=== PATIENT | female | born 1960 | race Caucasian/White ===

== ENCOUNTER → 2021-04-04 10:08 | Outpatient (CLI) | payer OTHER, SELFPAY ==
--- NOTE | 2021-04-04 10:13 | US_ITS ---
PROCEDURE: US TRANSVAGINAL CLINICAL INDICATION: LLQP COMPARISON: No exams were available for comparison FINDINGS: UTERUS: x 4cmx 3cm with a combined endometrial thickness of 4mm LEFT OVARY: [id number] with a volume of 1.4ml. RIGHT OVARY: 2cmx [id number] with a volume of 1ml. 1.5 cm anterior uterine fibroid. IMPRESSION: 1.5 cm anterior uterine fibroid. Otherwise unremarkable transvaginal ultrasound. Dictated by: Luis Felipe Pascual MD 04/04/2021 11:26 Luis Felipe Pascual MD in [place] 04/04/2021 11:26
--- NOTE | 2021-04-04 10:13 | MM_ITS ---
PROCEDURE: MM DIG SCREENING MAMM BI W/CAD Digital Breast Tomosynthesis Included CLINICAL INDICATION: Routine Mammogram Screening There is no personal or family history of breast cancer. COMPARISON: Previous outside images from [facility] were obtained but only the CC view lateral breast was visualized of four views study. TECHNIQUE: Standard CC and MLO images and 3D Tomosynthesis was obtained. R2 CAD reviewed. FINDINGS: Moderate diffuse fibroglandular densities are seen throughout both breast and the findings are bilateral and symmetrical. There is faint arterial calcification in each breast. There are few scattered benign-appearing microcalcifications in each breast. There is no suspicious lesion and no suspicious microcalcifications. IMPRESSION: Fibrofatty parenchyma with no suspicious lesions seen BI-RAD Category: 2 Benign Finding(s) FOLLOW-UP: 1YR 1 Year Follow-up (A letter has been sent to the patient regarding results of the study.) Dictated by: Dr. Ba Crews MD 04/09/2021 16:17 Dr. Ba Crews MD in [place] 04/09/2021 16:17
== END ==
PROVIDERS: PCP Family Medicine; Visit Provider Nurse Practitioner Obstetrics & Gynecology
DX: Z12.31 Encounter for screening mammogram for malignant neoplasm of breast (principal); R10.32 Left lower quadrant pain
CPT/HCPCS: 76830; 77063; 77067

== ENCOUNTER → 2023-01-14 07:27 | Outpatient (CLI) | payer OTHER, SELFPAY ==
[2023-01-14 07:51] LABS: Blood Urea Nitrogen 12 mg/dl (7-17); Estimated Glomerular Filt Rate 85 ml/min (>60); GFR (African American) 103 ML/MIN (>60)
--- NOTE | 2023-01-14 08:03 | CT_ITS ---
FINAL REPORT TECHNIQUE: After the administration of IV contrast, axial images through the abdomen was performed by computed tomography. This study was performed with techniques to keep radiation doses as low as reasonably achievable (ALARA). Individualized dose reduction techniques using automated exposure control or adjustment of mA and/or kV according to the patient's size were employed. CLINICAL HISTORY: HERNIA OF ANTERIOR ABDOMINAL WALL FINDINGS: There are nonspecific ground-glass opacities in the right middle lobe, infectious or inflammatory process is not excluded. There is fatty infiltration of the liver. There is a small cyst in the left lobe of the liver. Gallstones are seen in the gallbladder. There is slight asymmetric left perinephric stranding of uncertain etiology. There is no hydronephrosis or mass. The remaining solid abdominal organs are unremarkable. There is no small bowel obstruction. There is a midline ventral hernia above the level of the umbilicus. The hernia contains fat and anterior wall transverse colon. The defect measures 4 cm in axial dimension. There is no evidence of lymphadenopathy or ascites. There is moderate atherosclerotic disease. 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 Contrast is seen distal to this. There is no acute osseous abnormality. There are several lower thoracic spine compression fractures, age indeterminate. There are multilevel kyphoplasties in the lumbar spine. IMPRESSION: Supraumbilical hernia containing fat and portion of transverse colon. No evidence of obstruction. Nonspecific right middle lobe ground-glass opacities. Mild nonspecific asymmetric left perinephric stranding. 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 Reviewed, Interpreted and Dictated by Enid Kohler MD Transcribed by Yamileth Goyal Authenticated and [facility]
== END ==
PROVIDERS: PCP Family Medicine; Visit Provider Surgery
DX: K43.9 Ventral hernia without obstruction or gangrene (principal)
CPT/HCPCS: 36415; 74160; 82565; 84520; 94060; 94726; 94729; Q9967

== ENCOUNTER 2023-04-18 15:05 | Inpatient (IN) | payer OTHER, SELFPAY ==
[2023-04-18] VITALS (9 sets, daily range): BP systolic 70–103; BP diastolic 46–75; PULSE 86–106; RESP 17–22; TEMP 36.4–37.2; O2SAT 91–100; BMI 22.2; BMI 23.6
--- NOTE | 2023-04-18 15:10 | PC.NURSE ---
MD MADE AWARE OF B/P BOLUS STARTED
--- NOTE | 2023-04-18 15:11 | PC.NURSE ---
DR SILVA AT BEDSIDE
--- NOTE | 2023-04-18 15:15 | HMH.EDGENADL ---
Discharge Plan Disposition Patient Disposition: Admitted Condition: Fair Chief Complaint: Weakness Prescriptions Prescriptions: No Action triamterene-hydrochlorothiazid 37.5-25 mg tablet PO bupropion HCl 150 mg tablet sustained-release 12 hr PO metoprolol tartrate 25 mg tablet PO aspirin 81 mg tablet,chewable 81 mg PO levetiracetam 250 mg tablet PO clopidogrel 75 mg tablet PO alendronate 70 mg tablet PO atorvastatin 80 mg tablet PO pantoprazole 40 mg tablet,delayed release (DR/EC) PO albuterol sulfate 90 mcg/actuation HFA aerosol inhaler INHALATION fluticasone furoate-vilanterol 100-25 mcg/dose blister with device INHALATION Patient Comments: INHALE 1 PUFF INTO LUNGS EVERY DAY acetaminophen [Tylenol] 325 mg capsule 325 mg PO QID PRN nicotine [Nicoderm CQ] 21 mg/24 hr patch 24 hour 1 patch TRANSDERMA DAILY acetaminophen-codeine 300-30 mg tablet 1 tab PO BID PRN (Reason: pain) Qty: 20 0RF Referrals Follow up/Referrals: Jurgen Hartley MD [Primary Care Provider] - See instructions Clinical Impressions Clinical Impression: Acute dehydration, Acute hypokalemia, Hypoglycemia Diarrhea Qualifiers: Diarrhea type: presumed infectious Qualified Code(s): R19.7 - Diarrhea, unspecified Discharge ED Provider: Smita Quezada Adult HPI General Chief complaint: Weakness Stated complaint: WEAKNESS Time Seen by Provider: 04/18/23 15:10 Mode of Arrival: EMS Source of Information: Patient and EMS Limitations: No Limitations Description of Symptoms (Recalled from ER Triage Doc. by RN): PT BROUGHT IN VIA EMS FOR SEVERAL DAYS OF DIARRHEA AND WEAKNESS. PT HYPOTENSIVE PER EMS AND UPON ARRIVAL. NOTIFIED History of Present Illness HPI narrative: The patient complains of 4 days of diarrhea. She feels dizzy today. She denies any hematochezia or vomiting. Related Data Home Medications Medication Instructions Recorded Confirmed acetaminophen 325 mg capsule 325 mg PO QID PRN 03/31/21 03/31/21 (Tylenol) albuterol sulfate 90 mcg/actuation inhalation 03/31/21 03/31/21 aerosol inhaler alendronate 70 mg tablet mg PO 03/31/21 03/31/21 aspirin 81 mg chewable tablet 81 mg PO 03/31/21 03/31/21 atorvastatin 80 mg tablet mg PO 03/31/21 03/31/21 bupropion HCl 150 mg tablet,12 hr mg PO 03/31/21 03/31/21 sustained-release clopidogrel 75 mg tablet mg PO 03/31/21 03/31/21 fluticasone furoate 100 ea inhalation 03/31/21 03/31/21 mcg-vilanterol 25 mcg/dose inhalation powder levetiracetam 250 mg tablet mg PO 03/31/21 03/31/21 metoprolol tartrate 25 mg tablet mg PO 03/31/21 03/31/21 nicotine 21 mg/24 hr daily 1 patch transdermal DAILY 03/31/21 03/31/21 transdermal patch (Nicoderm CQ) pantoprazole 40 mg tablet,delayed mg PO 03/31/21 03/31/21 release triamterene 37.5 tab PO 03/31/21 03/31/21 mg-hydrochlorothiazide 25 mg tablet Previous Rx's Medication Instructions Recorded acetaminophen 300 mg-codeine 30 mg 1 tab PO BID PRN pain #20 tabs 03/31/21 tablet Allergies Allergy/AdvReac Type Severity Reaction Status Date / Time ibuprofen Allergy Verified 03/31/21 16:13 [facility] Disclaimer: The information contained in this section may have been updated after the patient was seen, as this information can be updated by other users. Social History Smoking Status: Current every day smoker tobacco type: cigarettes alcohol intake: never current occupational status: other Travel in the last 8 weeks: None ROS Obtained: Yes All systems reviewed & no additional complaints except as documented Physical Exam General General appearance: alert and in no apparent distress Head Head exam: atraumatic Eye Eye exam: Present normal appearance; Absent scleral icterus or jaundice ENT ENT exam: Present normal exam and mucous membranes moist Neck Neck exam: Present
[2023-04-18 15:25] LABS: Basophils # 0.1 K/mm3 (0-0.2); Basophils % 0.9 % (0.1-2.0); Eosinophils % 0.6 % (0.1-12.0); Hemoglobin 12.4 g/dL (12.2-16.2); Lymphocytes # 0.7 K/mm3 (0.7-4.5); Lymphocytes % 12.6 % (10-50); Mean Corpuscular HGB Conc 31.1 g/dL (31.8-35.4); Mean Corpuscular Hemoglobin 39.7 pg (27.0-31.2); Mean Corpuscular Volume 127.7 fl (81-99); Mean Platelet Volume 10.3 fl (7.4-10.4); Monocytes # 0.3 K/mm3 (0.1-1.0); Monocytes % 5.5 % (1.7-9.3); Neutrophils # 4.5 K/mm3 (1.8-7.8); Neutrophils % 80.5 % (37.0-80.0); Platelet Count 117 K/mm3 (142-424); Red Blood Count 3.13 M/mm3 (4.20-5.40); Red Cell Distribution Width 15.5 % (11.5-17.5); White Blood Count 5.6 K/mm3 (4.8-10.8)
[2023-04-18 15:27] LABS: Chloride 90 mmol/L (98-107); Sodium 136 mmol/L (136-145)
--- NOTE | 2023-04-18 15:27 | PC.NURSE ---
FAMILY UPDATED AT THIS TIME
[2023-04-18 15:29] LABS: Blood Urea Nitrogen 19 mg/dl (7-17); Creatinine Clearance Estimated 47 mL/min (50-200); Estimated Glomerular Filt Rate 38 ml/min (>60); GFR (African American) 46 ML/MIN (>60)
[2023-04-18 15:30] LABS: Alanine Aminotransferase 51 U/L (12-78); Alkaline Phosphatase 134 U/L (38-126); Anion Gap 22.7 mEq/L (5-15); Aspartate Amino Transferase 152 U/L (14-36); Bilirubin,Total 8.9 mg/dl (0.2-1.3); Calcium 6.8 mg/dl (8.4-10.2); Carbon Dioxide 26 mmol/L (22.0-30.0); Globulin 2.9 g/dL (1.3-3.2); Total Protein,Serum 5.9 g/dl (6.3-8.2)
[2023-04-18 15:37] LABS: Glucose 39 mg/dl (74-100); Potassium 2.7 mmoL/L (3.5-5.1)
--- NOTE | 2023-04-18 15:40 | INFXCTL.NOTE ---
D50 BOLUS GIVEN AT THIS TIME, PT REPOSITIONED IN BED. FAMILY AT BEDSIDE
--- NOTE | 2023-04-18 15:40 | PC.NURSE ---
Primary RN and MD Dr Quezada aware of critical results received, Potassium 2.7 and Glucose 39.
--- NOTE | 2023-04-18 15:45 | PC.NURSE ---
1545 D50 GIVEN PER VERBAL MD ORDER FOR GLUCOSE OF 39
[2023-04-18 16:33] LABS: Coronavirus 19, PCR Not Detected (NotDetected); Influenza A, PCR Not Detected (NotDetected); Influenza B, PCR Not Detected (NotDetected)
--- NOTE | 2023-04-18 17:06 | PC.NURSE ---
repeat fsbs 111 pt states no needs at this time, call harper in reach family at BS
--- NOTE | 2023-04-18 17:08 | PC.NURSE ---
DR SILVA SPEAKING WITH DR SUAREZ FOR ADMISSION
--- NOTE | 2023-04-18 17:13 | PC.NURSE ---
notified house furnishings supervisor of admission
--- NOTE | 2023-04-18 17:35 | PC.NURSE ---
REPORT GIVEN TO RULA RN
--- NOTE | 2023-04-18 19:31 | EXP.HP ---
History of Present Illness *Admission Date: 04/18/23 *Reason for visit:: Weakness, diarrhea *History of present illness: 62yo female with history of coronary artery bypass surgery, cirrhosis, alcoholism, tobacco use disorder, COPD. She presented to the ER after 3 to 4 days of nausea, diarrhea, weakness. Poor p.o. intake. Family has been encouraging her to come to the hospital for several days but she refused to come until today. Feels weak, unable to ambulate independently. Denies any blood in vomit or stools. Numerous electrolyte and nutritional deficiencies identified on work-up in the ER. Patient has severe hypokalemia, hypocalcemia, hypoglycemia in the 30s on arrival. Additionally with ANDERS. Appears to have some worsening component of her cirrhosis. Given these abnormalities, ER consulted medicine for admission. Concern for nutritional deficiency secondary to her alcoholism worsened by gastroenteritis. After arrival to the floor, patient provides history along with the supplementation from family at bedside. She has history significant for CABG, cirrhosis diagnosed many years ago secondary to her alcoholism. Additionally has COPD and a seizure disorder. Has had withdrawal seizures from alcohol cessation in the past. Last drink 5 days ago. Used to drink heavily with at least a pint of vodka a day. Now drinks 2-4 [place]'s a day. Smokes 10-20 handrolled cigarettes daily. Received D50 in the ER for hypoglycemia. Additionally labs noted to have macrocytosis. Concerning for vitamin deficiency secondary to her alcoholism. [facility] Disclaimer: The information contained in this section may have been updated after the patient was seen, as this information can be updated by other users. Medical History Alcoholism Cirrhosis COPD (chronic obstructive pulmonary disease) Hx of completed stroke Seizure disorder Surgical History Hx of CABG Family History Alcoholism Social History (Updated 04/18/23 @ 19:35 by Luis Felipe Solitario MD) Smoking Status: Current every day smoker tobacco type: cigarettes alcohol intake: current current occupational status: other Travel in the last 8 weeks: None Review of Systems Review of Systems Review of systems (narrative): 14 point review of systems performed, pertinent positives and negatives as per [facility] Meds Home Medications and Allergies Home Medications Medication Instructions Recorded Confirmed Type acetaminophen 300 mg-codeine 30 mg 1 tab PO BID PRN pain #20 tabs 03/31/21 03/31/21 Rx tablet acetaminophen 325 mg capsule 325 mg PO QID PRN 03/31/21 03/31/21 History (Tylenol) albuterol sulfate 90 mcg/actuation inhalation 03/31/21 03/31/21 History aerosol inhaler alendronate 70 mg tablet mg PO 03/31/21 03/31/21 History aspirin 81 mg chewable tablet 81 mg PO 03/31/21 03/31/21 History atorvastatin 80 mg tablet mg PO 03/31/21 03/31/21 History bupropion HCl 150 mg tablet,12 hr mg PO 03/31/21 03/31/21 History sustained-release clopidogrel 75 mg tablet mg PO 03/31/21 03/31/21 History fluticasone furoate 100 ea inhalation 03/31/21 03/31/21 History mcg-vilanterol 25 mcg/dose inhalation powder levetiracetam 250 mg tablet mg PO 03/31/21 03/31/21 History metoprolol tartrate 25 mg tablet mg PO 03/31/21 03/31/21 History nicotine 21 mg/24 hr daily 1 patch transdermal DAILY 03/31/21 03/31/21 History transdermal patch (Nicoderm CQ) pantoprazole 40 mg tablet,delayed mg PO 03/31/21 03/31/21 History release triamterene 37.5 tab PO 03/31/21 03/31/21 History mg-hydrochlorothiazide 25 mg tablet New Prescriptions to Start Prescriptions: Allergies Allergy/AdvReac Type Severity Reaction Status Date / Time ibuprofen Allergy Verified 03/31/21 16:13 Exam Data for Last 24 hours Vital signs and Labs for La
--- NOTE | 2023-04-18 19:40 | PC.NURSE ---
A&OX4. PT TOLERATING RA WELL. PT HAS INTERMITTENT COUGH, NON PRODUCTIVE THUS FAR. GRAND-DAUGHTERS AT BEDSIDE. PLUS 2 PITTING EDEMA TO BLE. SCRATCH FROM PET DOG TO R LOWER LEG. DRESSING IN PLACE, PICTURE ON CHART. SEIZURE PADS IN PLACE. PT BATHED UPON ARRIVAL TO FLOOR. BRIEF IN PLACE, IS INCONTINENT TO BOWEL AT THIS TIME. NO WITHDRAWAL SYMPTOMS NOTED AT THIS TIME. VSS.
--- NOTE | 2023-04-18 19:44 | PC.WOUNDNOTE ---
SCRATCH TO Theresa VOGEL FROM DOG.
[2023-04-18 20:02] LABS: INR 1.75 (0.9-1.1); Prothrombin Time 18.3 seconds (10.1-12.5)
[2023-04-18 20:06] LABS: Alanine Aminotransferase 50 U/L (12-78); Albumin Level 2.6 g/dl (3.5-5.0); Albumin/Globulin Ratio 1.1 (1.1-1.8); Alkaline Phosphatase 121 U/L (38-126); Anion Gap 20.4 mEq/L (5-15); Aspartate Amino Transferase 146 U/L (14-36); Bilirubin,Total 8.6 mg/dl (0.2-1.3); Blood Urea Nitrogen 17 mg/dl (7-17); Calcium 6.1 mg/dl (8.4-10.2); Carbon Dioxide 20 mmol/L (22.0-30.0); Chloride 97 mmol/L (98-107); Creatinine Clearance Estimated 58 mL/min (50-200); Estimated Glomerular Filt Rate 46 ml/min (>60); GFR (African American) 55 ML/MIN (>60); Globulin 2.4 g/dL (1.3-3.2); Glucose 66 mg/dl (74-100); Phosphorous 3.1 mg/dl (2.5-4.5); Sodium 135 mmol/L (136-145)
[2023-04-18 20:10] LABS: Ethyl Alcohol < 10 mg/dl (0-10); Potassium 2.4 mmoL/L (3.5-5.1)
[2023-04-18 21:26] LABS: Folate 4.37 ng/mL
[2023-04-18 21:27] LABS: Vitamin B12 > 1000 pg/mL (239-931)
--- NOTE | 2023-04-18 21:50 | PC.NURSE ---
LOW POTASSIUM 2.4 REPORTED TO OSIEL De Leon APRN
[2023-04-18 22:17] LABS: Chloride 99 mmol/L (98-107); Sodium 136 mmol/L (136-145)
[2023-04-18 22:19] LABS: Blood Urea Nitrogen 18 mg/dl (7-17); Creatinine Clearance Estimated 58 mL/min (50-200); Estimated Glomerular Filt Rate 46 ml/min (>60); GFR (African American) 55 ML/MIN (>60)
[2023-04-18 22:20] LABS: Alanine Aminotransferase 42 U/L (12-78); Albumin Level 2.5 g/dl (3.5-5.0); Alkaline Phosphatase 108 U/L (38-126); Anion Gap 17.5 mEq/L (5-15); Aspartate Amino Transferase 131 U/L (14-36); Bilirubin,Total 7.9 mg/dl (0.2-1.3); Calcium 6.3 mg/dl (8.4-10.2); Carbon Dioxide 22 mmol/L (22.0-30.0); Globulin 2.5 g/dL (1.3-3.2); Glucose 69 mg/dl (74-100)
[2023-04-18 22:33] LABS: Potassium 2.5 mmoL/L (3.5-5.1)
[2023-04-18 22:34] LABS: Magnesium 0.6 mg/dl (1.6-2.3)
--- NOTE | 2023-04-18 22:37 | PC.NURSE ---
CRITICAL POTASSIUM AND MAG 2.5 POTASSIUM AND 0.6 MAG REPORTED TO TANNER De Leon, FAMILY DAY CARE PROVIDER. CURRENTLY HAS POTASSIUM 20MEQ INFUSING AT 50ML/HR/PUMP IN NEW IV #20 RFA. HAS CALCIUM GLUCONATE 2 GM IN 100 NS INFUSING IN LAC. WILL HANG RALLY PK FLUIDS WHEN CALCIUM GLUCONATE IS COMPLETE WHICH HAS 2 GM MAG IN IT. PLACED ON TELE.
[2023-04-19] VITALS (31 sets, daily range): BP systolic 59–121; BP diastolic 38–78; PULSE 91–170; RESP 19–22; TEMP 36.6–37.4; O2SAT 84–97; BMI 24.5; BMI 23.6
[2023-04-19 00:54] LABS: POC Glucose,Bedside 79 (70-110)
--- NOTE | 2023-04-19 04:56 | PC.NURSE ---
PATIENT MEDICATED FOR LOW MAG, LOW POTASSIUM, AND LOW CALCIUM. CONTINUES TO HAVE BOUTS OF DIARRHEA. HAS BEEN TACHYCARDIC THIS SHIFT TO INCLUDE A BOUT OF SVT 150/MIN WHICH CONVERTED ON ITS OWN. BPs CONT TO RUN LOW 80s/50s. CIW 4-5. Is incont B&B.
--- NOTE | 2023-04-19 06:20 | PC.NURSE ---
critical lab mag 1.0 called to OSIEL De Leon APRN
[2023-04-19 06:55] LABS: Lymphocytes # 0.5 K/mm3 (0.7-4.5); Monocytes # 0.1 K/mm3 (0.1-1.0)
[2023-04-19 06:59] LABS: Basophils # 0.1 K/mm3 (0-0.2); Basophils % 2.2 % (0.1-2.0); Eosinophils % 0.5 % (0.1-12.0); Lymphocytes % 19.4 % (10-50); Mean Corpuscular Hemoglobin 39.3 pg (27.0-31.2); Mean Corpuscular Volume 130.9 fl (81-99); Mean Platelet Volume 10.8 fl (7.4-10.4); Monocytes % 5.2 % (1.7-9.3); Neutrophils # 1.7 K/mm3 (1.8-7.8); Neutrophils % 72.6 % (37.0-80.0); Platelet Count 91 K/mm3 (142-424); Red Blood Count 2.82 M/mm3 (4.20-5.40); White Blood Count 2.4 K/mm3 (4.8-10.8)
[2023-04-19 07:00] LABS: Hemoglobin 11.1 g/dL (12.2-16.2)
--- NOTE | 2023-04-19 07:02 | PC.NURSE ---
BLD SUGAR 49 THIS AM. RECEIVED D50 1 AMP IVP. RECHECK BLD SUGAR WAS 99. ALERT. SITTING UP EATING BREAKFAST.
[2023-04-19 07:06] LABS: Alanine Aminotransferase 42 U/L (12-78); Albumin Level 2.5 g/dl (3.5-5.0); Alkaline Phosphatase 143 U/L (38-126); Anion Gap 19.1 mEq/L (5-15); Aspartate Amino Transferase 193 U/L (14-36); Bilirubin,Total 7.8 mg/dl (0.2-1.3); Blood Urea Nitrogen 20 mg/dl (7-17); Calcium 6.7 mg/dl (8.4-10.2); Carbon Dioxide 18 mmol/L (22.0-30.0); Chloride 102 mmol/L (98-107); Creatinine Clearance Estimated 58 mL/min (50-200); Estimated Glomerular Filt Rate 46 ml/min (>60); GFR (African American) 55 ML/MIN (>60); Globulin 2.6 g/dL (1.3-3.2); Potassium 3.1 mmoL/L (3.5-5.1); Sodium 136 mmol/L (136-145); Total Protein,Serum 5.1 g/dl (6.3-8.2)
[2023-04-19 07:07] LABS: POC Glucose,Bedside 99 (70-110)
[2023-04-19 07:10] LABS: Glucose 44 mg/dl (74-100)
--- NOTE | 2023-04-19 07:53 | HMH.PHAINT1 ---
Pharmacy Intervention Comments: Patient's home medications verified and reviewed with patient and external pharmacy. -Edwin Montano, Pharm Student
--- NOTE | 2023-04-19 07:54 | XR_ITS ---
FINAL REPORT CLINICAL HISTORY: dyspnea, new O2 requirement FINDINGS: SINGLE VIEW CHEST There is cardiomegaly present. The patient is status postmedian sternotomy. There are bibasilar pulmonary opacities with the left being greater than the right, which is consistent with atelectasis or pneumonia. There is no pneumothorax. IMPRESSION: Bibasilar pulmonary opacities, left greater than right, consistent with atelectasis or pneumonia. Reviewed, Interpreted and Dictated by Kristian Petersen III, MD Transcribed by Rufina Delgado Authenticated and . [facility]
--- NOTE | 2023-04-19 09:32 | PC.NURSE ---
Courtesy Tech Note: pt is sleeping with call harper within reach.
[2023-04-19 11:15] LABS: POC Glucose,Bedside 86 (70-110)
--- NOTE | 2023-04-19 13:48 | EXP.ACUTE.PN ---
Subjective *Date: 04/19/23 *Time: 13:48 Interval history: Patient clinically worsened overnight. Has developed low blood pressure this morning. Electrolytes grossly abnormal, replating overnight. Started on oxygen. Denies chest pain, nausea, vomiting. Had 1 bowel movement overnight. Medical Exam Vital signs and Labs for Last 24 Hours: Vital Signs Temp Pulse Pulse Resp BP BP Pulse Ox 04/19/23 12:00 130 H 04/19/23 11:47 120 H 20 69/46 L 89 L 04/19/23 11:32 116 H 21 59/38 L 91 L 04/19/23 11:30 118 H 21 62/38 L 92 L 04/19/23 10:59 118 H 20 87/48 L 92 L 04/19/23 12:15 124 H 22 95/64 L 93 L 04/19/23 12:00 132 H 22 79/47 L 91 L 04/19/23 11:28 97.8 F 04/19/23 10:53 80/64 L 04/19/23 08:00 120 H 04/19/23 08:00 97.9 F 122 H 20 88/52 L 93 L 04/19/23 04:00 97.8 F 119 H 20 80/50 L 96 04/19/23 04:00 120 H 04/19/23 01:00 115 H 04/19/23 00:00 98.3 F 116 H 22 84/48 L 84 L 04/18/23 20:00 97 04/18/23 20:00 98.1 F 105 H 20 81/47 L 97 04/18/23 19:14 98.6 F 105 H 20 84/50 L 91 L 04/18/23 17:45 98.9 F 100 H 18 101/60 L 04/18/23 17:00 100 H 101/60 L 99 04/18/23 16:30 86 99/59 L 100 04/18/23 16:00 98 H 103/75 L 100 04/18/23 15:30 96 H 17 90/48 L 95 04/18/23 15:20 104 H 22 80/49 L 95 04/18/23 15:05 97.6 F 106 H 20 70/46 L 96 Intake and Output 04/18/23 04/19/23 04/19/23 23:59 07:59 15:59 Intake Total 1200 / 2970.163 1770.163 / 2970.163 Output Total 0 / 0 0 / 0 Balance 0 / 200 1200 / 2970.163 1770.163 / 2970.163 Intake: Intake, Oral Amount 360 / 360 Intake, Total IV Amount 1200 / 2610.163 1410.163 / 2610.163 Calcium Gluconate 2,000 mg In 0 100 / 100 .9 % Sodium Chloride 100 ml @ 60 mls/hr IV ONCE ONE Rx#: [id number] KCl 20mEq/100ml 100 ml @ 50 mls 100 / 100 /hr IV ONCE ONE Rx#:[id number] Mvi, Adult No.1 with Vit K 10 1000 / 2392 1392 / 2392 ml Thiamine HCl 100 mg Magnesium Sulfate 2 gm In Lactated Ringers 1000ML 1,000 ml @ 125 mls/hr IV DAILY [facility] Rx #:[id number] Output: Output, Urine Amount 0 / 0 0 / 0 Other: Number of Unmeasured Voids 1 0 Number of Bowel Movements 2 1 Weight 75.013 kg 75 kg Patient Weight 04/19/23 23:59 Weight 75 kg Laboratory Results - last 24 hr 04/18/23 15:06: WBC 5.6, RBC 3.13 L, Hgb 12.4, Hct 40.0, MCV 127.7 H, MCH 39.7 H, MCHC 31.1 L, RDW 15.5, Plt Count 117 L, MPV 10.3, Neut % (Auto) 80.5 H, Lymph % (Auto) 12.6, [place] % (Auto) 5.5, Eos % (Auto) 0.6, Baso % (Auto) 0.9, Neut # (Auto) 4.5, Lymph # (Auto) 0.7, [place] # (Auto) 0.3, Eos # (Auto) 0.0, Baso # (Auto) 0.1, Sodium 136, Potassium 2.7 L*, Chloride 90 L, Carbon Dioxide 26, Anion Gap 22.7 H, BUN 19 H, Creatinine 1.40 H, Estimated Creat Clear 47, Estimated GFR 38 L, Est GFR ( Amer) 46 L, Glucose 39 L*, Calcium 6.8 L, Phosphorus 4.0, Total Bilirubin 8.9 H, AST 152 H, ALT 51, Alkaline Phosphatase 134 H, Total Protein 5.9 L, Albumin 3.0 L, Globulin 2.9, Albumin/Globulin Ratio 1.0 L 04/18/23 16:30: SARS-CoV-2 (PCR) Not detected, Influenza A Untype (PCR) Not detected, Influenza Type B (PCR) Not detected 04/18/23 19:35: PT 18.3 H, INR 1.75 H, APTT 33.0 H, Sodium 135 L, Potassium 2.4 L*, Chloride 97 L, Carbon Dioxide 20 L, Anion Gap 20.4 H, BUN 17, Creatinine 1.20 H, Estimated Creat Clear 58, Estimated GFR 46 L, Est GFR ( Amer) 55 L, Glucose 66 L D, Calcium 6.1 L, Phosphorus 3.1, Total Bilirubin 8.6 H, AST 146 H, ALT 50, Alkaline Phosphatase 121, Total Protein 5.0 L, Albumin 2.6 L D, Globulin 2.4, Albumin/Globulin Ratio 1.1, Vitamin B12 > 1000 H, Folate 4.37, Plasma/Serum Alcohol < 10 04/18/23 22:06: Sodium 136, Potassium 2.5 L*, Chloride 99, Carbon Dioxide 22, Anion Gap 17.5 H, BUN 18 H, Creatinine 1.20 H, Estimated Creat Clear 58, Estimated GFR 46 L, Est GFR ( Kalina
--- NOTE | 2023-04-19 14:06 | PC.NURSE ---
Courtesy Tech Note: family at bedside, call harper within reach. no requests voiced at this time.
--- NOTE | 2023-04-19 14:08 | DIET.NUTRFU ---
lives with daughter and granddaughter. decline in mobility, dependent on others. Before this recent illness, family reported she was going to bathroom independently, EtOH with cirrhosis, last drink 5 days ago. Smoker 20cigs/day. diarrhea x5 days with no intake. Wt in [place] office was #164 03/31. +2 edema. Patient reported her stomach was hard full of fluid, CBW 165#. Spoke to patient today with grand kids present. Over the last year she has only been grazing throughout day eating couple bites here and there. She dislikes ensure/boost willing to try ensure clear. RD educated on low sodium to avoid more fluid gains, she does add salt at times. Based o edema, lack of intake, labs and change in mobility she triggers for severe PCM, provider aware
[2023-04-19 14:54] LABS: Chloride 99 mmol/L (98-107); Potassium 3.1 mmoL/L (3.5-5.1); Sodium 136 mmol/L (136-145)
[2023-04-19 14:56] LABS: Alanine Aminotransferase 52 U/L (12-78); Aspartate Amino Transferase 223 U/L (14-36); Blood Urea Nitrogen 21 mg/dl (7-17); Creatinine Clearance Estimated 58 mL/min (50-200); Estimated Glomerular Filt Rate 46 ml/min (>60); GFR (African American) 55 ML/MIN (>60)
[2023-04-19 14:57] LABS: Albumin Level 2.7 g/dl (3.5-5.0); Albumin/Globulin Ratio 0.9 (1.1-1.8); Alkaline Phosphatase 168 U/L (38-126); Anion Gap 18.1 mEq/L (5-15); Bilirubin,Total 9.2 mg/dl (0.2-1.3); Calcium 7.6 mg/dl (8.4-10.2); Carbon Dioxide 22 mmol/L (22.0-30.0); Globulin 2.9 g/dL (1.3-3.2); Glucose 80 mg/dl (74-100); Total Protein,Serum 5.6 g/dl (6.3-8.2)
[2023-04-19 14:58] LABS: Magnesium 1.8 mg/dl (1.6-2.3)
--- NOTE | 2023-04-19 16:04 | PC.NURSE ---
Courtesy Tech Note: pt received a bed bath and a gown change. pt is right side lying. call harper within reach, no further requests at this time.
[2023-04-19 17:17] LABS: POC Glucose,Bedside 100 (70-110)
--- NOTE | 2023-04-19 17:17 | PC.NURSE ---
Patient on 10mcg of levophed. Titrating per protocol to maintain map of 65 or greater. Pain reported in abdomen, morphine given relief noted. Heart rate 130's, 2LNC. Patient alert and oriented. Blood sugars stable. No other changes noted.
--- NOTE | 2023-04-19 18:14 | ECG_ITS ---
APPROVED REPORT Exam: Resting ECG HR:176 bpm ECG Measurements Heart Rate 176 AXES QRSd 74 QRS 22 QT 270 T 61 QTc 364 Conclusion ATRIAL FIBRILLATION WITH RAPID VENTRICULAR RESPONSE LOW QRS VOLTAGE IN PRECORDIAL LEADS [QRS DEFLECTION < 1.0 mV IN CHEST LEADS] POSSIBLE ANTERIOR MYOCARDIAL INFARCTION , OF INDETERMINATE AGE [30 ms Q WAVE IN V3/V4, OR R < 0.2 mV IN V4] CRITICAL TEST RESULT UNCONFIRMED REPORT Electronically signed by : Benny Bernard MD 04/20/2023 20:28:54
--- NOTE | 2023-04-19 18:30 | PC.NURSE ---
pt heart rate sustaining 170's, ekg obtained, rhythm afib with rvr. Dr. Solitario notified. IV metoprolol ordered
[2023-04-19 21:44] LABS: POC Glucose,Bedside 228 (70-110)
[2023-04-20] VITALS (45 sets, daily range): BP systolic 74–145; BP diastolic 23–91; PULSE 102–138; RESP 16–29; TEMP 36.4–37.3; O2SAT 80–100; BMI 24.3
[2023-04-20 05:25] LABS: POC Glucose,Bedside 133 (70-110)
--- NOTE | 2023-04-20 05:27 | PC.NURSE ---
04/19/230--Increased Levo to 25mcg 1950--Decreased Levo to 20mcg 2016--Increased Levo to 22.5mcg 2129--Decreased Levo to 20mcg 5--Decreased Levo to 18mcg 2345--Increased Levo to 20mcg 04/20/23 0000--Decreased Levo to 18mcg 0150--Increased Levo to 20mcg Many titrations on the Levo throughout the night, but since 0150, it has been at 20mcg with MAPS ranging from 65-70. No acute distress noted and will continue to monitor.
--- NOTE | 2023-04-20 07:30 | XR_ITS ---
PROCEDURE INFORMATION: Exam: XR Chest Exam date and time: 04/20/2023 7:58 AM Age: 62 years old Clinical indication: Shortness of breath; Additional info: Increased o2 requirement TECHNIQUE: Imaging protocol: Radiologic exam of the chest. Views: 1 view. COMPARISON: CR XR CHEST PORTABLE 04/19/2023 8:15 AM FINDINGS: Lungs: Emphysematous change, interstitial disease, and basilar airspace disease. Pleural spaces: Small left pleural effusion. Heart/Mediastinum: No cardiomegaly. Vasculature: Calcification of the thoracic aorta. New Bones/joints: Osteopenia and degenerative change. Median sternotomy with broken sutures. IMPRESSION: 1. Emphysematous change, interstitial disease, and basilar airspace disease. 2. Small left pleural effusion. 3. Additional findings as described above.
[2023-04-20 07:54] LABS: Basophils # 0.1 K/mm3 (0-0.2); Eosinophils # 0.1 K/mm3 (0.0-0.4); Eosinophils % 0.8 % (0.1-12.0); Hematocrit 40.9 % (37.0-47.0); Hemoglobin 12.6 g/dL (12.2-16.2); Mean Corpuscular HGB Conc 30.8 g/dL (31.8-35.4); Mean Corpuscular Volume 130.8 fl (81-99); Mean Platelet Volume 8.9 fl (7.4-10.4); Monocytes # 0.2 K/mm3 (0.1-1.0); Monocytes % 3.2 % (1.7-9.3); Neutrophils # 5.1 K/mm3 (1.8-7.8); Neutrophils % 79.8 % (37.0-80.0); Platelet Count 94 K/mm3 (142-424); Red Blood Count 3.13 M/mm3 (4.20-5.40); Red Cell Distribution Width 15.1 % (11.5-17.5); White Blood Count 6.4 K/mm3 (4.8-10.8)
[2023-04-20 07:55] LABS: Mean Corpuscular Hemoglobin 40.3 pg (27.0-31.2)
--- NOTE | 2023-04-20 08:00 | PC.NURSE ---
Turned 02 down to 4L NC. Pt tolerating well. Will continue to monitor.
[2023-04-20 08:03] LABS: Chloride 100 mmol/L (98-107); Potassium 3.8 mmoL/L (3.5-5.1); Sodium 133 mmol/L (136-145)
[2023-04-20 08:06] LABS: Alanine Aminotransferase 54 U/L (12-78); Albumin Level 2.7 g/dl (3.5-5.0); Albumin/Globulin Ratio 0.9 (1.1-1.8); Alkaline Phosphatase 183 U/L (38-126); Anion Gap 15.8 mEq/L (5-15); Aspartate Amino Transferase 194 U/L (14-36); Bilirubin,Total 10.3 mg/dl (0.2-1.3); Blood Urea Nitrogen 23 mg/dl (7-17); Calcium 7.2 mg/dl (8.4-10.2); Carbon Dioxide 21 mmol/L (22.0-30.0); Creatinine Clearance Estimated 72 mL/min (50-200); Estimated Glomerular Filt Rate 56 ml/min (>60); GFR (African American) 68 ML/MIN (>60); Glucose 86 mg/dl (74-100); Magnesium 1.7 mg/dl (1.6-2.3); Total Protein,Serum 5.7 g/dl (6.3-8.2)
--- NOTE | 2023-04-20 08:48 | PC.NURSE ---
Turned 02 down to 3L NC. Pt tolerating well. Will continue to monitor.
--- NOTE | 2023-04-20 10:09 | PC.NURSE ---
[address] Solitario face to face that pt is not tolerating ivf bolus at this time. pt has currently had . pt lung sounds were reassessed and have worsened on the left. left lung campbell contain fine crackles throughout (change from rhonchi and scattered crackles from am assessment.) right lung field is diminished with scattered wheezes. (less wheezes noted than this am). pt o2 has been titrated throughout the shift. o2 was increased to 5lpm r/t sats of 82-86%.
--- NOTE | 2023-04-20 10:51 | PC.NURSE ---
o2 NOTED AT 84-86% ON 6L NC. PT PLACED ON 35% VENTI MASK NOTED AT 88%. PT CURRENTLY ON 40% VENTI MASK AT 91%. WILL CONTINUE TO MONITOR.
[2023-04-20 10:54] LABS: INR 1.45 (0.9-1.1); Prothrombin Time 15.3 seconds (10.1-12.5)
[2023-04-20 11:27] LABS: POC Glucose,Bedside 124 (70-110)
--- NOTE | 2023-04-20 11:31 | PC.NURSE ---
Addendum entered by Marcela Martínez RN 04/20/23 13:42: 1340 pt levophed decreased to 20mcg/min r/t bp 114/82 (92) Original Note: at start of shift pt Levophed drip infusing at 18mcg/min. 1005 pt levophed drip increased to 20mcg/min r/t bp 80/46 (57) 1015 new parameters received from Dr Solitario. titrate drips for SBP in 's 1130 levophed drip increased to 22mcg/min r/t bp 82/37 and 89/63 (Vasopressin drip also started at this time.)
--- NOTE | 2023-04-20 11:43 | PC.NURSE ---
notified Dr Solitario of pt's heart rate in the 120s, BP 89/63, 0.01 on vasopressin, and 22 on levo. No new orders.
--- NOTE | 2023-04-20 11:51 | PC.NURSE ---
Addendum entered by Marcela Martínez RN 04/20/23 18:22: 1440 pt placed on vapotherm 30L/70% by RT Addendum entered by Marcela Martínez RN 04/20/23 14:06: 1400 pt o2 sats noted to be low to mid 80's. o2 increased to 50% on venti mask Original Note: 1030 pt currently on 6lpm/nc, sats in the low 80's. pt placed on venti mask at 35% 1045 pt o2 sats in the 88-89 range. venti mask increased to 40%.
[2023-04-20 14:05] LABS: ABG Base Excess -4.6 mmol/L (-2.4-2.3); ABG HCO3 21.6 mmhg (22.0-26.0); ABG Oxygen Saturation 67 % (90-100); ABG PCO2 43.7 mmhg (35.0-45.0); ABG PH 7.31 mmol/L (7.35-7.45); ABG TCO2 22.9 mmhg (23-27)
--- NOTE | 2023-04-20 14:31 | EXP.ACUTE.PN ---
Subjective *Date: 04/20/23 *Time: 14:31 Interval history: Interactive on exam. Afebrile at this time. Remains tachycardic. Blood pressure necessitating increase in Levophed on rounds. Remains tachycardic with heart rate 100-120. Ate breakfast this morning. No chest pain, appears dyspneic. Medical Exam Vital signs and Labs for Last 24 Hours: Vital Signs Temp Pulse Pulse Resp BP Pulse Ox FiO2 04/20/23 12:00 120 H 04/20/23 08:00 110 H 04/20/23 12:21 128 H 20 113/80 85 L 40 04/20/23 12:00 120 H 20 105/76 L 92 L 40 04/20/23 11:45 121 H 20 99/67 L 94 L 40 04/20/23 11:17 119 H 20 82/37 L 91 L 40 04/20/23 11:00 117 H 18 82/46 L 89 L 40 04/20/23 10:45 117 H 20 97/59 L 88 L 35 04/20/23 10:30 116 H 20 91/35 L 84 L 04/20/23 10:12 114 H 20 98/55 L 80 L 04/20/23 10:03 115 H 18 80/46 L 84 L 04/20/23 10:00 113 H 20 76/50 L 93 L 04/20/23 09:47 117 H 20 75/42 L 92 L 04/20/23 09:00 106 H 18 80/48 L 94 L 04/20/23 08:20 105 H 16 81/61 L 96 04/20/23 08:15 104 H 16 74/23 L 94 L 04/20/23 11:08 97.8 F 04/20/23 10:12 114 H 20 98/55 L 92 L 04/20/23 09:29 109 H 04/20/23 09:29 110 H 04/20/23 09:29 93 L 04/20/23 07:45 102 H 93 L 04/20/23 08:00 99.1 F 106 H 16 86/60 L 94 L 04/20/23 07:34 97.9 F 04/20/23 06:23 105 H 04/20/23 06:23 105 H 04/20/23 06:23 100 04/20/23 04:00 110 H 04/20/23 04:00 97.7 F 115 H 17 98/57 L 96 04/20/23 00:00 120 H 04/19/23 23:58 97.8 F 120 H 121/78 97 04/19/23 23:57 97 04/19/23 20:00 99.2 F 122 H 89/62 L 92 L 04/19/23 20:00 120 H 04/19/23 19:40 121 H 04/19/23 19:40 124 H 04/19/23 19:40 93 L 04/19/23 18:45 112 H 19 73/50 L 96 04/19/23 18:30 106 H 21 77/47 L 92 L 04/19/23 18:00 170 H 21 96/48 L 90 L 04/19/23 16:00 140 H 04/19/23 17:15 135 H 20 102/54 L 90 L 04/19/23 17:00 131 H 20 91/51 L 91 L 04/19/23 16:30 131 H 19 101/46 L 93 L 04/19/23 16:00 136 H 22 87/51 L 90 L 04/19/23 15:30 134 H 21 95/53 L 92 L 04/19/23 15:00 137 H 21 93/64 L 92 L 04/19/23 16:02 99.3 F Intake and Output 04/19/23 04/20/23 04/20/23 23:59 07:59 15:59 Intake Total 1060.487 / 4063.275 840 / 942 102 / 942 Output Total 0 / 0 0 / 0 0 / 0 Balance 1060.487 / 4063.275 840 / 942 102 / 942 Intake: Intake, Oral Amount 450 / 810 582 / 582 0 / 582 Intake, Total IV Amount 610.487 / 3253.275 258 / 360 102 / 360 Calcium Gluconate 2,000 mg In 0 100 / 200 .9 % Sodium Chloride 100 ml @ 60 mls/hr IV ONCE ONE Rx#: [id number] Ceftriaxone Sodium 2 gm In 0.9 100 / 100 102 / 102 % Sodium Chloride 100 ml @ 200 mls/hr IV Q24H [facility] Rx#:[id number] Magnesium Sulfate in Water 2 gm 50 / 50 In 50 ml @ 50 mls/hr IV ONCE ONE Rx#:[id number] Norepinephrine Bitartrate 8 mg 161 / 161 In Dextrose 5 % in Water 250 ml @ 2 MCG/MIN 3.87 mls/hr IV . Q24H [facility] Rx#:[id number] Output: Output, Urine Amount 0 / 0 0 / 0 0 / 0 Other: Number of Unmeasured Voids 1 1 1 Number of Bowel Movements 1 Weight 77.111 kg Patient Weight 04/20/23 23:59 Weight 77.111 kg Laboratory Results - last 24 hr 04/19/23 14:05: Sodium 136, Potassium 3.1 L, Chloride 99, Carbon Dioxide 22, Anion Gap 18.1 H, BUN 21 H, Creatinine 1.20 H, Estimated Creat Clear 58, Estimated GFR 46 L, Est GFR ( Amer) 55 L, Glucose 80 D, Calcium 7.6 L, Magnesium 1.8 D, Total Bilirubin 9.2 H, AST 223 H, ALT 52, Alkaline Phosphatase 168 H, Total Protein 5.6 L, Albumin 2.7 L, Globulin 2.9, Albumin/Globulin Ratio 0.9 L 04/19/23 16:58: POC Glucose 100 04/19/23 21:12: POC Glucose 228 H 04/20/23 05:18: POC Glucose 133 H 04/20/23 07:10: WBC 6.4 D, RBC
[2023-04-20 14:41] LABS: Allen's Test Acceptable; Oxygen 40% %
[2023-04-20 14:42] LABS: ABG PO2 36.1 mmhg (80-100); Source Left Brachial
[2023-04-20 17:01] LABS: POC Glucose,Bedside 150 (70-110)
[2023-04-20 17:42] LABS: Peripheral Smear Review Scanned Result
[2023-04-20 18:13] LABS: Chloride 97 mmol/L (98-107)
[2023-04-20 18:14] LABS: Potassium 3.7 mmoL/L (3.5-5.1); Sodium 134 mmol/L (136-145)
--- NOTE | 2023-04-20 18:14 | PC.NURSE ---
PT IS ALERT TO SELF AT THIS TIME. PT IS UNABLE TO TELL STAFF WHERE SHE IS OR THE YEAR AT THIS TIME. INCREASED CONFUSION THROUGHOUT SHIFT. PT TOLERATING 30L 70% ON VAPOTHERM AT THIS TIME. RESPIRATIONS REGULAR AND UNLABORED. RIGHT LOWER LOBE DIMINISHED BREATH SOUNDS. CRACKLES NOTED THROUGHOUT. RHONCHI NOTED THROUGHOUT. OCCASIONAL DRY COUGH NOTED. HAND ASSISTANT PRESS OPERATOR EQUAL. +1 PULSES NOTED THROUGHOUT. +2 PITTING EDEMA NOTED TO BLE. ACTIVE BOWEL SOUNDS HEARD IN ALL 4 QUADRANTS. SOFT AND NONTENDER. NO BM THUS FAR. VOIDS PER PURWICK WITH CLEAR DARK YELLOW TO YELLOW URINE NOTED IN CANNISTER. BED ALARM IN PLACE. SEIZURE PRECAUTIONS IN PLACE. PT CURRENTLY ON 20MCG/MIN OF LEVO AND VASOPRESSION 0.01UNITS/MIN TOLERATING WELL. SBP ABOVE [address] SUAREZ'S ORDERS. FAMILY HAS BEEN AT BEDSIDE THIS AFTERNOON. FAMILY STATES PATIENT HAS SEEN DOGS THIS AFTERNOON. MITTENS IN PLACE FOR PROTECTION OF PATIENT AND DUE TO PT TRYING TO PULL OUT IV AND PULL OFF VAPOTHERM. CIWA COMPLETED NEEDED. CALL LIGHT WITHIN REACH. BED IN LOWEST POSITION.
[2023-04-20 18:16] LABS: Alanine Aminotransferase 60 U/L (12-78); Ammonia 37 umol/L (9-30); Aspartate Amino Transferase 184 U/L (14-36); Blood Urea Nitrogen 23 mg/dl (7-17); Creatinine Clearance Estimated 72 mL/min (50-200); Estimated Glomerular Filt Rate 73 ml/min (>60); GFR (African American) 88 ML/MIN (>60)
[2023-04-20 18:17] LABS: Albumin Level 2.8 g/dl (3.5-5.0); Albumin/Globulin Ratio 0.9 (1.1-1.8); Alkaline Phosphatase 213 U/L (38-126); Anion Gap 16.7 mEq/L (5-15); Bilirubin,Total 12.6 mg/dl (0.2-1.3); Calcium 7.9 mg/dl (8.4-10.2); Carbon Dioxide 24 mmol/L (22.0-30.0); Globulin 3.2 g/dL (1.3-3.2); Glucose 154 mg/dl (74-100); Magnesium 1.6 mg/dl (1.6-2.3)
--- NOTE | 2023-04-20 18:19 | PC.NURSE ---
Late entry: [address] Solitario face to face that pt is having periods of ectopy and runs of v tach. no new orders.
--- NOTE | 2023-04-20 18:59 | PC.NURSE ---
All drip titrations and critical care of patient provided by Stefani Velasquez RN was provided under my direct supervision.
--- NOTE | 2023-04-20 19:43 | PC.NURSE ---
Notified Omid ENGINEERING JOB TITLES that pt was continuing to have 2-3 beat runs of vtach and HR was maintaining 140s-150. Pt had also went in to SVT for about 10 seconds but was now back in sinus tach. Omid states to give 5mg Metoprolol IVP now.
[2023-04-20 20:26] LABS: Adenovirus F 40/41, stool Not Detected (NotDetected); Astrovirus Not Detected (NotDetected); Cryptosporidium Not Detected (NotDetected); Cyclospora Cayetanesis Not Detected (NotDetected); Entamoeba histolytica Not Detected (NotDetected); Enteroaggregative E coli Not Detected (NotDetected); Enteropathogenic E coli Not Detected (NotDetected); Enterotoxigenic E coli Not Detected (NotDetected); Giardia lamblia Not Detected (NotDetected); Norovirus Not Detected (NotDetected); Plesimonas Shigalloides, PCR Not Detected (NotDetected); Rotavirus A Not Detected (NotDetected); Salmonella, PCR Not Detected (NotDetected); Sapovirus Not Detected (NotDetected); Shiga-like toxin E coli Not Detected (NotDetected); Shigella Enterovasive E coli Not Detected (NotDetected); Vibrio Cholerae Not Detected (NotDetected); Vibrio, PCR Not Detected (NotDetected); Yersinia Entercolitica, PCR Not Detected (NotDetected)
--- NOTE | 2023-04-20 20:55 | PC.NURSE ---
Levo gtt titrated down to 18mcg/min at this time.
--- NOTE | 2023-04-20 21:05 | PC.NURSE ---
Levo down to 16mcg/min at this time.
[2023-04-20 21:42] LABS: POC Glucose,Bedside 176 (70-110)
--- NOTE | 2023-04-20 21:44 | PC.NURSE ---
Levo up to 18mcg/min at this time.
[2023-04-20 22:24] LABS: Campylobacter Detected (NotDetected); Clostridium Difficile A/B, PCR Detected (NotDetected)
[2023-04-21] VITALS (36 sets, daily range): BP systolic 76–131; BP diastolic 43–97; PULSE 94–153; RESP 14–25; TEMP 36.6–36.8; O2SAT 90–100; BMI 24.6
--- NOTE | 2023-04-21 01:02 | PC.NURSE ---
Levo gtt down to 16 mcg/min at this time.
--- NOTE | 2023-04-21 03:12 | PC.NURSE ---
levo down to 14mcg/min at this time.
--- NOTE | 2023-04-21 03:32 | PC.NURSE ---
Vasopressin gtt put on standby at this time.
--- NOTE | 2023-04-21 04:05 | PC.NURSE ---
Levo gtt down to 12mcg/min at this time.
--- NOTE | 2023-04-21 04:37 | PC.NURSE ---
Levo down to 10mcg/min at this time.
--- NOTE | 2023-04-21 05:04 | PC.NURSE ---
levo up to 12mcg/min at this time
[2023-04-21 05:52] LABS: POC Glucose,Bedside 131 (70-110)
[2023-04-21 05:58] LABS: Basophils # 0.1 K/mm3 (0-0.2); Basophils % 0.5 % (0.1-2.0); Eosinophils % 0.1 % (0.1-12.0); Hematocrit 39.2 % (37.0-47.0); Hemoglobin 12.2 g/dL (12.2-16.2); Lymphocytes # 1.4 K/mm3 (0.7-4.5); Lymphocytes % 11.8 % (10-50); Mean Corpuscular Hemoglobin 39.9 pg (27.0-31.2); Mean Corpuscular Volume 128.7 fl (81-99); Mean Platelet Volume 10.6 fl (7.4-10.4); Monocytes # 0.6 K/mm3 (0.1-1.0); Monocytes % 5.2 % (1.7-9.3); Neutrophils # 9.8 K/mm3 (1.8-7.8); Neutrophils % 82.3 % (37.0-80.0); Platelet Count 72 K/mm3 (142-424); Red Blood Count 3.05 M/mm3 (4.20-5.40); Red Cell Distribution Width 15.9 % (11.5-17.5); White Blood Count 11.8 K/mm3 (4.8-10.8)
[2023-04-21 06:08] LABS: Alanine Aminotransferase 68 U/L (12-78); Albumin Level 2.7 g/dl (3.5-5.0); Albumin/Globulin Ratio 0.9 (1.1-1.8); Alkaline Phosphatase 207 U/L (38-126); Anion Gap 19.8 mEq/L (5-15); Aspartate Amino Transferase 221 U/L (14-36); Bilirubin,Total 12.9 mg/dl (0.2-1.3); Blood Urea Nitrogen 23 mg/dl (7-17); Calcium 7.7 mg/dl (8.4-10.2); Carbon Dioxide 23 mmol/L (22.0-30.0); Chloride 97 mmol/L (98-107); Creatinine Clearance Estimated 73 mL/min (50-200); Estimated Glomerular Filt Rate 73 ml/min (>60); GFR (African American) 88 ML/MIN (>60); Globulin 3.1 g/dL (1.3-3.2); Glucose 113 mg/dl (74-100); Potassium 3.8 mmoL/L (3.5-5.1); Sodium 136 mmol/L (136-145); Total Protein,Serum 5.8 g/dl (6.3-8.2)
--- NOTE | 2023-04-21 06:08 | PC.NURSE ---
Levo down to 10mcg/min
[2023-04-21 06:28] LABS: Magnesium 1.8 mg/dl (1.6-2.3)
--- NOTE | 2023-04-21 06:43 | PC.NURSE ---
Levophed gtt continues at 10mcg/min, Vasopressin gtt remains on standby. RT titrated vapotherm down to 30L/60%, pt tolerating well with sats in mid 90s. Pt is alert to person only and has been very restless t/o shift, pulling at lines and cords. Pt has had multiple incontinent BMs this shift. UO unable to be measured due to pt continuously moving purewick. Pt CIWA score has been 11-15 t/o shift, pt admits to having visual hallucinations, and is visually having tremors. Pt has received 2x doses of 5mg Metoprolol IVP PRN due to HR 140-150 w/ dysrhythmia. Pt HR currently maintaining 110-125, sinus tach with occ. PAC. Bed alarm on and seizure pads in place for pt safety. Call light within reach.
--- NOTE | 2023-04-21 07:21 | PC.NURSE ---
bp 106/86 (92), decreased pt's levophed drip to 8mcg/min
--- NOTE | 2023-04-21 08:36 | PC.NURSE ---
0800-bp 76/54, increased levophed drip to 10mcg/min 0805-MD Solitario at bedside and instructed this RN to restart vasopressin at 0.01units/hr and try and get levophed off first instead of going up on the levophed for hypotension; bp 78/47, vasopressin drip restarted at 0.01units/hr and levophed continued at 10mcg/min 0815-bp 94/56 (68), decreased levophed drip to 8mcg/min 0830-bp 100/77 (84), decreased levophed drip to 6mcg/min
--- NOTE | 2023-04-21 08:39 | PC.NURSE ---
MD Solitario requested a prn neb to be given due to pt wheezing, Deepika RT came and gave pt treatment
--- NOTE | 2023-04-21 08:45 | PC.NURSE ---
spoke with pt's daughter via telephone, consented to having midline placed today and consent placed in chart
--- NOTE | 2023-04-21 09:09 | PC.NURSE ---
bp 100/68 (78), decreased levophed drip to 4mcg/min
--- NOTE | 2023-04-21 09:47 | HMH.OTEV ---
OT Inpatient Evaluation Rehab OT IP Evaluation Start: 04/19/23 07:49 Freq: ONCE Status: Active Protocol: Document 04/21/23 09:33 BARBARAVIENNA (Rec: 04/21/23 09:46 [facility] [id number]) Rehab OT IP Assessment Subjective History Pt oriented x 2 on arrival. Pt agreeable to engage in therapy evaluation. Pt does demonstrate confusion about place orientation. Pt is a 62yo female with history of coronary artery bypass surgery , cirrhosis, alcoholism, tobacco use disorder, COPD. Pt admitted for dehydration, diarrhea, hypoglycemia, and hypokalemia. Prior to being in the hosptial, pt lived with her daughter and granddaughter. Pt reports normally her granddaughter has to provide assistance with ADLs such as dressing and bathing. She is dependent upon family for completion of all IADLs. She explains she normally does not transfer well and requires assistance and a rolling walker. Subjective I don't understand where I am at. Objective Patient Orientation Person,Birthday Upper Extremity Gross ROM WFL Bed Mobility bed mobility-scooting,bed mobility - supine/sit,bed mobility - rolling Assist Level Maximum x 2 (75% assist) Rehab OT IP prob,goals,plan Problems Date of Evaluation: 04/21/23 OT IP Problems Bed Mobility,Transfers,Balance ,Self care,Safety Rehab Potential Rehab Potential Good Equipment Needs Assistive Devices Rolling / Wheeled Walker, Wheelchair Plan OT intervention Plan Bed Mobility,Transfers,Balance ,Self care,Safety,Therapeutic Exercise OT Plan Frequency BID Duration LOS Discharge Goals Bed Mobility Ability Assistance x1 Sit to Stand Chair Transfer Ability Moderate x 1 (50% assist) Chair Transfer Ability Moderate x 1 (50% assist) Chair Transfer Technique Stand Step Pivot Chair Transfer Assistive D
--- NOTE | 2023-04-21 09:49 | EXP.ACUTE.PN ---
Subjective *Date: 04/21/23 *Time: 11:48 Interval history: Blood pressure somewhat better overnight. Able to wean down on Levophed. Temporarily weaned off of vasopressin. Blood pressures softer this morning on rounds. Resume vasopressin. Stool sample came back positive last night for C. difficile. Initiated on vancomycin. Tolerating Vapotherm. Awake and alert on exam this morning, oriented only to self. Disoriented with time and place. Afebrile. No nausea or vomiting. Medical Exam Vital signs and Labs for Last 24 Hours: Vital Signs Temp Pulse Pulse Resp BP Pulse Ox FiO2 04/21/23 09:25 113 H 04/21/23 09:25 109 H 04/21/23 08:24 119 H 04/21/23 08:24 117 H 04/21/23 08:56 60 04/21/23 07:50 110 H 93 L 04/21/23 09:00 112 H 19 100/68 L 92 L 60 04/21/23 08:00 117 H 22 76/54 L 99 60 04/21/23 07:19 98.0 F 04/21/23 07:00 116 H 23 106/86 L 98 60 04/21/23 06:08 120 H 04/21/23 06:08 118 H 04/21/23 06:08 97 70 04/21/23 06:00 117 H 21 111/74 98 70 04/21/23 05:15 108/71 L 04/21/23 05:00 118 H 18 83/48 L 96 70 04/21/23 04:00 97.8 F 04/21/23 04:37 120/76 04/21/23 04:00 110 H 04/21/23 04:00 121 H 95 70 04/21/23 04:00 121 H 18 118/71 96 70 04/21/23 03:00 127 H 25 H 118/64 94 L 70 04/21/23 02:00 124 H 19 107/87 L 92 L 70 04/21/23 01:20 153 H 04/21/23 01:30 130 H 04/21/23 01:00 136 H 23 130/97 H 95 70 04/20/23 23:58 97.8 F 04/21/23 00:00 131 H 21 105/68 L 93 L 70 04/21/23 00:00 96 70 04/21/23 00:00 94 L 70 04/20/23 22:00 134 H 26 H 90/61 L 94 L 70 04/20/23 21:44 75/57 L 04/20/23 21:00 128 H 27 H 145/58 H 94 L 70 04/20/23 20:45 128 H 114/59 L 04/20/23 20:00 124 H 29 H 103/87 L 95 70 04/20/23 20:00 120 H 04/20/23 20:00 97.6 F 04/20/23 20:00 127 H 27 H 118/89 90 L 70 04/20/23 20:00 121 H 93 L 70 04/20/23 19:01 136 H 04/20/23 19:01 135 H 04/20/23 19:01 97 70 04/20/23 18:45 122 H 102/54 L 97 04/20/23 18:15 138 H 89/69 L 98 04/20/23 18:00 132 H 94/48 L 99 04/20/23 17:08 134 H 94/69 L 97 04/20/23 17:30 131 H 89/68 L 95 04/20/23 16:00 120 H 04/20/23 16:19 129 H 04/20/23 16:19 130 H 04/20/23 16:30 131 H 18 99/74 L 97 04/20/23 16:10 97 70 04/20/23 16:00 127 H 18 118/91 H 98 04/20/23 15:30 130 H 20 116/69 94 L 04/20/23 13:30 128 H 114/82 88 L 04/20/23 13:04 126 H 99/56 L 89 L 04/20/23 14:30 125 H 96/71 L 92 L 04/20/23 14:00 126 H 92/60 L 88 L 04/20/23 14:39 125 H 18 04/20/23 14:39 125 H 04/20/23 14:39 125 H 04/20/23 14:39 97 70 04/20/23 15:13 97.7 F 04/20/23 12:00 120 H 04/20/23 12:21 128 H 20 113/80 85 L 40 04/20/23 12:00 120 H 20 105/76 L 92 L 40 04/20/23 11:45 121 H 20 99/67 L 94 L 40 04/20/23 11:17 119 H 20 82/37 L 91 L 40 04/20/23 11:00 117 H 18 82/46 L 89 L 40 04/20/23 10:45 117 H 20 97/59 L 88 L 35 04/20/23 10:30 116 H 20 91/35 L 84 L 04/20/23 10:12 114 H 20 98/55 L 80 L 04/20/23 10:03 115 H 18 80/46 L 84 L 04/20/23 10:00 113 H 20 76/50 L 93 L 04/20/23 11:08 97.8 F 04/20/23 10:12 114 H 20 98/55 L 92 L Intake and Output 04/20/23 04/21/23 04/21/23 23:59 07:59 15:59 Intake Total 1386.2 / 2468.2 832 / 832 Output Total 2075 / 2075 125 / 125 Balance -688.8 / 393.2 707 / 707 Intake: Intake, Oral Amount 0 / 582 60 / 60 Intake, Total IV Amount 1386.2 / 1886.2 772 / 772 Cefepime HCl 2 gm In 0.9 % 200 / 200 Sodium Chloride 100 ml @ 200 mls/hr IV Q8H [facility] Rx#:[id number] Magnesium Sulfate in Water 2 gm 40 / 40
--- NOTE | 2023-04-21 09:50 | PC.NURSE ---
0945-pt sleeping, bp 74/51 (58), continued levophed at 4mcg/min and increased vasopressin drip to 0.02units/hr
--- NOTE | 2023-04-21 10:20 | HMH.PTEV ---
Physical Therapy Evaluation Rehab PT IP Evaluation Start: 04/19/23 07:49 Freq: ONCE Status: Active Protocol: Document 04/21/23 10:03 HAIDER (Rec: 04/21/23 10:19 HAIDER [id number]) Subjective/History History History Pt is a 62 y/o female who presented to [facility] ER on 04/18/23 with complaint of 3-4 days of nausea, diarrhea, weakness and poor po intake. Pt admitted for dehydration, diarrhea, hypoglycemia, and hypokalemia. Pt is positive for C. difficile. Medical History: coronary artery bypass surgery, cirrhosis, alcoholism, tobacco use disorder, COPD, Hx of completed stroke, seizure disorder Subjective Subjective Pt oriented to name and birthday only on initial evaluation, pt confused of place and situation and is a poor historian. Per pt report, she lived at home with her daughter and granddaughter. Pt states her granddaughter helps her with ADLs and IADLs. Pt reports she does not walk or transfer well and uses a RW for this. During bed mobility, pt's oxygen fluctuated from 82-99% on Vapotherm and asked for an dominga tray verbalizing she thought she was smoking a cigarette. Pt held her breath throughout the treatment and required verbal cues for PLB and to leave oxygen in her nose. Rehab PT IP Eval Objective Appearance Patient Behavior Cooperative,Restless,Confused Patient Orientation Name,Birthday Difficulty following instructions mild Speech Pattern Mumbled Balance Sitting Balance Leans or slides in chair Dynamic Sitting Balance Ability Fair Transfers Bed Transfer Ability Maximum x 2 (75% assist) Rehab PT IP prob,goals,plan Problems Date of Evaluation: 04/21/23 PT IP Problems Bed Mobility,Transfers,Gait, Bal
[2023-04-21 10:54] LABS: POC Glucose,Bedside 113 (70-110)
--- NOTE | 2023-04-21 10:55 | PC.NURSE ---
1043-bp107/68 (81), decreased levophed drip to 2mcg/min
--- NOTE | 2023-04-21 12:39 | US_ITS ---
FINAL REPORT CLINICAL HISTORY: eval portal flow for thrombus. increased abd pain FINDINGS: Limited sonographic images of the abdomen were obtained. Exam is limited secondary to lack of patient cooperation. The pancreas is partially obscured. The portal vein measures 12 mm, within normal limits. Little flow is demonstrated to the portal vein, portal thrombus is not excluded. There is a coarsened hepatic echotexture, cirrhosis is not excluded. No gallstones are identified. The common duct is normal measuring 2 mm. Limited images of the right kidney are unremarkable. IMPRESSION: Poor flow to the portal vein, partial thrombus is not excluded. If indicated, liver mass protocol CT may be helpful. Coarsened hepatic echotexture, cirrhosis is not excluded. Reviewed, Interpreted and Dictated by Kristian Petersen III, MD Transcribed by Yamileth Goyal Authenticated and [facility]
--- NOTE | 2023-04-21 14:00 | PC.NURSE ---
bp 111/69, held levophed drip at this time
--- NOTE | 2023-04-21 14:44 | CT_ITS ---
FINAL REPORT TECHNIQUE: Then section axial CT images of the chest were obtained with contrast. Three-D reformatted images were also obtained.This study was performed with techniques to keep radiation doses as low as reasonably achievable (ALARA). Individualized dose reduction techniques using automated exposure control or adjustment of mA and/or kV according to the patient''s size were employed. CLINICAL HISTORY: shortness of breath COMPARISON: None FINDINGS: There is no evidence of pulmonary embolism. There is no evidence of thoracic aortic aneurysm or dissection. There is no evidence of mediastinal or hilar mass or adenopathy. Cardiomegaly. There is evidence of prior median sternotomy. There is no evidence of pulmonary mass or suspicious nodule. Bilateral lower lobe atelectasis. Small pleural effusions. There are bilateral pulmonary groundglass opacities worrisome for bilateral pneumonia. Limited images of the upper abdomen demonstrate fatty infiltration of the liver. Anasarca is noted. There is gallbladder wall thickening which is nonspecific. IMPRESSION: No evidence of pulmonary embolism. Bilateral pulmonary groundglass opacities worrisome for bilateral pneumonia. Fatty liver. Anasarca. Nonspecific gallbladder wall thickening. Reviewed, Interpreted and Dictated by Kristian Petersen III, MD Transcribed by Vidya Phillips Authenticated and [facility]
--- NOTE | 2023-04-21 15:39 | PC.NURSE ---
pt went to ct scan and back to floor
--- NOTE | 2023-04-21 16:30 | PC.NURSE ---
Midline to left upper arm inserted successfully, positive blood return, sterile dressing applied, bleeding noted to insertion site, notified Sara MEJIA of bleeding to site.
[2023-04-21 16:41] LABS: POC Glucose,Bedside 107 (70-110)
--- NOTE | 2023-04-21 16:50 | PC.NURSE ---
laborer livestock ROBERTO aSnchez placed LUE midline per order from MD Solitario
--- NOTE | 2023-04-21 18:11 | PC.NURSE ---
spoke with [facility] and RX instructed this RN to give 5000unit heparin bolus IV and then start heparin drip at 1200units/hr, drawing baseline aPTT now
[2023-04-21 18:23] LABS: Chloride 97 mmol/L (98-107); Sodium 137 mmol/L (136-145)
[2023-04-21 18:26] LABS: Alanine Aminotransferase 67 U/L (12-78); Albumin Level 2.4 g/dl (3.5-5.0); Albumin/Globulin Ratio 0.8 (1.1-1.8); Alkaline Phosphatase 254 U/L (38-126); Aspartate Amino Transferase 249 U/L (14-36); Bilirubin,Total 12.7 mg/dl (0.2-1.3); Blood Urea Nitrogen 25 mg/dl (7-17); Carbon Dioxide 30 mmol/L (22.0-30.0); Creatinine Clearance Estimated 73 mL/min (50-200); Estimated Glomerular Filt Rate 73 ml/min (>60); GFR (African American) 88 ML/MIN (>60); Globulin 2.9 g/dL (1.3-3.2); Total Protein,Serum 5.3 g/dl (6.3-8.2)
[2023-04-21 18:27] LABS: Calcium 7.5 mg/dl (8.4-10.2); Glucose 102 mg/dl (74-100)
[2023-04-21 18:29] LABS: Anion Gap 12.9 mEq/L (5-15); Potassium 2.9 mmoL/L (3.5-5.1)
--- NOTE | 2023-04-21 18:38 | PC.NURSE ---
notified MD Solitario of pt's critical potassium of 2.9, to order IV potassium replacement
[2023-04-21 18:46] LABS: Magnesium 1.6 mg/dl (1.6-2.3)
[2023-04-21 18:57] LABS: PTT Heparin (inpatient only) 30.4 Seconds (23.6-34.0)
[2023-04-21 22:27] LABS: PTT Heparin (inpatient only) > 200.0 Seconds (23.6-34.0)
--- NOTE | 2023-04-21 23:21 | PC.NURSE ---
0785 THIS PT'S BP IS 78/50, VASO GTT INCREASED FROM 0.02U/MIN TO 0.03U/MIN (3ML/HR TO 4.5ML/HR)
--- NOTE | 2023-04-21 23:22 | PC.NURSE ---
214: THIS RN CONTACTED HOSPITALIST INFORMATION TECHNOLOGY COORDINATOR D/T PT'S MIDLINE DRESSING BEING SATURATED IN BLOOD. 2156 INFORMATION TECHNOLOGY COORDINATOR AT BEDSIDE TO ASSESS DRESSING AND BLEEDING; NEW VERBAL ORDERS TO CHANGE DRESSING AND APPLY A PRESSURE DRESSING IF BLEEDING CONTINUES AND TO WATCH SITE FOR INCREASED BLEEDING.
[2023-04-22] VITALS (34 sets, daily range): BP systolic 72–115; BP diastolic 43–89; PULSE 80–111; RESP 9–25; TEMP 35.3–37.1; O2SAT 89–100; BMI 24.0
--- NOTE | 2023-04-22 00:55 | PC.NURSE ---
2356: THIS RN CALLED RT TO BEDSIDE TO ASSESS THIS PT D/T PT NOT MAINTAINING O2 SATS ON CURRENT O2 SETTINGS; RT INCREASED PT'S SETTINGS ON VAPOTHERM FROM 30LPM TO 40LPM AND 60% FIO2 TO 100% FIO2. PT IS MAINTAINING O2 SATS AT THIS TIME WITH SETTING CHANGES.
[2023-04-22 01:11] LABS: POC Glucose,Bedside 132 (70-110)
[2023-04-22 01:41] LABS: PTT Heparin (inpatient only) > 200.0 Seconds (23.6-34.0)
--- NOTE | 2023-04-22 01:57 | PC.NURSE ---
Addendum entered by Georgia Silveira RN 04/22/23 02:01: UPDATE: SEE PHARMACY ORDERS ON PT'S MAR AND ORDERS Original Note: 04/21/23 @ 3771 [facility] CALLED TO NOTIFY THIS RN THAT THIS PT'S PTT WAS >200. TELEPHONE ORDERS GIVEN TO DECREASE HEPARIN GTT TO 1000 U/HR (20ML/HR) AND TO RECHECK PTT IN 2 HOURS AT 0100. 04/22/23 @ 0140 [facility] CALLED TO NOTIFY THIS RN THAT THIS PT'S PTT WAS >200. TELEPHONE ORDERS GIVEN TO DECREASE HEPARIN GTT TO 800 U/HR (16ML/HR) AND TO RECHECK PTT IN 6 HOURS.
[2023-04-22 05:26] LABS: Basophils # 0.1 K/mm3 (0-0.2); Basophils % 0.3 % (0.1-2.0); Eosinophils % 0.1 % (0.1-12.0); Hematocrit 39.3 % (37.0-47.0); Hemoglobin 12.1 g/dL (12.2-16.2); Lymphocytes # 1.9 K/mm3 (0.7-4.5); Lymphocytes % 10.8 % (10-50); Mean Corpuscular HGB Conc 30.9 g/dL (31.8-35.4); Mean Corpuscular Volume 130.4 fl (81-99); Monocytes # 0.8 K/mm3 (0.1-1.0); Monocytes % 4.5 % (1.7-9.3); Neutrophils % 84.3 % (37.0-80.0); Platelet Count 59 K/mm3 (142-424); Red Blood Count 3.01 M/mm3 (4.20-5.40); Red Cell Distribution Width 15.7 % (11.5-17.5); White Blood Count 17.8 K/mm3 (4.8-10.8)
[2023-04-22 05:56] LABS: Alanine Aminotransferase 80 U/L (12-78); Albumin Level 2.8 g/dl (3.5-5.0); Albumin/Globulin Ratio 0.9 (1.1-1.8); Alkaline Phosphatase 231 U/L (38-126); Anion Gap 13.4 mEq/L (5-15); Aspartate Amino Transferase 289 U/L (14-36); Bilirubin,Total 13.8 mg/dl (0.2-1.3); Blood Urea Nitrogen 29 mg/dl (7-17); Calcium 7.5 mg/dl (8.4-10.2); Carbon Dioxide 31 mmol/L (22.0-30.0); Chloride 99 mmol/L (98-107); Creatinine Clearance Estimated 71 mL/min (50-200); Estimated Glomerular Filt Rate 64 ml/min (>60); GFR (African American) 77 ML/MIN (>60); Globulin 3.2 g/dL (1.3-3.2); Glucose 137 mg/dl (74-100); Mean Corpuscular Hemoglobin 40.2 pg (27.0-31.2); Potassium 3.4 mmoL/L (3.5-5.1); Sodium 140 mmol/L (136-145)
[2023-04-22 05:58] LABS: MANUAL DIFFERENTIAL MANUAL DIFFERENTIAL (MANUAL DIFF)
[2023-04-22 06:04] LABS: Magnesium 2.4 mg/dl (1.6-2.3)
[2023-04-22 06:05] LABS: INR 1.33 (0.9-1.1); Prothrombin Time 14.1 seconds (10.1-12.5)
[2023-04-22 06:38] LABS: PTT Heparin (inpatient only) 129.3 Seconds (23.6-34.0)
[2023-04-22 07:01] LABS: Anisocytosis 3+; Hypochromasia 1+; Lymphocytes % 19 % (10-50); Macrocytosis 3+; Monocytes % 7 % (2-9); Neutrophils % 74 % (42-76); Ovalocytes 1+; Platelet Estimate Marked Decrease; Target Cells 1+; Total Cells Counted 100
--- NOTE | 2023-04-22 07:04 | PC.NURSE ---
DR. SUAREZ CALLED THIS RN AND GAVE A VERBAL ORDER TO TITRATE VASO FROM 0.03 TO 0.02
--- NOTE | 2023-04-22 07:59 | PC.NURSE ---
pt's temp axillary 96.5, temp rectal 95.6, placed beto hugger and warm blankets on pt
--- NOTE | 2023-04-22 08:10 | HMH.PHAHEP ---
[facility] Heparin Dosing Demographic Data Admission date:: 04/18/23 Date: 04/22/23 Time: 08:11 Allergies Allergy/AdvReac Type Severity Reaction Status Date / Time ibuprofen Allergy Verified 03/31/21 16:13 Height: 1.78 m Weight: 76.317 kg Indication Medication therapy:: Heparin Current Indications:: HIGH - PORTAL VEIN THROMBOSIS Current Active Problems (Updated 04/22/23 @ 10:39 by Juarez Rios MD) Altered mental state (Acute) Shock (Acute) Acute respiratory failure with hypoxia and hypercarbia (Acute) C. difficile diarrhea (Acute) Hyperbilirubinemia (Acute) Hypomagnesemia (Acute) Pneumonia (Acute) Septic shock (Acute) Protein calorie malnutrition (Acute) Thrombocytopenia (Acute) Macrocytosis without anemia (Acute) Hypocalcemia (Acute) Seizure disorder (Acute) Tobacco use disorder (Acute) Alcoholism (Acute) COPD (chronic obstructive pulmonary disease) (Acute) Cirrhosis (Acute) Acute dehydration (Acute) Diarrhea (Acute) Acute hypokalemia (Acute) Hypoglycemia (Acute) CVA?: No Bleeding problem?: No Kidney disease?: No DC?: No Additional History:: CIRRHOSIS, DIARRHEA, C DIFF, ALCOHOLISM, COPD Desired PTT range:: 50-75 seconds Labs Anticoagulation Lab Results:: 04/22/23 05:10 Hgb 12.1 L Hct 39.3 Plt Count 59 L Monitoring Dose Monitor 1: Date: 04/21/23 Time: 18:02 PTT Result:: 30.4 SECONDS (BASELINE) Infusion Rate:: INITIATED HEPARIN DRIP AT 1200 UNITS/HOUR = 24 ML/HOUR AND BOLUSED 5000 UNITS HEPARIN IV ONCE. WANTED LOWER STARTING RATE/BOLUS DUE TO LOW PLATELETS AND NEED FOR DRIP DUE TO THROMBOSIS. Dose Monitor 2: Date: 04/21/23 Time: 22:36 PTT Result:: > 200.0 SECONDS Infusion Rate:: DECREASE HEPARIN DRIP RATE TO 1000 UNITS/HOUR = 20 ML/HOUR Dose Monitor 3: Date: 04/22/23 Time: 01:00 PTT Result:: >200.0 SECONDS Infusion Rate:: DECREASE HEPARIN DRIP RATE TO 800 UNITS/HOUR = 16 ML/HOUR Dose Monitor 4: Date: 04/22/23 Time: 06:00 PTT Result:: 129.3 SECONDS Infusion Rate:: DECREASE HEPARIN DRIP RATE TO 600 UNITS/HOUR = 12 ML/HOUR Dose Monitor 5: Date: 04/22/23 Time: 10:00 PTT Result:: 75.7 SECONDS Infusion Rate:: CONTINUED CURRENT HEPARIN DRIP RATE OF 600 UNITS/HOUR = 12 ML/HOUR Dose Monitor 6: Date: 04/22/23 Time: 14:00 PTT Result:: 57.1 SECONDS Infusion Rate:: RATE INCREASED SLIGHTLY TO 650 UNITS/HOUR = 13 ML/HOUR Dose Monitor 7: Date: 04/22/23 Time: 18:00 PTT Result:: 53.5 SECONDS Infusion Rate:: CURRENT HEPARIN DRIP RATE CONTINUED, 650 UNITS/HOUR = 13 ML/HOUR Comment:: DRIP STOPPED PER DR SUAREZ 04/22/23 AT 19:04 Core Measures Is INR > or = 2 at discharge?: No Most Recent Labs:: Laboratory Results - last 24 hr 04/21/23 10:43: POC Glucose 113 H 04/21/23 16:34: POC Glucose 107 04/21/23 17:55: Sodium 137, Potassium 2.9 L* D, Chloride 97 L, Carbon Dioxide 30, Anion Gap 12.9, BUN 25 H, Creatinine 0.80, Estimated Creat Clear 73, Estimated GFR 73, Est GFR ( Amer) 88, Glucose 102 H, Calcium 7.5 L, Magnesium 1.6 D, Total Bilirubin 12.7 H*, AST 249 H, ALT 67, Alkaline Phosphatase 254 H, Total Protein 5.3 L, Albumin 2.4 L D, Globulin 2.9, Albumin/Globulin Ratio 0.8 L 04/21/23 18:16: APTT 30.4 04/21/23 21:25: APTT > 200.0 H* 04/22/23 01:04: POC Glucose 132 H 04/22/23 01:05: APTT > 200.0 H* 04/22/23 05:10: WBC 17.8 H D, RBC 3.01 L, Hgb 12.1 L, Hct 39.3, MCV 130.4 H, MCH 40.2 H*, MCHC 30.9 L, RDW 15.7, Plt Count 59 L, MPV 10.0, Neut % (Auto) 84.3 H, Lymph % (Auto) 10.8, Dillon % (Auto) 4.5, Eos % (Auto) 0.1, Baso % (Auto) 0.3, Neut # (Auto) 15.0 H, Lymph # (Auto) 1.9, Dillon # (Auto) 0.8, Eos # (Auto) 0.0, Baso # (Auto) 0.1, Total Counted 100, Neutrophils % (Manual) 74, Lymphocytes % (Manual) 19, Monocytes % (Manual) 7, Platelet Estimate Marked decrease, Hypochromasia 1+, Anisocytosis 3+,
--- NOTE | 2023-04-22 08:37 | DIET.NUTRFU ---
Addendum entered by Kala Singh RD, LD 04/22/23 12:29: NG tube to be placed today for medication administration. Possible TF tomorrow if medically feasible. When provider feeling appropriate to start TF pulmocare formula would best meet needs at 10ml/hr with goal rate at 50ml providing 1200ml/1800kcal/75gm protein and 958ml free water. depending on IVF, flush would need to be 150ml [id number] water providing total fluid of 1842ml/day. Original Note: Spoke to nursing this AM, she was noted to consume 0% yesterday. She was able to take pills yesterday. Unable to take pills this AM, she is not alert enough. She is on Vapotherm and had to put bear hugger in place. Prognosis is poor, family at bedside. Provider was notified regarding pills and was asked about NG tube and he would address during rounds. No IVF at this time, Labs 04/22: Na 140, K 3.4L, bilirubin 13.8H (12.7), AST 289H (249), ALT 80H (67), alk phosphate 231H (254H), Mg 2.4H. Supplements are in place if oral diet can be tolerated. If oral diet cannot be tolerated, consult family on wishes for TF for enteral nutrition. Patient has C-diff and on lactulose due to liver fxn, 5 BM noted yesterday. Will review at rounds.
--- NOTE | 2023-04-22 08:55 | CT_ITS ---
PROCEDURE INFORMATION: Exam: CT Abdomen And Pelvis With Contrast Exam date and time: 04/22/2023 4:43 PM Age: 62 years old Clinical indication: Abdominal pain; Generalized; Additional info: Possible portal vein thrombus TECHNIQUE: Imaging protocol: Computed tomography of the abdomen and pelvis with contrast. Radiation optimization: All CT scans at this facility use at least one of these dose optimization techniques: automated exposure control; mA and/or kV adjustment per patient size (includes targeted exams where dose is matched to clinical indication); or iterative reconstruction. Contrast material: ISOVUE; Contrast volume: 75 ml; Contrast route: IV; REPORTING DATA: Count of CT and Cardiac NM exams in prior 12 months: This patient has received 2 known CTs and 0 known cardiac nuclear medicine studies in the 12 months prior to the current study. COMPARISON: CT ABDOMEN W CON 01/14/2023 8:10 AM FINDINGS: Limitations: Respiratory motion artifact severely degrades images and limits sensitivity of exam. Photon starvation artifact and beam hardening artifact from overlying monitoring/supportive devices and orthopedic hardware limits visualization of surrounding structures. Pleural spaces: Bilateral pleural effusions with passive atelectasis in the lung bases. Liver: Markedly fatty liver. Gallbladder and bile ducts: Unremarkable as visualized. Pancreas: Atrophic pancreas. Spleen: Unremarkable as visualized. Adrenal glands: Unremarkable. Kidneys and ureters: Unremarkable as visualized. Stomach and bowel: Unremarkable. Appendix: No evidence of appendicitis. Intraperitoneal space: Small amount of free fluid in the pelvis measuring intermediate fluid density compatible with blood products. No pneumoperitoneum. Vasculature: Extensive calcified atherosclerotic plaque throughout the aorta. Main hepatic artery and veins are patent. Mixing artifact noted in the main portal vein that does not persist on delayed phase scan one minute later. Lymph nodes: Unremarkable. Urinary bladder: Unremarkable. Reproductive: Unremarkable. Bones/joints: Post-operative changes of prior right proximal femur fixation. Soft tissues: Supraumbilical ventral hernia containing a loop of bowel with moderate gaseous distension of a few immediately adjacent small bowel measuring up to 3.5 cm in diameter. Mild anasarca. IMPRESSION: 1. No evidence of portal vein thrombosis. 2. Supraumbilical ventral hernia containing a loop of bowel with moderate gaseous distension of a few immediately adjacent small bowel measuring up to 3.5 cm in diameter. Findings may represent incarcerated hernia with either reactive ileus vs early small bowel obstruction. 3. Small amount of free fluid in the pelvis measuring intermediate fluid density compatible with blood products. This measurement could be inaccurate due to limitations detailed above and instead represent simple ascites. Pelvic ultrasound may be able to better characterize the fluid in the pelvis. 4. Bilateral pleural effusions with passive atelectasis in the lung bases. Superimposed infection not excluded. 5. Markedly fatty liver. 6. Mild anasarca.
--- NOTE | 2023-04-22 09:10 | PC.NURSE ---
temp rectal 96.0, beto hugger continued
--- NOTE | 2023-04-22 09:33 | XR_ITS ---
FINAL REPORT CLINICAL HISTORY: Hypoxia COMPARISON: 04/20/2023 FINDINGS: A single portable view of the chest was obtained. The patient is status post median sternotomy. The heart size and pulmonary vascularity are within normal limits. Persistent bibasilar opacities are consistent with atelectasis or pneumonia. The bony thorax is intact. IMPRESSION: Persistent bibasilar opacities consistent with atelectasis or pneumonia. Reviewed, Interpreted and Dictated by Kristian Petersen III, MD Transcribed by Alyx Guerrero Authenticated and [facility]
--- NOTE | 2023-04-22 09:33 | EXP.PULM.CON ---
[facility] Disclaimer: The information contained in this section may have been updated after the patient was seen, as this information can be updated by other users. Medical History (Updated 04/22/23 @ 10:39 by Juarez Rios MD) Acute respiratory failure with hypoxia and hypercarbia Alcoholism Altered mental state Cirrhosis COPD (chronic obstructive pulmonary disease) Hx of completed stroke Seizure disorder Shock Surgical History Hx of CABG Family History Alcoholism Social History (Updated 04/18/23 @ 19:35 by Luis Felipe Solitario MD) Smoking Status: Current every day smoker tobacco type: cigarettes alcohol intake: current current occupational status: other Travel in the last 8 weeks: None Review of Systems Review of Systems Review of systems:: unable to obtain Review of systems (narrative): Patient obtunded not responding to verbal command/painful stimuli Pulmonology Exam Inpatient Vital signs and Labs for Last 24 Hours: Temp Pulse Resp BP Pulse Ox FiO2 96.0 F L 100 H 10 L 97/68 L 90 L 100 04/22/23 09:04 04/22/23 08:00 04/22/23 08:00 04/22/23 08:00 04/22/23 08:00 04/22/23 08:00 Laboratory Results - last 24 hr 04/21/23 10:43: POC Glucose 113 H 04/21/23 16:34: POC Glucose 107 04/21/23 17:55: Sodium 137, Potassium 2.9 L* D, Chloride 97 L, Carbon Dioxide 30, Anion Gap 12.9, BUN 25 H, Creatinine 0.80, Estimated Creat Clear 73, Estimated GFR 73, Est GFR ( Amer) 88, Glucose 102 H, Calcium 7.5 L, Magnesium 1.6 D, Total Bilirubin 12.7 H*, AST 249 H, ALT 67, Alkaline Phosphatase 254 H, Total Protein 5.3 L, Albumin 2.4 L D, Globulin 2.9, Albumin/Globulin Ratio 0.8 L 04/21/23 18:16: APTT 30.4 04/21/23 21:25: APTT > 200.0 H* 04/22/23 01:04: POC Glucose 132 H 04/22/23 01:05: APTT > 200.0 H* 04/22/23 05:10: WBC 17.8 H D, RBC 3.01 L, Hgb 12.1 L, Hct 39.3, MCV 130.4 H, MCH 40.2 H*, MCHC 30.9 L, RDW 15.7, Plt Count 59 L, MPV 10.0, Neut % (Auto) 84.3 H, Lymph % (Auto) 10.8, [place] % (Auto) 4.5, Eos % (Auto) 0.1, Baso % (Auto) 0.3, Neut # (Auto) 15.0 H, Lymph # (Auto) 1.9, [place] # (Auto) 0.8, Eos # (Auto) 0.0, Baso # (Auto) 0.1, Total Counted 100, Neutrophils % (Manual) 74, Lymphocytes % (Manual) 19, Monocytes % (Manual) 7, Platelet Estimate Marked decrease, Hypochromasia 1+, Anisocytosis 3+, Macrocytosis 3+, Target Cells 1+, Ovalocytes 1+, PT 14.1 H, INR 1.33 H, APTT 129.3 H*, Sodium 140, Potassium 3.4 L, Chloride 99, Carbon Dioxide 31 H, Anion Gap 13.4, BUN 29 H, Creatinine 0.90, Estimated Creat Clear 71, Estimated GFR 64, Est GFR ( Amer) 77, Glucose 137 H D, Calcium 7.5 L, Magnesium 2.4 H D, Total Bilirubin 13.8 H*, AST 289 H, ALT 80 H, Alkaline Phosphatase 231 H, Total Protein 6.0 L, Albumin 2.8 L D, Globulin 3.2, Albumin/Globulin Ratio 0.9 L I & O for Labs for Last 24 Hours: Intake & Output 04/19/23 04/20/23 04/21/23 04/22/23 23:59 23:59 23:59 23:59 Intake Total 4063.275 / 4063.275 2328.2 / 2468.2 832 / 1623 1001 / 1001 Output Total 0 / 0 2074 / 2074 132 / 1974 1000 / 1000 Balance 4063.275 / 4063.275 253.2 / 393.2 -493 / -352 Weight 165 lb 5.547 oz 170 lb 172 lb 1 oz 168 lb 4.003 oz Microbiology Reports for the Last 24 Hours: Microbiology 04/19/23 10:52 Blood Blood Culture - Preliminary Escherichia coli 04/19/23 10:52 Blood Blood Culture - Preliminary Gram Negative Rods Constitutional: Present severe distress Head: Present normocephalic and atraumatic ENT: Present normal exam and normal oropharynx Neck: Present normal inspection Respiratory: Present respiratory distress, rhonchi, crackles and diminished air movement; Absent able to speak in complete sentences Cardiac: Present S1/S2, Tachycardia and radial pulses present GI: Present soft and distention; Absent tenderness or guarding Rectal (female): Present deferred (fema
[2023-04-22 09:51] LABS: ABG Base Excess -1.8 mmol/L (-2.4-2.3); ABG HCO3 29.3 mmhg (22.0-26.0); ABG Oxygen Saturation 84 % (90-100); ABG PO2 62.9 mmhg (80-100); ABG TCO2 32.9 mmhg (23-27)
--- NOTE | 2023-04-22 10:10 | PC.NURSE ---
MD Rios ordered this RN to not take pt to CT scan at this time as pt is too unstable, had RT Diana place pt on bipap 100% and will reassess ability to go to ct after next abg result
[2023-04-22 10:14] LABS: Allen's Test Acceptable; Source Right Radial
[2023-04-22 10:15] LABS: ABG PCO2 117.9 mmhg (35.0-45.0); ABG PH 7.01 mmol/L (7.35-7.45)
--- NOTE | 2023-04-22 10:17 | HMH.ITSTN ---
was told per doctor cristhian to hold off of ct until he talks to dr. ramirez
--- NOTE | 2023-04-22 11:09 | EXP.ACUTE.PN ---
Subjective *Date: 04/22/23 *Time: 11:48 Interval history: Patient attended on morning exam. Had worsening oxygen requirement overnight. On Vapotherm 40 L 100% on morning rounds. No response to painful stimuli. Spontaneous breaths. Temperature has also decreased overnight. Rectal temperature 96 this morning. Granddaughter is at bedside. Discussed case with daughter over the phone. She is attempting compassionate release from her substance rehab facility to be at bedside. Patient's condition critical this morning. Medical Exam Vital signs and Labs for Last 24 Hours: Vital Signs Temp Pulse Pulse Resp BP Pulse Ox FiO2 04/22/23 09:00 109 H 9 L 95/67 L 89 L 100 04/22/23 09:04 96.0 F L 04/22/23 08:00 95.6 F L 100 H 10 L 97/68 L 90 L 100 04/22/23 07:00 96.5 F L 103 H 12 101/67 L 95 100 04/22/23 06:26 111 H 04/22/23 06:26 105 H 04/22/23 06:26 95 100 04/22/23 06:00 109 H 15 115/76 96 60 04/22/23 05:00 105 H 19 112/76 95 60 04/22/23 04:06 100 H 04/22/23 04:00 96.4 F L 04/22/23 00:00 110 H 04/22/23 02:00 93 H 25 H 115/43 L 92 L 100 04/22/23 04:00 103 H 04/22/23 03:00 99 H 25 H 101/69 L 96 60 04/21/23 20:00 110 H 04/22/23 00:00 97.1 F L 04/22/23 00:00 98 100 04/22/23 00:00 100 H 04/21/23 21:00 94 H 115/43 L 96 60 04/22/23 01:00 94 H 25 H 114/89 100 60 04/21/23 20:00 100 H 04/22/23 00:11 92 L 100 04/21/23 20:00 98.2 F 04/21/23 19:27 112 H 04/21/23 19:27 112 H 04/21/23 19:27 95 60 04/21/23 18:49 98 H 20 89/55 L 100 04/21/23 18:45 99 H 20 161/66 H 100 04/21/23 18:00 109 H 14 83/50 L 98 60 04/21/23 16:00 100 04/21/23 17:00 101 H 18 79/56 L 100 04/21/23 16:00 103 H 21 94/55 L 100 60 04/21/23 16:00 110 H 04/21/23 15:09 98.1 F 04/21/23 15:00 110 H 20 131/61 96 04/21/23 14:41 109 H 04/21/23 14:41 96 60 04/21/23 14:00 110 H 19 111/69 92 L 04/21/23 13:13 110 H 90 L 04/21/23 13:00 107 H 20 92/67 L 98 60 04/21/23 12:00 104 H 20 98/60 L 93 L 60 04/21/23 12:00 110 H 04/21/23 12:00 110 H 90 L 04/21/23 12:00 110 H 04/21/23 11:20 98.2 F Intake and Output 04/21/23 04/22/23 04/22/23 23:59 07:59 15:59 Intake Total 0 / 1623 1001 / 1040.959 39.959 / 1040.959 Output Total 1049 1000 / 1150 150 / 1150 Balance -1050 / -352 1 / -109.041 -110.041 / -109.041 Intake: Intake, Oral Amount 0 / 60 Intake, Other Amount 1001 / 1001 Intake, Total IV Amount 39.959 / 39.959 Output: Output, Urine Amount 1049 1000 / 1150 150 / 1150 Other: Number of Unmeasured Voids 0 0 Number of Bowel Movements 1 Weight 76.317 kg 76.317 kg Patient Weight 04/22/23 23:59 Weight 76.317 kg Laboratory Results - last 24 hr 04/21/23 16:34: POC Glucose 107 04/21/23 17:55: Sodium 137, Potassium 2.9 L* D, Chloride 97 L, Carbon Dioxide 30, Anion Gap 12.9, BUN 25 H, Creatinine 0.80, Estimated Creat Clear 73, Estimated GFR 73, Est GFR ( Amer) 88, Glucose 102 H, Calcium 7.5 L, Magnesium 1.6 D, Total Bilirubin 12.7 H*, AST 249 H, ALT 67, Alkaline Phosphatase 254 H, Total Protein 5.3 L, Albumin 2.4 L D, Globulin 2.9, Albumin/Globulin Ratio 0.8 L 04/21/23 18:16: APTT 30.4 04/21/23 21:25: APTT > 200.0 H* 04/22/23 01:04: POC Glucose 132 H 04/22/23 01:05: APTT > 200.0 H* 04/22/23 05:10: WBC 17.8 H D, RBC 3.01 L, Hgb 12.1 L, Hct 39.3, MCV 130.4 H, MCH 40.2 H*, MCHC 30.9 L, RDW 15.7, Plt Count 59 L, MPV 10.0, Neut % (Auto) 84.3 H, Lymph % (Auto) 10.8, [place] % (Auto) 4.5, Eos % (Auto) 0.1, Baso % (Auto) 0.3, Neut # (Auto) 15.0 H, Lymph # (Auto) 1.9, [place] # (Auto) 0.8, Eos # (Auto) 0.0, Baso # (Auto) 0.1, Total Counted 100, Neutrophils % (Manual) 74, Lymphocytes % (Manual) 19, Monocyte
[2023-04-22 11:13] LABS: Ammonia 20 umol/L (9-30)
[2023-04-22 11:29] LABS: ABG Base Excess -4.7 mmol/L (-2.4-2.3); ABG HCO3 23.1 mmhg (22.0-26.0); ABG Oxygen Saturation 96 % (90-100); ABG PH 7.21 mmol/L (7.35-7.45); ABG TCO2 24.9 mmhg (23-27); Oxygen 50% %; Pressure Support 16/8
[2023-04-22 11:30] LABS: ABG PCO2 58.7 mmhg (35.0-45.0); Allen's Test Acceptable; Source Right Radial
[2023-04-22 11:42] LABS: PTT Heparin (inpatient only) 75.7 Seconds (23.6-34.0); Phosphorous 4.2 mg/dl (2.5-4.5)
[2023-04-22 11:44] LABS: POC Glucose,Bedside 112 (70-110)
[2023-04-22 14:05] LABS: PTT Heparin (inpatient only) 57.1 Seconds (23.6-34.0)
--- NOTE | 2023-04-22 14:50 | PC.NURSE ---
Bong Faust notified this RN to increase pt's heparin drip to 650units/hr, this RN increased heparin drip to 650units/hr
[2023-04-22 15:36] LABS: ABG Base Excess -1.2 mmol/L (-2.4-2.3); ABG HCO3 24.8 mmhg (22.0-26.0); ABG Oxygen Saturation 99 % (90-100); ABG PCO2 48.9 mmhg (35.0-45.0); ABG PH 7.32 mmol/L (7.35-7.45); ABG PO2 137.1 mmhg (80-100); ABG TCO2 26.3 mmhg (23-27)
[2023-04-22 15:40] LABS: Allen's Test ACCEPTABLE; Oxygen 50% %; PEEP BIPAP 16/8; Source Right Radial
--- NOTE | 2023-04-22 16:46 | EXP.SEPSISRE ---
H Tissue Perfusion Eval Sepsis Re-Evaluation Performed: Yes Date Performed: 04/19/23 Time Performed: 19:00
--- NOTE | 2023-04-22 17:28 | PC.NURSE ---
attempted to place NGT without success, notified MD Solitario, no new orders at this time
[2023-04-22 17:34] LABS: POC Glucose,Bedside 124 (70-110)
[2023-04-22 18:26] LABS: Chloride 100 mmol/L (98-107); Potassium 3.4 mmoL/L (3.5-5.1); Sodium 137 mmol/L (136-145)
[2023-04-22 18:28] LABS: Blood Urea Nitrogen 35 mg/dl (7-17); Creatinine Clearance Estimated 59 mL/min (50-200); Estimated Glomerular Filt Rate 46 ml/min (>60); GFR (African American) 55 ML/MIN (>60)
[2023-04-22 18:29] LABS: Alanine Aminotransferase 66 U/L (12-78); Albumin Level 2.2 g/dl (3.5-5.0); Albumin/Globulin Ratio 0.8 (1.1-1.8); Alkaline Phosphatase 216 U/L (38-126); Anion Gap 11.4 mEq/L (5-15); Aspartate Amino Transferase 210 U/L (14-36); Bilirubin,Total 12.1 mg/dl (0.2-1.3); Carbon Dioxide 29 mmol/L (22.0-30.0); Globulin 2.9 g/dL (1.3-3.2); Total Protein,Serum 5.1 g/dl (6.3-8.2)
[2023-04-22 18:30] LABS: Calcium 7.1 mg/dl (8.4-10.2); Glucose 112 mg/dl (74-100); PTT Heparin (inpatient only) 53.5 Seconds (23.6-34.0)
--- NOTE | 2023-04-22 19:04 | PC.NURSE ---
MD Solitario instructed this RN to stop heparin drip at this time, heparin drip stopped
[2023-04-22 20:21] LABS: POC Glucose,Bedside 127 (70-110)
--- NOTE | 2023-04-22 22:35 | PC.NURSE ---
LATE ENTRY: @0642, 04/22/23: EDITH CALLED FROM [facility]; PTT 129.3, NEW ORDERS TO TITRATE HEPARIN GTT TO 600U/HR AND CHECK PTT IN 6 HOURS. EDITH FROM [facility] PLACED THOSE ORDERS AND THIS RN TITRATE GTT ORDERED; SEE MAR.
--- NOTE | 2023-04-22 22:37 | PC.NURSE ---
@ 2152 PT IS VERY RESTLESS, AGITATED, AND YELLING FOR HELP. THIS RN TRIED TO REDIRECT THE PT AND WAS UNSUCCESSFUL. PT ASKED IF HSE WAS IN PAIN AND ANSWERED YES; PRN MORPHINE GIVEN AND PT IS MORE CALM AND RESTING AT THIS TIME.
[2023-04-23] VITALS (41 sets, daily range): BP systolic 82–114; BP diastolic 48–70; PULSE 77–91; RESP 14–24; TEMP 35.8–36.6; O2SAT 90–100; BMI 24.2
[2023-04-23 05:50] LABS: Basophils % 0.2 % (0.1-2.0); Eosinophils % 0.3 % (0.1-12.0); Hematocrit 32.8 % (37.0-47.0); Hemoglobin 10.1 g/dL (12.2-16.2); Lymphocytes # 0.6 K/mm3 (0.7-4.5); Lymphocytes % 7.4 % (10-50); Mean Corpuscular HGB Conc 30.9 g/dL (31.8-35.4); Mean Corpuscular Hemoglobin 39.9 pg (27.0-31.2); Mean Corpuscular Volume 129.1 fl (81-99); Mean Platelet Volume 11.8 fl (7.4-10.4); Monocytes # 0.7 K/mm3 (0.1-1.0); Monocytes % 8.4 % (1.7-9.3); Neutrophils # 6.9 K/mm3 (1.8-7.8); Neutrophils % 83.8 % (37.0-80.0); Red Blood Count 2.54 M/mm3 (4.20-5.40); Red Cell Distribution Width 15.7 % (11.5-17.5); White Blood Count 8.3 K/mm3 (4.8-10.8)
[2023-04-23 05:58] LABS: Alanine Aminotransferase 69 U/L (12-78); Albumin Level 2.3 g/dl (3.5-5.0); Albumin/Globulin Ratio 0.8 (1.1-1.8); Alkaline Phosphatase 193 U/L (38-126); Anion Gap 10.3 mEq/L (5-15); Aspartate Amino Transferase 217 U/L (14-36); Bilirubin,Total 12.7 mg/dl (0.2-1.3); Blood Urea Nitrogen 39 mg/dl (7-17); Calcium 7.3 mg/dl (8.4-10.2); Carbon Dioxide 28 mmol/L (22.0-30.0); Chloride 103 mmol/L (98-107); Creatinine Clearance Estimated 51 mL/min (50-200); Estimated Glomerular Filt Rate 38 ml/min (>60); GFR (African American) 46 ML/MIN (>60); Globulin 2.8 g/dL (1.3-3.2); Glucose 118 mg/dl (74-100); Magnesium 2.3 mg/dl (1.6-2.3); Phosphorous 2.5 mg/dl (2.5-4.5); Potassium 3.3 mmoL/L (3.5-5.1); Sodium 138 mmol/L (136-145); Total Protein,Serum 5.1 g/dl (6.3-8.2)
[2023-04-23 06:00] LABS: Platelet Count 37 K/mm3 (142-424)
--- NOTE | 2023-04-23 09:08 | PC.NURSE ---
COURTESY TECH NOTE; ROUNDED ON PT 0815, PT DENIED NEED FOR ASSISTANCE WITH RESTROOM, AND NEED TO REPOSITION IN BED. CALL LIGHT WITHIN REACH, NO FURTHER REQUESTS AT THIS TIME. Stefani SANTIAGO, SRNA
--- NOTE | 2023-04-23 09:28 | EXP.PHA.PN ---
Subjective *Date: 04/23/23 *Time: 09:28 Medical Exam Vital signs and Labs for Last 24 Hours: Vital Signs Temp Pulse Pulse Resp BP Pulse Ox O2 Del Method 04/23/23 08:00 82 04/23/23 08:30 77 20 90/51 L 97 BiPAP 04/23/23 07:55 96 BiPAP 04/23/23 09:00 BiPAP 04/23/23 09:00 81 20 94/54 L 96 BiPAP 04/23/23 08:00 96.5 F L 82 20 91/49 L BiPAP 04/23/23 07:46 96.5 F L 04/23/23 06:51 79 20 92/70 L 96 BiPAP 04/23/23 06:51 BiPAP 04/23/23 06:40 04/23/23 06:40 85 04/23/23 06:40 82 04/23/23 06:00 81 24 105/62 L 100 BiPAP 04/23/23 06:00 04/23/23 00:00 80 04/23/23 04:00 90 04/23/23 04:00 97.9 F 04/23/23 04:15 84 22 94/59 L 98 BiPAP 04/23/23 05:00 80 20 92/59 L 95 BiPAP 04/23/23 05:00 BiPAP 04/23/23 04:00 85 20 114/62 95 BiPAP 04/23/23 04:00 97 BiPAP 04/23/23 04:00 85 04/23/23 03:00 82 20 90/53 L 98 BiPAP 04/23/23 03:00 BiPAP 04/23/23 02:08 78 04/23/23 02:08 83 04/23/23 02:08 04/23/23 02:00 81 21 104/63 L 99 BiPAP 04/23/23 01:00 91 H 22 97/62 L 98 BiPAP 04/23/23 01:00 BiPAP 04/23/23 00:00 96 BiPAP 04/23/23 00:00 89 04/23/23 00:00 97.8 F 04/22/23 22:00 92 H 18 94/59 L 97 BiPAP 04/22/23 21:00 96 H 15 103/58 L 98 BiPAP 04/22/23 21:00 BiPAP 04/22/23 23:00 80 24 93/59 L 98 BiPAP 04/22/23 23:00 BiPAP 04/22/23 20:00 97 BiPAP 04/22/23 22:19 89 04/22/23 22:19 91 H 04/22/23 22:19 04/22/23 20:00 90 04/22/23 20:00 97.7 F 04/22/23 18:33 BiPAP 04/22/23 17:00 BiPAP 04/22/23 18:00 91 H 20 93/57 L 98 BiPAP 04/22/23 17:00 98 H 16 105/68 L 99 BiPAP 04/22/23 16:00 93 L BiPAP 04/22/23 18:10 91 H 04/22/23 18:10 89 04/22/23 18:10 93 L BiPAP 04/22/23 18:10 04/22/23 16:00 90 04/22/23 16:00 91 H 9 L 107/64 L 98 BiPAP 04/22/23 15:00 88 11 L 90/50 L 98 BiPAP 04/22/23 15:55 98.7 F 04/22/23 12:00 90 04/22/23 14:58 BiPAP 04/22/23 12:00 98 BiPAP 04/22/23 13:00 BiPAP 04/22/23 14:00 90 80/48 L 100 Vapotherm 04/22/23 13:00 87 72/48 L 99 Vapotherm 04/22/23 12:00 93 H 24 80/55 L 98 Vapotherm 04/22/23 11:00 93 H 88/56 L 99 Vapotherm 04/22/23 10:00 108 H 93/61 L 91 L Vapotherm 04/22/23 14:05 04/22/23 10:42 04/22/23 14:24 87 04/22/23 14:24 86 04/22/23 11:59 98.0 F 04/22/23 10:54 BiPAP O2 Flow Rate FiO2 04/23/23 08:00 04/23/23 08:30 35 04/23/23 07:55 35 04/23/23 09:00 35 04/23/23 09:00 35 04/23/23 08:00 35 04/23/23 07:46 04/23/23 06:51 35 04/23/23 06:51 04/23/23 06:40 35 04/23/23 06:40 04/23/23 06:40 04/23/23 06:00 04/23/23 06:00 35 04/23/23 00:00 04/23/23 04:00 04/23/23 04:00 04/23/23 04:15 35 04/23/23 05:00 35 04/23/23 05:00 04/23/23 04:00 35 04/23/23 04:00 35 04/23/23 04:00 04/23/23 03:00 35 04/23/23 03:00 35 04/23/23 02:08 04/23/23 02:08 04/23/23 02:08 35 04/23/23 02:00 35 04/23/23 01:00 35 04/23/23 01:00 04/23/23 00:00 35 04/23/23 00:00 04/23/23 00:00 04/22/23 22:00 35 04/22/23 21:00 35 04/22/23 21:00 35 04/22/23 23:00 35 04/22/23 23:00 04/22/23 20:00 35 04/22/23 22:19 04/22/23 22:19 04/22/23 22:19 35 04/22/23 20:00 04/22/23 20:00 04/22/23 18:33 04/22/23 17:00 04/22/23 18:00 35 04/22/23 17:00 35 04/22/23 16:00 35 04/22/23 18:10 04/22/23 18:10 04/22/23 18:10 35 04/22/23 18:10 35 04/22/23 16:00 04/22/23 16:00 35 04/22/23 15:00 100 04/22/23 15:55 04/22/23 12:00 04/22/23 14:58 04/22/23 12:00 100 04/22/23 13:00 04/22/23
--- NOTE | 2023-04-23 09:38 | EXP.ACUTE.PN ---
Subjective *Date: 04/23/23 *Time: 11:12 Interval history: Confused on exam this morning. Responds to touch, appears to be in pain wherever she is touched. Nonfocal. Vitals improved, blood pressure with systolics greater than 90 on vasopressin. Improved oxygen requirement to 35% on BiPAP. No fever overnight. Family at bedside. Medical Exam Vital signs and Labs for Last 24 Hours: Vital Signs Temp Pulse Pulse Resp BP Pulse Ox O2 Del Method 04/23/23 08:00 82 04/23/23 08:30 77 20 90/51 L 97 BiPAP 04/23/23 07:55 96 BiPAP 04/23/23 09:00 BiPAP 04/23/23 09:00 81 20 94/54 L 96 BiPAP 04/23/23 08:00 96.5 F L 82 20 91/49 L BiPAP 04/23/23 07:46 96.5 F L 04/23/23 06:51 79 20 92/70 L 96 BiPAP 04/23/23 06:51 BiPAP 04/23/23 06:40 04/23/23 06:40 85 04/23/23 06:40 82 04/23/23 06:00 81 24 105/62 L 100 BiPAP 04/23/23 06:00 04/23/23 00:00 80 04/23/23 04:00 90 04/23/23 04:00 97.9 F 04/23/23 04:15 84 22 94/59 L 98 BiPAP 04/23/23 05:00 80 20 92/59 L 95 BiPAP 04/23/23 05:00 BiPAP 04/23/23 04:00 85 20 114/62 95 BiPAP 04/23/23 04:00 97 BiPAP 04/23/23 04:00 85 04/23/23 03:00 82 20 90/53 L 98 BiPAP 04/23/23 03:00 BiPAP 04/23/23 02:08 78 04/23/23 02:08 83 04/23/23 02:08 04/23/23 02:00 81 21 104/63 L 99 BiPAP 04/23/23 01:00 91 H 22 97/62 L 98 BiPAP 04/23/23 01:00 BiPAP 04/23/23 00:00 96 BiPAP 04/23/23 00:00 89 04/23/23 00:00 97.8 F 04/22/23 22:00 92 H 18 94/59 L 97 BiPAP 04/22/23 21:00 96 H 15 103/58 L 98 BiPAP 04/22/23 21:00 BiPAP 04/22/23 23:00 80 24 93/59 L 98 BiPAP 04/22/23 23:00 BiPAP 04/22/23 20:00 97 BiPAP 04/22/23 22:19 89 04/22/23 22:19 91 H 04/22/23 22:19 04/22/23 20:00 90 04/22/23 20:00 97.7 F 04/22/23 18:33 BiPAP 04/22/23 17:00 BiPAP 04/22/23 18:00 91 H 20 93/57 L 98 BiPAP 04/22/23 17:00 98 H 16 105/68 L 99 BiPAP 04/22/23 16:00 93 L BiPAP 04/22/23 18:10 91 H 04/22/23 18:10 89 04/22/23 18:10 93 L BiPAP 04/22/23 18:10 04/22/23 16:00 90 04/22/23 16:00 91 H 9 L 107/64 L 98 BiPAP 04/22/23 15:00 88 11 L 90/50 L 98 BiPAP 04/22/23 15:55 98.7 F 04/22/23 12:00 90 04/22/23 14:58 BiPAP 04/22/23 12:00 98 BiPAP 04/22/23 13:00 BiPAP 04/22/23 14:00 90 80/48 L 100 Vapotherm 04/22/23 13:00 87 72/48 L 99 Vapotherm 04/22/23 12:00 93 H 24 80/55 L 98 Vapotherm 04/22/23 11:00 93 H 88/56 L 99 Vapotherm 04/22/23 10:00 108 H 93/61 L 91 L Vapotherm 04/22/23 14:05 04/22/23 10:42 04/22/23 14:24 87 04/22/23 14:24 86 04/22/23 11:59 98.0 F 04/22/23 10:54 BiPAP O2 Flow Rate FiO2 04/23/23 08:00 04/23/23 08:30 35 04/23/23 07:55 35 04/23/23 09:00 35 04/23/23 09:00 35 04/23/23 08:00 35 04/23/23 07:46 04/23/23 06:51 35 04/23/23 06:51 04/23/23 06:40 35 04/23/23 06:40 04/23/23 06:40 04/23/23 06:00 04/23/23 06:00 35 04/23/23 00:00 04/23/23 04:00 04/23/23 04:00 04/23/23 04:15 35 04/23/23 05:00 35 04/23/23 05:00 04/23/23 04:00 35 04/23/23 04:00 35 04/23/23 04:00 04/23/23 03:00 35 04/23/23 03:00 35 04/23/23 02:08 04/23/23 02:08 04/23/23 02:08 35 04/23/23 02:00 35 04/23/23 01:00 35 04/23/23 01:00 04/23/23 00:00 35 04/23/23 00:00 04/23/23 00:00 04/22/23 22:00 35 04/22/23 21:00 35 04/22/23 21:00 35 04/22/23 23:00 35 04/22/23 23:00 04/22/23 20:00 35 04/22/23 22:19 04/22/23 22:19 04/22/23 22:19 35 04/22/23 20:00 04/22/23 20:00 04/22/23 18:33 04/22/23 17:00 04/22/23 18:00 35
[2023-04-23 09:43] LABS: ABG Base Excess -0.2 mmol/L (-2.4-2.3); ABG HCO3 25.3 mmhg (22.0-26.0); ABG Oxygen Saturation 96 % (90-100); ABG PH 7.36 mmol/L (7.35-7.45); ABG PO2 78.5 mmhg (80-100); ABG TCO2 26.7 mmhg (23-27)
[2023-04-23 09:45] LABS: Allen's Test ACCEPTABLE; Oxygen 35% %; Source R RADIAL; Tidal Volume 16/8
--- NOTE | 2023-04-23 09:45 | EXP.PULM.PN ---
Subjective *Date: 04/23/23 *Time: 10:05 Interval history: Currently responding to painful stimuli. Moaning. Pulmonology Exam Inpatient Vital signs and Labs for Last 24 Hours: Temp Pulse Resp BP Pulse Ox O2 Del Method O2 Flow Rate 96.5 F L 81 20 94/54 L 96 BiPAP 35 04/23/23 08:00 04/23/23 09:00 04/23/23 09:00 04/23/23 09:00 04/23/23 09:00 04/23/23 09:00 04/23/23 09:00 FiO2 35 04/23/23 08:30 Laboratory Results - last 24 hr 04/18/23 19:35: Vitamin B1 76.0 04/22/23 09:49: Specimen Source Right radial, O2 % 40l, 100%, ABG pH 7.01 L*, ABG pCO2 117.9 H, ABG pO2 62.9 L, ABG HCO3 29.3 H, ABG Total CO2 32.9 H, ABG O2 Saturation 84 L*, ABG Base Excess -1.8, Jah Test Acceptable 04/22/23 10:40: APTT 75.7 H*, Phosphorus 4.2, Ammonia 20 04/22/23 11:05: Specimen Source Right radial, O2 % 50%, ABG pH 7.21 L*, ABG pCO2 58.7 H, ABG pO2 84.0, ABG HCO3 23.1, ABG Total CO2 24.9, ABG O2 Saturation 96, ABG Base Excess -4.7 L, Jah Test Acceptable 04/22/23 11:35: POC Glucose 112 H 04/22/23 13:45: APTT 57.1 H* 04/22/23 15:30: Specimen Source Right radial, O2 % 50%, ABG pH 7.32 L, ABG pCO2 48.9 H, ABG pO2 137.1 H, ABG HCO3 24.8, ABG Total CO2 26.3, ABG O2 Saturation 99, ABG Base Excess -1.2, Jah Test Acceptable, PEEP Bipap 16/8 04/22/23 17:25: POC Glucose 124 H 04/22/23 18:10: APTT 53.5 H*, Sodium 137, Potassium 3.4 L, Chloride 100, Carbon Dioxide 29, Anion Gap 11.4, BUN 35 H, Creatinine 1.20 H D, Estimated Creat Clear 59, Estimated GFR 46 L, Est GFR ( Amer) 55 L D, Glucose 112 H, Calcium 7.1 L, Total Bilirubin 12.1 H*, AST 210 H D, ALT 66, Alkaline Phosphatase 216 H, Total Protein 5.1 L, Albumin 2.2 L D, Globulin 2.9, Albumin/Globulin Ratio 0.8 L 04/22/23 20:13: POC Glucose 127 H 04/23/23 05:40: WBC 8.3 D, RBC 2.54 L, Hgb 10.1 L, Hct 32.8 L, MCV 129.1 H, MCH 39.9 H, MCHC 30.9 L, RDW 15.7, Plt Count 37 L* D, MPV 11.8 H, Neut % (Auto) 83.8 H, Lymph % (Auto) 7.4 L, [place] % (Auto) 8.4, Eos % (Auto) 0.3, Baso % (Auto) 0.2, Neut # (Auto) 6.9, Lymph # (Auto) 0.6 L, [place] # (Auto) 0.7, Eos # (Auto) 0.0, Baso # (Auto) 0.0, Sodium 138, Potassium 3.3 L, Chloride 103, Carbon Dioxide 28, Anion Gap 10.3, BUN 39 H, Creatinine 1.40 H, Estimated Creat Clear 51, Estimated GFR 38 L, Est GFR ( Amer) 46 L, Glucose 118 H, Calcium 7.3 L, Phosphorus 2.5 D, Magnesium 2.3, Total Bilirubin 12.7 H*, AST 217 H, ALT 69, Alkaline Phosphatase 193 H, Total Protein 5.1 L, Albumin 2.3 L, Globulin 2.8, Albumin/Globulin Ratio 0.8 L I & O for Labs for Last 24 Hours: Intake & Output 04/20/23 04/21/23 04/22/23 04/23/23 23:59 23:59 23:59 23:59 Intake Total 2328.2 / 2468.2 832 / 1623 1390.959 / 1390.959 589.89 / 589.89 Output Total 2074 / 2074 1325 / 1975 1200 / 1200 Balance 253.2 / 393.2 -493 / -352 190.959 / 190.959 589.89 / 589.89 Weight 170 lb 172 lb 1 oz 168 lb 4.003 oz 169 lb 0.49 oz Microbiology Reports for the Last 24 Hours: Microbiology 04/19/23 10:52 Blood Blood Culture - Preliminary Escherichia coli Constitutional: Present severe distress Head: Present normocephalic and atraumatic ENT: Present normal exam and normal oropharynx Neck: Present normal inspection Respiratory: Present respiratory distress, rhonchi, crackles and diminished air movement; Absent able to speak in complete sentences Cardiac: Present S1/S2, Tachycardia and radial pulses present GI: Present soft and distention; Absent tenderness or guarding Rectal (female): Present deferred (female): Present deferred Skin: Present intact; Absent cyanosis or jaundice Neuro: Absent alert, awake or oriented x 3 Extremities: Present normal inspection; Absent clubbing or cyanosis Psychiatric: Present normal affect and cooperative Assessment and Plan *Assessment and plan (1) Altered mental state: Status: Acute Qualifiers: Altered mental status type: somnolence Qualified Code(s): R40.0 - Somnolence Category: Medical Code(s): R41.
--- NOTE | 2023-04-23 10:40 | DIET.NUTRFU ---
Addendum entered by Kala Singh RD, 04/23/23 14:39: reviewing flush with nursing and provider. Requested a total volume from pharmacy. On 04/22 she received 1389 and her output was 1200ml with a balance of 190ml. Today the additional supplements were added but heparin was discontinued. Pharmacy reported daily fluid via IV is 1125ml/day. Continue the 100 R0L=640nr/day, may need to adjust as goal rate is meet depending on output at that time. Addendum entered by Kala Singh RD, 04/23/23 14:15: Start TF at 10ml/hr and increasre Q4-6 hours as tolerated to reach goal rate of 50ml/hr to provide optimal nutrition Addendum entered by Kala Singh RD, 04/23/23 14:08: This RD notified by nursing NG was placed, waiting verification and then provider would like TF to be started to provide patient with nutrition. Start TF pulmocare formula would best meet needs at 10ml/hr with goal rate at 50ml providing 1200ml/1800kcal/75gm protein and 958ml free water. No bolus IVF ordered at this time. She is receiving some IV with medications and is still edematous. Current Na [id number]. Flush would need to be 100ml [id number] water providing total fluid of 1550ml/day, may increase once fluid status changes. Original Note: Patient shows some improvement today, was able to get off oxygen. She has expressed a lot of pain everywhere. NG tube placement was unsuccessful, was able to administrate the vanco this AM. During rounds discussed IV thiamine, B12 shot, folate IV for repletion. She is still edematous, receiving enough IV fluids with medications. Ammonia showed improvement, lactulose continues 1 BM noted 04/22 and 1 already today. Will continue to monitor po intake, if unable to consume nutrition oral may need to reattempt NG placement
--- NOTE | 2023-04-23 13:56 | XR_ITS ---
FINAL REPORT CLINICAL HISTORY: NG tube placement COMPARISON: 04/22/2023 FINDINGS: A single portable view of the chest was obtained. The heart size and pulmonary vascularity are within normal limits. The patient is status post median sternotomy. Bibasilar opacities may represent atelectasis or pneumonia. A nasogastric tube is present with the tip in the region of the body of the stomach. IMPRESSION: Bibasilar opacities may represent atelectasis or pneumonia. NG tube tip in the region of the body of the stomach. Reviewed, Interpreted and Dictated by Kristian Petersen III, MD Transcribed by Alyx Guerrero Authenticated and [facility]
--- NOTE | 2023-04-23 15:11 | INFXCTL.NOTE ---
NG tube position verified by Dr Solitario via x ray image at 1440. Tube feedings started at 1450.
--- NOTE | 2023-04-23 15:13 | PC.NURSE ---
All drip titrations and critical care of patient provided by Stefani Velasquez RN was provided under my direct supervision
--- NOTE | 2023-04-23 17:31 | PC.NURSE ---
PT IS ALERT TO SELF AT THIS TIME. SHE OPENS EYES WHEN YOU SAY HER NAME OR LIGHT TOUCH. PT TOLERATING 35% ON BIPAP AT THIS TIME. TOLERATED 4L NC WELL EARLIER IN THE SHIFT WHILE SHE WAS AWAKE BUT PER DR WINSTON HE WOULD LIKE PT ON BIPAP WHEN ASLEEP. PT HAS SLEPT MOST OF SHIFT. SHE HAS YELLED OUT A FEW TIMES THIS SHIFT STATING HELP ME OR I CAN'T DO THIS. THIS NURSE HAS ASKED PT IF SHE IS IN PAIN AND PT HAS RESPONDED I DON'T KNOW. THIS NURSE HAS MEDICATED PT TWICE FOR PAIN WITH MORPHINE VIA MAR. ON REASSESSMENT, PT WAS RESTING WITH EYES CLOSED. RESPIRATIONS REGULAR AND UNLABORED. DIMINISHED BREATH SOUNDS NOTED THROUGHOUT. FINE CRACKLES SCATTERED THROUGHOUT SINCE THIS AFTERNOON. +1 PULSES NOTED THROUGHOUT. +2 PITTING EDEMA NOTED TO LLE. +3 EDEMA NOTED TO RLE. ACTIVE BOWEL SOUNDS HEARD IN ALL 4 QUADRANTS. SOFT AND NONTENDER. NO BM THUS FAR. VOIDS PER PURWICK WITH CLEAR DARK YELLOW NOTED IN CANNISTER. BED ALARM IN PLACE. SEIZURE PRECAUTIONS IN PLACE. PT CURRENTLY ON VASOPRESSION 0.03UNITS/MIN TOLERATING WELL. PT HAS RECEIVED SEVERAL ANTIBIOTICS THIS SHIFT TOLERATING WELL. PT IS CURRENTLY RECEIVING TUBE FEEDINGS AND TOLERATING WELL. RESIDUAL CHECKED Q 4 HOURS. FAMILY HAS BEEN AT BEDSIDE THROUGHOUT SHIFT. MITTENS IN PLACE FOR PROTECTION OF PATIENT AND DUE TO PT TRYING TO PULL OUT IV. CIWA UNABLE TO BE COMPLETED DUE TO PT NOT BEING ABLE TO ANSWER QUESTIONS APPROPRIATELY. PT RECEIVED BATH AND LINEN CHANGE THIS SHIFT. WEEPING NOTED TO EXTREMITIES. HEELS FLOATED DUE TO SOME BRUISING NOTED. REDNESS NOTED TO COCCYX. PT TURNED Q 2 HOURS AND CHANGED NEEDED. DOG SCRATCH NOTED TO RLE. DRESSING ON THIS AM BUT REMOVED AND OPEN TO AIR DUE TO WEEPING BLE. CALL LIGHT WITHIN REACH. BED IN LOWEST POSITION.
--- NOTE | 2023-04-23 18:33 | PC.NURSE ---
RESIDUAL CHECKED AND IT WAS 20ML. NOTIFIED DR SUAREZ. HE STATED TO KEEP INCREASING THE DOSAGE LONG PT TOLERATES OK AND DOESN'T HAVE A RESIDUAL GREATER THAN 100ML. IF SO NOTIFY HIM TO POSSIBLY SLOW DOWN TUBE FEEDINGS. VERBALIZED UNDERSTANDING.
[2023-04-23 19:33] LABS: Anion Gap 12.5 mEq/L (5-15); Blood Urea Nitrogen 42 mg/dl (7-17); Calcium 7.2 mg/dl (8.4-10.2); Carbon Dioxide 24 mmol/L (22.0-30.0); Chloride 106 mmol/L (98-107); Creatinine Clearance Estimated 51 mL/min (50-200); Estimated Glomerular Filt Rate 38 ml/min (>60); GFR (African American) 46 ML/MIN (>60); Glucose 99 mg/dl (74-100); Potassium 3.5 mmoL/L (3.5-5.1); Sodium 139 mmol/L (136-145)
[2023-04-24] VITALS (37 sets, daily range): BP systolic 81–116; BP diastolic 40–72; PULSE 80–97; RESP 14–22; TEMP 37–37.3; O2SAT 92–100; BMI 24.8
[2023-04-24 06:58] LABS: Basophils % 0.1 % (0.1-2.0); Eosinophils # 0.1 K/mm3 (0.0-0.4); Eosinophils % 0.8 % (0.1-12.0); Hematocrit 33.2 % (37.0-47.0); Hemoglobin 10.2 g/dL (12.2-16.2); Lymphocytes # 0.7 K/mm3 (0.7-4.5); Lymphocytes % 7.8 % (10-50); Mean Corpuscular HGB Conc 30.9 g/dL (31.8-35.4); Mean Corpuscular Volume 129.5 fl (81-99); Mean Platelet Volume 12.6 fl (7.4-10.4); Monocytes # 0.8 K/mm3 (0.1-1.0); Monocytes % 9.5 % (1.7-9.3); Neutrophils # 7.1 K/mm3 (1.8-7.8); Neutrophils % 81.8 % (37.0-80.0); Red Blood Count 2.56 M/mm3 (4.20-5.40); Red Cell Distribution Width 15.8 % (11.5-17.5); White Blood Count 8.7 K/mm3 (4.8-10.8)
[2023-04-24 07:06] LABS: INR 1.34 (0.9-1.1); Platelet Count 32 K/mm3 (142-424); Prothrombin Time 14.2 seconds (10.1-12.5)
[2023-04-24 07:31] LABS: Alanine Aminotransferase 68 U/L (12-78); Albumin Level 2.3 g/dl (3.5-5.0); Albumin/Globulin Ratio 0.9 (1.1-1.8); Alkaline Phosphatase 207 U/L (38-126); Anion Gap 12.4 mEq/L (5-15); Aspartate Amino Transferase 203 U/L (14-36); Bilirubin,Total 11.5 mg/dl (0.2-1.3); Blood Urea Nitrogen 44 mg/dl (7-17); Calcium 7.3 mg/dl (8.4-10.2); Carbon Dioxide 23 mmol/L (22.0-30.0); Chloride 108 mmol/L (98-107); Creatinine Clearance Estimated 56 mL/min (50-200); Estimated Glomerular Filt Rate 42 ml/min (>60); GFR (African American) 50 ML/MIN (>60); Globulin 2.7 g/dL (1.3-3.2); Glucose 123 mg/dl (74-100); Potassium 3.4 mmoL/L (3.5-5.1); Sodium 140 mmol/L (136-145)
--- NOTE | 2023-04-24 08:04 | EXP.ACUTE.PN ---
Subjective *Date: 04/24/23 *Time: 09:22 Interval history: Patient rested comfortably overnight until about 4 this morning. Started yelling out for help. Has been tolerant of BiPAP. Remains afebrile. Blood pressures within goal on just vasopressin. Decreased urine output over the past 24 hours. Appears to be having some improved alertness. Family at bedside, updated of plan. Medical Exam Vital signs and Labs for Last 24 Hours: Vital Signs Temp Pulse Pulse Resp BP Pulse Ox O2 Del Method 04/24/23 07:00 89 16 111/50 L 100 BiPAP 04/24/23 07:00 BiPAP 04/24/23 06:00 84 18 85/54 L 100 BiPAP 04/24/23 05:57 87 04/24/23 05:57 85 04/24/23 05:57 04/24/23 05:00 83 16 102/60 L 100 BiPAP 04/24/23 05:00 BiPAP 04/24/23 04:00 82 04/24/23 04:00 82 18 100/66 L 99 BiPAP 04/24/23 04:00 BiPAP 04/24/23 03:00 83 17 102/63 L 100 BiPAP 04/24/23 03:00 BiPAP 04/24/23 02:12 85 04/24/23 02:12 81 04/24/23 02:12 04/24/23 02:00 85 18 116/50 L 96 BiPAP 04/24/23 01:00 84 16 106/72 L 100 BiPAP 04/24/23 01:00 BiPAP 04/24/23 00:00 83 04/24/23 00:00 81 16 113/72 100 BiPAP 04/24/23 00:00 99 BiPAP 04/23/23 23:00 80 18 102/70 L 97 CPAP 04/23/23 23:00 BiPAP 04/23/23 22:00 80 14 105/68 L 100 BiPAP 04/23/23 22:09 82 04/23/23 22:09 79 04/23/23 22:09 04/23/23 21:00 79 15 98/64 L 95 BiPAP 04/23/23 21:00 BiPAP 04/23/23 20:00 83 04/23/23 20:00 83 15 104/69 L 98 04/23/23 20:00 BiPAP 04/23/23 19:00 82 18 96/65 L 95 BiPAP 04/23/23 18:45 BiPAP 04/23/23 18:00 84 22 98/62 L 99 BiPAP 04/23/23 18:06 86 04/23/23 18:06 81 04/23/23 18:06 04/23/23 18:06 97 BiPAP 04/23/23 16:00 84 04/23/23 17:00 82 18 92/50 L 94 L BiPAP 04/23/23 16:05 BiPAP 04/23/23 16:57 BiPAP 04/23/23 16:00 82 16 97/55 L 94 L BiPAP 04/23/23 16:00 97.1 F L 04/23/23 15:00 BiPAP 04/23/23 15:00 90 16 89/48 L 93 L BiPAP 04/23/23 10:27 04/23/23 14:27 88 04/23/23 14:27 87 04/23/23 13:30 81 20 89/53 L 98 BiPAP 04/23/23 14:00 88 20 104/59 L 93 L Nasal Cannula 04/23/23 12:30 BiPAP 04/23/23 13:00 BiPAP 04/23/23 12:30 79 22 87/54 L 93 L BiPAP 04/23/23 13:00 83 22 82/51 L 90 L BiPAP 04/23/23 12:00 82 22 89/52 L 94 L BiPAP 04/23/23 11:30 83 20 92/51 L 94 L BiPAP 04/23/23 12:00 80 04/23/23 11:00 BiPAP 04/23/23 11:21 97.8 F 04/23/23 11:00 87 16 113/63 95 BiPAP 04/23/23 10:30 79 20 107/64 L 92 L BiPAP 04/23/23 09:30 77 20 90/57 L 92 L BiPAP 04/23/23 10:34 79 04/23/23 10:34 77 04/23/23 10:00 82 20 103/61 L 100 BiPAP 04/23/23 08:30 77 20 90/51 L 97 BiPAP 04/23/23 09:00 BiPAP 04/23/23 09:00 81 20 94/54 L 96 BiPAP O2 Flow Rate FiO2 04/24/23 07:00 35 04/24/23 07:00 04/24/23 06:00 35 04/24/23 05:57 04/24/23 05:57 04/24/23 05:57 35 04/24/23 05:00 35 04/24/23 05:00 04/24/23 04:00 04/24/23 04:00 35 04/24/23 04:00 35 04/24/23 03:00 35 04/24/23 03:00 04/24/23 02:12 04/24/23 02:12 04/24/23 02:12 35 04/24/23 02:00 35 04/24/23 01:00 35 04/24/23 01:00 04/24/23 00:00 04/24/23 00:00 35 04/24/23 00:00 35 04/23/23 23:00 35 04/23/23 23:00 04/23/23 22:00 35 04/23/23 22:09 04/23/23 22:09 04/23/23 22:09 35 04/23/23 21:00 35 04/23/23 21:00 35 04/23/23 20:00 04/23/23 20:00 04/23/23 20:00 35 04/23/23 19:00 04/23/23 18:45 04/23/23 18:00 35 04/23/23 18:06 04/23/23 18:06 04/23/23 18:06 35 04/23/23 18:06 35 04/23/23 16:00 04/23/23 17:00 04/23/23 16:05 04/23/23 16:57 04/23/23 16:00
--- NOTE | 2023-04-24 08:55 | PC.NURSE ---
vaso drip infusing at 0.03 at start of shift. bp noted 101/64 at 8:45. drip titrated to 0.02.
--- NOTE | 2023-04-24 16:22 | PC.NURSE ---
1600 Thorough skin assessment completed with Dr Solitario and stephen. pt has scratch/cut to rle that has serous fluid weeping from around wound. pt also noted to have weeping from all 4 extremities. pt has bruises scattered on trunk, jolly arms and jolly legs. pt skin is also jaundiced in appearance. pt has stage 2 and maceration note to skin surrounding rectum. barrier cream applied with every change of attends. pt heels elevated and foot pillows in place . dressing changed to iv in r fa and dressing changed on left upper extremity midline.
--- NOTE | 2023-04-24 18:06 | PC.NURSE ---
1805 vasopressin drip increased to 0.03units/min/hr r/t bp 83/51 (61)
--- NOTE | 2023-04-24 18:08 | PC.NURSE ---
1805 vasopressin drip increased to 0.03units/min/hr r/t bp 83/51 (61)
--- NOTE | 2023-04-24 18:08 | PC.NURSE ---
1809 tube feeds on hold at this time r/t residual of 120ml
--- NOTE | 2023-04-24 22:15 | PC.NURSE ---
2000 ng tube residual 160ml. 40 ml flush given at this time with 2100 meds. Held tube feed. 2200 ng residual 180ml. Continuing to hold tube feeding
[2023-04-25] VITALS (51 sets, daily range): BP systolic 81–103; BP diastolic 44–65; PULSE 70–98; RESP 12–22; TEMP 36.4–37.6; O2SAT 92–100; BMI 25.0
--- NOTE | 2023-04-25 02:35 | PC.NURSE ---
0200 ng residual 30ml. Tube restarted at 30ml/hr
[2023-04-25 07:39] LABS: Basophils % 0.3 % (0.1-2.0); Eosinophils # 0.1 K/mm3 (0.0-0.4); Eosinophils % 1.1 % (0.1-12.0); Hematocrit 31.2 % (37.0-47.0); Hemoglobin 9.7 g/dL (12.2-16.2); Lymphocytes # 0.9 K/mm3 (0.7-4.5); Lymphocytes % 8.7 % (10-50); Mean Corpuscular Volume 129.5 fl (81-99); Mean Platelet Volume 13.7 fl (7.4-10.4); Monocytes # 0.9 K/mm3 (0.1-1.0); Monocytes % 8.4 % (1.7-9.3); Neutrophils # 8.6 K/mm3 (1.8-7.8); Neutrophils % 81.5 % (37.0-80.0); Red Blood Count 2.41 M/mm3 (4.20-5.40); Red Cell Distribution Width 15.7 % (11.5-17.5); White Blood Count 10.5 K/mm3 (4.8-10.8)
[2023-04-25 07:46] LABS: Alanine Aminotransferase 66 U/L (12-78); Albumin Level 2.3 g/dl (3.5-5.0); Albumin/Globulin Ratio 0.9 (1.1-1.8); Alkaline Phosphatase 205 U/L (38-126); Anion Gap 12.2 mEq/L (5-15); Aspartate Amino Transferase 204 U/L (14-36); Bilirubin,Total 10.9 mg/dl (0.2-1.3); Blood Urea Nitrogen 45 mg/dl (7-17); Calcium 7.5 mg/dl (8.4-10.2); Carbon Dioxide 27 mmol/L (22.0-30.0); Chloride 108 mmol/L (98-107); Creatinine Clearance Estimated 57 mL/min (50-200); Estimated Glomerular Filt Rate 42 ml/min (>60); GFR (African American) 50 ML/MIN (>60); Globulin 2.5 g/dL (1.3-3.2); Glucose 125 mg/dl (74-100); Magnesium 1.8 mg/dl (1.6-2.3); Potassium 3.2 mmoL/L (3.5-5.1); Sodium 144 mmol/L (136-145); Total Protein,Serum 4.8 g/dl (6.3-8.2)
[2023-04-25 07:50] LABS: Mean Corpuscular Hemoglobin 40.1 pg (27.0-31.2)
[2023-04-25 07:52] LABS: Platelet Count 46 K/mm3 (142-424)
--- NOTE | 2023-04-25 08:06 | EXP.ACUTE.PN ---
Subjective *Date: 04/25/23 *Time: 09:07 Interval history: Tolerated BiPAP overnight. Tube feeds held briefly due to residual of 200 cc. Resumed this morning. Patient remains afebrile. Blood pressure with maps 65-70 on 0.03 vasopressin. No bowel movement in 24 hours. Urine output of approximately 650 cc over the past 24 hours. Medical Exam Vital signs and Labs for Last 24 Hours: Vital Signs Temp Pulse Pulse Resp BP Pulse Ox O2 Del Method 04/25/23 07:52 99.7 F H 04/25/23 07:00 80 18 91/58 L 93 L BiPAP 04/25/23 06:20 77 04/25/23 06:20 76 04/25/23 06:20 99 BiPAP 04/25/23 06:20 04/25/23 06:00 77 16 99/59 L 96 BiPAP 04/25/23 05:00 75 15 102/60 L 99 BiPAP 04/25/23 06:37 BiPAP 04/25/23 05:00 BiPAP 04/25/23 04:00 70 04/25/23 04:00 76 97 BiPAP 04/25/23 04:00 97.6 F 78 14 99/60 L 96 BiPAP 04/25/23 03:00 77 14 99/58 L 99 BiPAP 04/25/23 02:40 BiPAP 04/25/23 02:00 78 16 101/57 L 99 BiPAP 04/24/23 21:30 04/25/23 02:31 91 H 04/25/23 02:30 93 H 04/25/23 01:00 BiPAP 04/25/23 01:00 98 H 14 92/54 L 100 BiPAP 04/25/23 00:00 97.8 F 79 14 93/57 L 99 BiPAP 04/25/23 00:00 99 BiPAP 04/25/23 00:00 75 95 BiPAP 04/25/23 00:00 80 04/24/23 20:00 90 04/24/23 23:30 80 84/50 L 04/24/23 23:00 80 14 89/54 L 99 BiPAP 04/24/23 22:35 BiPAP 04/24/23 22:00 83 14 90/52 L 99 BiPAP 04/24/23 21:00 Nasal Cannula 04/24/23 21:00 91 H 18 93/53 L 94 L Nasal Cannula 04/24/23 20:00 98.6 F 87 14 97/57 L 94 L Nasal Cannula 04/24/23 21:43 Nasal Cannula 04/24/23 21:43 96 H 04/24/23 21:42 97 H 04/24/23 20:00 88 92 L Nasal Cannula 04/24/23 19:00 89 22 97/59 L 95 Nasal Cannula 04/24/23 19:00 Nasal Cannula 04/24/23 17:40 Nasal Cannula 04/24/23 18:00 91 H 20 83/51 L 94 L Nasal Cannula 04/24/23 17:00 93 H 20 90/49 L 93 L Nasal Cannula 04/24/23 16:00 90 04/24/23 16:00 87 93 L Nasal Cannula 04/24/23 16:00 99.2 F 87 20 82/49 L 92 L Nasal Cannula 04/24/23 16:17 92 L Nasal Cannula 04/24/23 15:00 Nasal Cannula 04/24/23 15:00 93 H 22 95/54 L 95 Nasal Cannula 04/24/23 15:26 98.7 F 04/24/23 14:35 93 H 04/24/23 14:35 91 H 04/24/23 12:00 90 04/24/23 14:00 86 18 97/57 L 98 Nasal Cannula 04/24/23 13:00 90 18 106/62 L 97 Nasal Cannula 04/24/23 13:00 Nasal Cannula 04/24/23 12:05 Nasal Cannula 04/24/23 12:00 87 16 95/50 L 98 Nasal Cannula 04/24/23 11:15 97 Nasal Cannula 04/24/23 11:00 91 H 18 91/56 L 98 Nasal Cannula 04/24/23 11:00 Nasal Cannula 04/24/23 10:00 81 18 91/40 L 100 Nasal Cannula 04/24/23 09:53 87 04/24/23 09:53 90 04/24/23 09:00 Nasal Cannula 04/24/23 09:00 86 18 81/54 L 99 Nasal Cannula O2 Flow Rate FiO2 04/25/23 07:52 04/25/23 07:00 04/25/23 06:20 04/25/23 06:20 04/25/23 06:20 35 07/09/23 06:20 35 04/25/23 06:00 04/25/23 05:00 04/25/23 06:37 04/25/23 05:00 04/25/23 04:00 04/25/23 04:00 04/25/23 04:00 04/25/23 03:00 04/25/23 02:40 04/25/23 02:00 04/24/23 21:30 35 04/25/23 02:31 04/25/23 02:30 04/25/23 01:00 04/25/23 01:00 04/25/23 00:00 04/25/23 00:00 04/25/23 00:00 04/25/23 00:00 04/24/23 20:00 04/24/23 23:30 04/24/23 23:00 04/24/23 22:35 04/24/23 22:00 04/24/23 21:00 4 04/24/23 21:00 4 04/24/23 20:00 4 04/24/23 21:43 4 36 04/24/23 21:43 04/24/23 21:42 04/24/23 20:00 4 04/24/23 19:00 04/24/23 19:00 4 04/24/23 17:40 4 04/24/23 18:00 4 04/24/23 17:00 4 04/24/23 16:00 04/24/23 16:00 4 04/24/23 16:00 4 04/24/23 16:17 4 04/24/23 15:00 4 04/24/23 15
[2023-04-25 09:03] LABS: Phosphorous 1.7 mg/dl (2.5-4.5)
--- NOTE | 2023-04-25 09:42 | DIET.NUTRFU ---
Chart reviewed, Patient was started on TF on 04/23, was held on 04/24 due to high residuals of 120-160ml. TF of pulmocare was restarted today at 30ml/hr with goal rate of 50ml. Will monitor tolerance. She received 522ml in TF on 04/24, fluid received via tube was 585ml and IV fluid was 791ml, urine out was 525ml on 04/24, therefore had a +1373ml. If urine output continues to be <1000ml/day may need to decrease flush ordered of 100ml [id number]/day. She is also receiving dextrose with ABT tx and flushes with medications. +3 edema is still noted, no BM noted on 04/24-continues on lactulose. Had 2 BM noted on 04/23. Weight is up slightly at 79kg, was 76kg on 04/22, wt gain possibly d/t fluid and BM status. Labs reviewed: Na 144, K 3.2L-KCL in place, BUN 45, Cr 1.3, gluc 125H, bilirubin 10.9H, AST 204H, albumin 2.3L, Phosphate 1.7L, Calcium 7.5L. Prognosis continues to be poor, will continue to monitor TF tolerance and I/O's.
--- NOTE | 2023-04-25 10:18 | PC.NURSE ---
Addendum entered by Marcela Martínez RN 04/25/23 18:55: 1855 drip decreased to 0.01 units/min r/t bp 103/59 Original Note: at start of shift pt vasopressin infusing at units/min 0843 drip decreased to 0.02units/min r/t bp 102/65 (77)
--- NOTE | 2023-04-25 10:22 | EXP.PHA.PN ---
Subjective *Date: 04/25/23 *Time: 10:22 Medical Exam Vital signs and Labs for Last 24 Hours: Vital Signs Temp Pulse Pulse Resp BP Pulse Ox O2 Del Method 04/25/23 09:45 86 04/25/23 09:45 83 04/25/23 09:45 98 Nasal Cannula 04/25/23 09:07 97.7 F 04/25/23 07:52 99.7 F H 04/25/23 07:30 75 99 BiPAP 04/25/23 07:00 80 18 91/58 L 93 L BiPAP 04/25/23 06:20 77 04/25/23 06:20 76 04/25/23 06:20 99 BiPAP 04/25/23 06:20 04/25/23 06:00 77 16 99/59 L 96 BiPAP 04/25/23 05:00 75 15 102/60 L 99 BiPAP 04/25/23 06:37 BiPAP 04/25/23 05:00 BiPAP 04/25/23 04:00 70 04/25/23 04:00 76 97 BiPAP 04/25/23 04:00 97.6 F 78 14 99/60 L 96 BiPAP 04/25/23 03:00 77 14 99/58 L 99 BiPAP 04/25/23 02:40 BiPAP 04/25/23 02:00 78 16 101/57 L 99 BiPAP 04/24/23 21:30 04/25/23 02:31 91 H 04/25/23 02:30 93 H 04/25/23 01:00 BiPAP 04/25/23 01:00 98 H 14 92/54 L 100 BiPAP 04/25/23 00:00 97.8 F 79 14 93/57 L 99 BiPAP 04/25/23 00:00 99 BiPAP 04/25/23 00:00 75 95 BiPAP 04/25/23 00:00 80 04/24/23 20:00 90 04/24/23 23:30 80 84/50 L 04/24/23 23:00 80 14 89/54 L 99 BiPAP 04/24/23 22:35 BiPAP 04/24/23 22:00 83 14 90/52 L 99 BiPAP 04/24/23 21:00 Nasal Cannula 04/24/23 21:00 91 H 18 93/53 L 94 L Nasal Cannula 04/24/23 20:00 98.6 F 87 14 97/57 L 94 L Nasal Cannula 04/24/23 21:43 Nasal Cannula 04/24/23 21:43 96 H 04/24/23 21:42 97 H 04/24/23 20:00 88 92 L Nasal Cannula 04/24/23 19:00 89 22 97/59 L 95 Nasal Cannula 04/24/23 19:00 Nasal Cannula 04/24/23 17:40 Nasal Cannula 04/24/23 18:00 91 H 20 83/51 L 94 L Nasal Cannula 04/24/23 17:00 93 H 20 90/49 L 93 L Nasal Cannula 04/24/23 16:00 90 04/24/23 16:00 87 93 L Nasal Cannula 04/24/23 16:00 99.2 F 87 20 82/49 L 92 L Nasal Cannula 04/24/23 16:17 92 L Nasal Cannula 04/24/23 15:00 Nasal Cannula 04/24/23 15:00 93 H 22 95/54 L 95 Nasal Cannula 04/24/23 15:26 98.7 F 04/24/23 14:35 93 H 04/24/23 14:35 91 H 04/24/23 12:00 90 04/24/23 14:00 86 18 97/57 L 98 Nasal Cannula 04/24/23 13:00 90 18 106/62 L 97 Nasal Cannula 04/24/23 13:00 Nasal Cannula 04/24/23 12:05 Nasal Cannula 04/24/23 12:00 87 16 95/50 L 98 Nasal Cannula 04/24/23 11:15 97 Nasal Cannula 04/24/23 11:00 91 H 18 91/56 L 98 Nasal Cannula 04/24/23 11:00 Nasal Cannula O2 Flow Rate FiO2 04/25/23 09:45 04/25/23 09:45 04/25/23 09:45 4 04/25/23 09:07 04/25/23 07:52 04/25/23 07:30 35 04/25/23 07:00 04/25/23 06:20 04/25/23 06:20 04/25/23 06:20 35 04/25/23 06:20 35 04/25/23 06:00 04/25/23 05:00 04/25/23 06:37 04/25/23 05:00 04/25/23 04:00 04/25/23 04:00 04/25/23 04:00 04/25/23 03:00 04/25/23 02:40 04/25/23 02:00 04/24/23 21:30 35 04/25/23 02:31 04/25/23 02:30 04/25/23 01:00 04/25/23 01:00 04/25/23 00:00 04/25/23 00:00 04/25/23 00:00 04/25/23 00:00 04/24/23 20:00 04/24/23 23:30 04/24/23 23:00 04/24/23 22:35 04/24/23 22:00 04/24/23 21:00 4 04/24/23 21:00 4 04/24/23 20:00 4 04/24/23 21:43 4 36 04/24/23 21:43 04/24/23 21:42 04/24/23 20:00 4 04/24/23 19:00 04/24/23 19:00 4 04/24/23 17:40 4 04/24/23 18:00 4 04/24/23 17:00 4 04/24/23 16:00 04/24/23 16:00 4 04/24/23 16:00 4 04/24/23 16:17 4 04/24/23 15:00 4 04/24/23 15:00 4 04/24/23 15:26 04/24/23 14:35 04/24/23 14:35 04/24/23 12:00 04/24/23 14:00 4 04/24/23 13:00 4 04/24/23 13:00 4 04/24/23 12:05 4 04/24/23 12:00 4 04/24/23 11:15 4 04/24/23 11:00 4
--- NOTE | 2023-04-25 10:25 | PC.NURSE ---
0750 Critical lab value received. Plt 46. results repeated and verified back with . [address] Solitario face to face of lab results. 0902 Critical lab value received. Phos 1.7. results repeated and verified back with [address] Solitario face to face of lab results.
--- NOTE | 2023-04-25 12:31 | PC.NURSE ---
pt given small sips of water pt md request. pt tolerated well, no immediate aspiration noted, no change in pt vocal quality. it does not appear pt would tolerate large amounts of water or eating a meal due to lack of stamina.
--- NOTE | 2023-04-25 14:25 | PC.NURSE ---
tube feed rate increased to 40ml/hr r/t residual of 20ml at this time.
[2023-04-25 16:49] LABS: Acetaminophen 40 ug/ml (10-30)
--- NOTE | 2023-04-25 17:08 | PC.NURSE ---
[address] Solitario face to face that pt is having more episodes of yelling out in pain with little to no stimulation of patient. per dr solitario ok to given an unscheduled dose of gabapentin at this time. also notified that pt had a bm at this time. family is at bedside.
--- NOTE | 2023-04-25 22:05 | PC.NURSE ---
Vaso running at 0.01 at start of shift. 2200 BP 81/44, titrated up to 0.02
[2023-04-26] VITALS (31 sets, daily range): BP systolic 78–130; BP diastolic 44–71; PULSE 75–90; RESP 10–19; TEMP 36.4–37.6; O2SAT 91–100; BMI 25.0
--- NOTE | 2023-04-26 01:45 | PC.NURSE ---
Pt sat 81% on 3 L nc while asleep. Pt turned to 4 L nc sat 84%. Pt breathing through mouth. RT placed vent mask at 35% over nc , pt now sat mid 90s.
--- NOTE | 2023-04-26 05:51 | PC.NURSE ---
0400 Tube feed residual 240ml, tube feed held at this time.
--- NOTE | 2023-04-26 06:34 | PC.NURSE ---
Pt alert to person. Pt has received PRN pain medication 2x during shift due to yelling out in pain. Vaso is currently at 0.03, titrated per protocol t/o shift. NG tube to r nare at 60cm in place. Tube feeding continues to be held at this time, 0600 residual 200ml. Pt has had 3 BMs and 200ml measured UO and 2 unmeasured due to purewick not working correctly. Daughter is at bedside.
[2023-04-26 06:58] LABS: Basophils % 0.3 % (0.1-2.0); Eosinophils # 0.2 K/mm3 (0.0-0.4); Eosinophils % 1.1 % (0.1-12.0); Hematocrit 32.2 % (37.0-47.0); Hemoglobin 10.1 g/dL (12.2-16.2); Lymphocytes # 1.2 K/mm3 (0.7-4.5); Lymphocytes % 8.5 % (10-50); Mean Corpuscular HGB Conc 31.3 g/dL (31.8-35.4); Mean Corpuscular Hemoglobin 40.6 pg (27.0-31.2); Mean Corpuscular Volume 129.7 fl (81-99); Mean Platelet Volume 14.6 fl (7.4-10.4); Monocytes # 1.2 K/mm3 (0.1-1.0); Monocytes % 8.5 % (1.7-9.3); Neutrophils # 11.2 K/mm3 (1.8-7.8); Neutrophils % 81.5 % (37.0-80.0); Platelet Count 53 K/mm3 (142-424); Red Blood Count 2.49 M/mm3 (4.20-5.40); Red Cell Distribution Width 15.7 % (11.5-17.5); White Blood Count 13.8 K/mm3 (4.8-10.8)
[2023-04-26 07:07] LABS: Alanine Aminotransferase 70 U/L (12-78); Albumin Level 2.4 g/dl (3.5-5.0); Albumin/Globulin Ratio 0.8 (1.1-1.8); Alkaline Phosphatase 249 U/L (38-126); Anion Gap 11.2 mEq/L (5-15); Aspartate Amino Transferase 197 U/L (14-36); Bilirubin,Total 12.1 mg/dl (0.2-1.3); Blood Urea Nitrogen 40 mg/dl (7-17); Calcium 7.7 mg/dl (8.4-10.2); Carbon Dioxide 27 mmol/L (22.0-30.0); Chloride 108 mmol/L (98-107); Creatinine Clearance Estimated 67 mL/min (50-200); Estimated Glomerular Filt Rate 50 ml/min (>60); GFR (African American) 61 ML/MIN (>60); Glucose 114 mg/dl (74-100); Magnesium 1.5 mg/dl (1.6-2.3); Potassium 3.2 mmoL/L (3.5-5.1); Sodium 143 mmol/L (136-145); Total Protein,Serum 5.4 g/dl (6.3-8.2)
[2023-04-26 07:12] LABS: Phosphorous 1.8 mg/dl (2.5-4.5)
--- NOTE | 2023-04-26 07:32 | XR_ITS ---
FINAL REPORT CLINICAL HISTORY: dyspnea, increasing WBC, worsening PNA? COMPARISON: 04/23/2023 FINDINGS: SINGLE VIEW CHEST Cardiomegaly is present. The patient is status post median sternotomy. A nasogastric tube remains in place. There are worsening bilateral pulmonary opacities, which are worrisome for worsening pneumonia. There is no pneumothorax. IMPRESSION: Worsening bilateral pulmonary opacities, worrisome for worsening pneumonia. Reviewed, Interpreted and Dictated by Kristian Petersen III, MD Transcribed by Rufina Delgado Authenticated and [facility]
[2023-04-26 08:09] LABS: ABG Base Excess -0.6 mmol/L (-2.4-2.3); ABG HCO3 23.1 mmhg (22.0-26.0); ABG Oxygen Saturation 97 % (90-100); ABG PCO2 32.7 mmhg (35.0-45.0); ABG PH 7.47 mmol/L (7.35-7.45); ABG PO2 76.7 mmhg (80-100); ABG TCO2 24.1 mmhg (23-27)
[2023-04-26 08:10] LABS: Allen's Test YES; Oxygen 4LPM %; Source Right Radial
--- NOTE | 2023-04-26 08:19 | PC.NURSE ---
Pharmacy consulted over K Phosphorus medication. OK to administer both medications.
--- NOTE | 2023-04-26 08:52 | HMH.SLDYSPHA ---
Speech & Language Evaluation Speech/Language Dysphagia Evaluation Start: 04/26/23 08:33 Freq: ONCE Status: Active Protocol: Document 04/26/23 08:34 SANCHEZHAVENMIAMARY (Rec: 04/26/23 08:52 BIRDIE [id number]) Dysphagia Assess/Goals/Plan Assessment Date of Evaluation: 04/26/23 Evaluation Type Initial Certification Assessment/Problems Aspiration risk per MD order. Does Patient Qualify for Service Yes Qualify/Failure Comment Based on the results of the CSE, pt would benefit from continued diet texture analysis. Recommendations PHYSICIAN CERTIFICATION: The specified therapy services are required, authorized, and reviewed every 30 days. Pt will be seen # times/week 1 for # weeks 1 Diet Recommendations Mechanical Soft Liquid Type Recommendations Normal/Thin SL Swallow Guidelines Standard Aspiration Prec., Reflux precautions Dysphagia Swallow Precautions/Strategies Sitting Upright (90 deg),Small Bites and Sips,Alternate Liquids/Solids Place Food on Either side of Mouth Plan Anticipate reaching STG in # weeks 1 Anticipate reaching LTG in # weeks 1 Pt/Guardian verbally ack understanding Yes of dx/prognosis/goals Pt/Guardian verbally ack understanding Yes of/consent to tx prog G -code Required No STG-Other Comment/Non-Specific 1. Pt will tolerate trials of LRD with no overt s/sxs of aspiration on 100% of trials. Inspector Aide Goals Diet LRD with Liquids Thin Liquids Education Instructions provided Results of CSE and diet recommendations were discussed with pt, pt's family, care management, and nursing who all expressed understanding. Pt/Caregiver able to recall information Able to recall/restate Reinforcement needed No Speech & Language HPI History Present Illness Description of Patient Problem Ms. Tian is a 62 y.o. female presenting to [facility] with weakness, diarrhea, and poor p .o. intake. She has a medical hx of cirrhosis, alcoholism, tobacco use, COPD, completed stroke, and seizure disorder. She has a surgical history of a coronary artery bypass. Her current diet is NPO with an NG tube.
--- NOTE | 2023-04-26 09:33 | EXP.PULM.PN ---
Subjective *Date: 04/26/23 *Time: 10:28 Interval history: No acute respiratory vents overnight. Patient admits continued improvement in her respiratory status Pulmonology Exam Inpatient Vital signs and Labs for Last 24 Hours: Temp Pulse Resp BP Pulse Ox O2 Del Method O2 Flow Rate 97.7 F 83 12 93/53 L 98 Nasal Cannula 4 04/26/23 08:00 04/26/23 06:30 04/26/23 06:00 04/26/23 06:00 04/26/23 06:30 04/26/23 08:34 04/26/23 06:39 FiO2 40 04/26/23 06:30 Laboratory Results - last 24 hr 04/19/23 05:43: Acetaminophen 40 H 04/26/23 06:00: Specimen Source Right radial, O2 % 4lpm, ABG pH 7.47 H, ABG pCO2 32.7 L, ABG pO2 76.7 L, ABG HCO3 23.1, ABG Total CO2 24.1, ABG O2 Saturation 97, ABG Base Excess -0.6, Jah Test Yes 04/26/23 06:50: WBC 13.8 H D, RBC 2.49 L, Hgb 10.1 L, Hct 32.2 L, MCV 129.7 H, MCH 40.6 H*, MCHC 31.3 L, RDW 15.7, Plt Count 53 L, MPV 14.6 H, Neut % (Auto) 81.5 H, Lymph % (Auto) 8.5 L, [place] % (Auto) 8.5, Eos % (Auto) 1.1, Baso % (Auto) 0.3, Neut # (Auto) 11.2 H, Lymph # (Auto) 1.2, [place] # (Auto) 1.2 H, Eos # (Auto) 0.2, Baso # (Auto) 0.0, Sodium 143, Potassium 3.2 L, Chloride 108 H, Carbon Dioxide 27, Anion Gap 11.2, BUN 40 H, Creatinine 1.10 H, Estimated Creat Clear 67, Estimated GFR 50 L, Est GFR ( Amer) 61 D, Glucose 114 H, Calcium 7.7 L, Phosphorus 1.8 L, Magnesium 1.5 L D, Total Bilirubin 12.1 H*, AST 197 H, ALT 70, Alkaline Phosphatase 249 H, Total Protein 5.4 L, Albumin 2.4 L, Globulin 3.0, Albumin/Globulin Ratio 0.8 L I & O for Labs for Last 24 Hours: Intake & Output 04/23/23 04/24/23 04/25/23 04/26/23 23:59 23:59 23:59 23:59 Intake Total 1605.89 / 1845.89 1898.652 / 4438.316 9078.915 / 1866.915 654.77 / 654.77 Output Total 150 / 150 525 / 565 495 / 495 490 / 490 Balance 1455.89 / 1695.89 1373.652 / 2668.207 6907.915 / 1371.915 164.77 / 164.77 Weight 169 lb 0.49 oz 173 lb 8 oz 175 lb 175 lb 3.539 oz Microbiology Reports for the Last 24 Hours: Microbiology 04/19/23 10:52 Blood Blood Culture - Preliminary Escherichia coli Constitutional: Present severe distress Head: Present normocephalic and atraumatic ENT: Present normal exam and normal oropharynx Neck: Present normal inspection Respiratory: Present respiratory distress, rhonchi, crackles and diminished air movement; Absent wheezes or able to speak in complete sentences Cardiac: Present S1/S2, Tachycardia and radial pulses present GI: Present soft and distention; Absent tenderness or guarding Rectal (female): Present deferred (female): Present deferred Skin: Present intact; Absent cyanosis or jaundice Neuro: Present awake; Absent alert or oriented x 3 Extremities: Present normal inspection; Absent clubbing or cyanosis Psychiatric: Present normal affect and cooperative Assessment and Plan *Assessment and plan (1) Altered mental state: Status: Acute Qualifiers: Altered mental status type: somnolence Qualified Code(s): R40.0 - Somnolence Category: Medical Code(s): R41.82 - Altered mental status, unspecified (2) Acute respiratory failure with hypoxia and hypercarbia: Status: Acute Category: Medical Code(s): J96.01 - Acute respiratory failure with hypoxia; J96.02 - Acute respiratory failure with hypercapnia (3) Septic shock: Status: Acute Category: Medical Code(s): A41.9 - Sepsis, unspecified organism; R65.21 - Severe sepsis with septic shock Plan Ms. 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 intake. On presentation patient noted to irregular during this including hypokalemia, hypocalcemia hyperglycemia and ANDERS. Pulmonary function testing January 2023 no evidence of obstructive lung disease. Mild restriction noted. Severely reduced DLCO at 30%
--- NOTE | 2023-04-26 09:45 | PC.NURSE ---
Addendum entered by Sara Perez RN 04/26/23 09:58: gastric residual contents haley with scant dark sediment Original Note: instructed by MD Solitario to continue tubefeeds at goal rate of 50mL/hr regardless of residual amounts, pt had 240mL residual at am med pass; pulmocare tubefeedings resumed on pump at 50mL/hr with 100mL flush every 4 hours
--- NOTE | 2023-04-26 10:05 | PC.NURSE ---
bp 130/71, decreased vasopressin drip to 0.02units/hr
--- NOTE | 2023-04-26 10:06 | PC.NURSE ---
bp 130/71, decreased vasopressin drip to 0.02units/min
--- NOTE | 2023-04-26 10:47 | EXP.ACUTE.PN ---
Subjective *Date: 04/26/23 *Time: 16:47 Interval history: Daughter at bedside this morning. Patient alert and oriented. Able to interact in discussion. Discussed patient's liver disease with daughter at bedside and patient this morning. Discussed concerns for needing placement if she continues to get better and is able to discharge. Also discussed concerns for her liver disease and poor prognosis. She asked if she was dying. She is stable on 4 L at this time. Tolerating tube feeds. Complains of feeling some shortness of breath. Globally weak. Medical Exam Vital signs and Labs for Last 24 Hours: Vital Signs Temp Pulse Pulse Resp BP Pulse Ox O2 Del Method 04/26/23 10:45 82 04/26/23 10:45 81 04/26/23 10:45 98 Nasal Cannula 04/26/23 10:00 75 12 130/71 95 04/26/23 09:00 84 12 104/61 L 99 04/26/23 08:00 84 12 92/53 L 97 04/26/23 09:30 Nasal Cannula 04/26/23 08:34 Nasal Cannula 04/26/23 08:00 97.7 F 04/26/23 06:39 Nasal Cannula, Venturi Mask 04/26/23 06:30 83 04/26/23 06:30 82 04/26/23 06:30 98 Venturi Mask 04/26/23 06:00 83 12 93/53 L 95 Nasal Cannula, Venturi Mask 04/26/23 04:00 97 Nasal Cannula, Venturi Mask 04/26/23 05:15 87/49 L 04/26/23 05:00 82 14 78/51 L 95 Nasal Cannula, Venturi Mask 04/26/23 04:00 89 15 95/57 L 95 Non-Rebreather, Venturi Mask 04/26/23 05:00 Nasal Cannula, Venturi Mask 04/26/23 04:00 90 04/26/23 03:00 87 16 88/55 L 91 L Venturi Mask 04/26/23 02:56 Nasal Cannula, Venturi Mask 04/26/23 02:00 86 14 100/60 L 96 Simple Mask 04/26/23 00:00 90 04/26/23 02:49 80 04/26/23 02:48 81 04/26/23 00:00 98.1 F 04/26/23 01:00 89 12 93/54 L 94 L Nasal Cannula 04/26/23 01:00 Nasal Cannula 04/26/23 00:00 96 Nasal Cannula 04/26/23 00:00 86 97 Nasal Cannula 04/25/23 20:00 80 04/25/23 23:30 88/50 L 04/25/23 23:00 84 14 81/46 L 92 L Nasal Cannula 04/25/23 22:15 89/50 L 04/25/23 22:42 Nasal Cannula 04/25/23 21:00 Nasal Cannula 04/25/23 22:50 80 04/25/23 22:49 77 04/25/23 22:00 88 14 81/44 L 97 Nasal Cannula 04/25/23 21:00 90 13 89/53 L 98 Nasal Cannula 04/25/23 21:20 84 96 Nasal Cannula 04/25/23 20:00 82 12 95/50 L 100 Nasal Cannula 04/25/23 19:00 83 14 90/52 L 98 Nasal Cannula 04/25/23 17:30 84 18 87/52 L 99 Nasal Cannula 04/25/23 15:30 81 20 96/54 L 99 Nasal Cannula 04/25/23 16:52 89 18 93/57 L 97 Nasal Cannula 04/25/23 18:30 87 18 103/59 L 98 Nasal Cannula 04/25/23 18:45 Nasal Cannula 04/25/23 18:44 80 04/25/23 18:44 81 04/25/23 18:35 Nasal Cannula 04/25/23 17:00 Nasal Cannula 04/25/23 18:00 82 18 96/53 L 98 Nasal Cannula 04/25/23 17:00 82 18 96/51 L 100 Nasal Cannula 04/25/23 16:00 82 18 93/55 L 100 Nasal Cannula 04/25/23 15:00 84 20 95/54 L 99 Nasal Cannula 04/25/23 12:00 83 04/25/23 16:00 82 100 Nasal Cannula 04/25/23 16:00 99 Nasal Cannula 04/25/23 15:00 Nasal Cannula 04/25/23 16:00 98.6 F 04/25/23 14:30 80 20 90/54 L 99 Nasal Cannula 04/25/23 13:30 84 22 92/54 L 96 Nasal Cannula 04/25/23 14:00 86 20 92/55 L 99 Nasal Cannula 04/25/23 13:00 Nasal Cannula 04/25/23 13:21 87 04/25/23 13:21 84 04/25/23 13:21 98 Nasal Cannula 04/25/23 12:30 88 20 81/48 L 97 Nasal Cannula 04/25/23 13:00 85 20 88/57 L 98 Nasal Cannula 04/25/23 12:00 86 18 99/51 L 97 Nasal Cannula 04/25/23 12:25 85 99 Nasal Cannula 04/25/23 11:56 98.6 F 04/25/23 11:30 83 18 91/50 L 96 Nasal Cannula 04/25/23 11:20 Nasal Cannula 04/25/23 11:00 89 20 92/54 L 99 Nasal Cannula O2 Flow Rate FiO2 04/26/23 10:
--- NOTE | 2023-04-26 10:49 | SW/DCPLANNER ---
Addendum entered by [facility] 04/30/23 11:15: I have updated Kali kowalski/ [facility] that patient will discharge today. Addendum entered by [facility] 04/29/23 14:14: Kali kowalski/ [facility] stated that she can take this patient tomorrow once PO Vanc is completed. Dr Batres stated that patient will need two more doses of Vanc tomorrow (last dose at 1PM) then can discharge to [facility]. I have updated patient/family and nurse (Marcela). Addendum entered by [facility] 04/27/23 10:19: Kali kowalski/ [facility] is able to accept this patient as well. Patient's daughter prefers that patient discharge to [facility] once medically stable rather than [facility]. I have updated Pauline kowalski/ [facility]. Kali will be at [facility] today to complete paperwork w/ patient and family. Discharge date is unknown at this time. Addendum entered by [facility] 04/27/23 07:45: Pauline kowalski/ [facility] is able to accept this patient. I will continue to follow up with patient/family, MD and other facilities. Addendum entered by [facility] 04/26/23 15:26: Nancy kowalski/ [facility] has denied this patient. I will update patient/family and MD. Addendum entered by [facility] 04/26/23 15:24: [facility] is not able to accept this patient. The following facilities are still reviewing patient information: [facility], [facility], [facility] and [facility]. Original Note: I spoke with this patient and her daughter regarding plans once medically stable for discharge. PT/OT evaluated patient and recommended SNF level of care. Daughter stated that she is unable to care for patient at home at this time. Patient was not able to answer a majority of my questions this AM due to being in pain but daughter was able to assist. Daughter is agreeable for patient information to be faxed to the following facilities: [facility], [facility], [facility], [facility] and [facility]. I will continue to follow up with patient/family, MD and facilities. Per MD patient will be medically stable for discharge midweek pending no setbacks.
--- NOTE | 2023-04-26 11:47 | PC.NURSE ---
1130-bp 76/44 (54), lasix IV just given per new order on emar, increased vasopressin to 0.03units/min 1140-bp 80/45 (56)
--- NOTE | 2023-04-26 11:49 | PC.NURSE ---
courtesy tech note: pt is lying in bed resting with family at BS
--- NOTE | 2023-04-26 11:53 | PC.NURSE ---
1150-bp 76/46 (56), increased vasopressin drip to 0.04units/min
--- NOTE | 2023-04-26 11:54 | PC.NURSE ---
spoke with MD Solitario about pt's restless leg jerking and that pt constantly yelling out about legs hurting and jerking, MD to place order for requip
--- NOTE | 2023-04-26 12:30 | PC.NURSE ---
pt's oxygen sats 84-86% on 2LNC, increased to 3LNC, sats 90% on 3LNC
--- NOTE | 2023-04-26 12:51 | PC.NURSE ---
pt's oxygen sats 86% on 3LNC, pt is finally resting at this time; increased pt's oxygen to 4LNC and oxygen saturations back up to 92-96% on 4LNC
--- NOTE | 2023-04-26 13:15 | PC.NURSE ---
1250-bp 73/41 (51), updated MD Solitario that pt's bp has been soft since the keppra and lasix and that vasopressin is at 0.04units/min, giving midodrine at this time as well 1300-bp 85/48 (60) 1310-bp 106/60 (75)
--- NOTE | 2023-04-26 14:07 | PC.NURSE ---
1350-bp 112/62 (78), decreased vasopressin drip to 0.03units/min 1400-bp 120/70 (86), decreased vasopressin drip to 0.02units/min
--- NOTE | 2023-04-26 14:10 | PC.NURSE ---
pt swallows thin liquids well without any coughing, but when pt attempts to eat solid food (even pureed) she coughs immediately, so pt only attempted a few bites of lunch
--- NOTE | 2023-04-26 16:19 | PC.NURSE ---
changed tubefeeding bottle, free water bag, and tubing
[2023-04-27] VITALS (37 sets, daily range): BP systolic 82–152; BP diastolic 35–92; PULSE 60–93; RESP 14–18; TEMP 37–37.2; O2SAT 85–98; BMI 26.1
[2023-04-27 05:51] LABS: Basophils # 0.1 K/mm3 (0-0.2); Basophils % 0.5 % (0.1-2.0); Eosinophils # 0.1 K/mm3 (0.0-0.4); Eosinophils % 0.9 % (0.1-12.0); Hematocrit 31.7 % (37.0-47.0); Lymphocytes # 1.6 K/mm3 (0.7-4.5); Lymphocytes % 9.6 % (10-50); Mean Corpuscular HGB Conc 31.5 g/dL (31.8-35.4); Mean Corpuscular Volume 130.7 fl (81-99); Mean Platelet Volume 15.7 fl (7.4-10.4); Monocytes # 1.4 K/mm3 (0.1-1.0); Monocytes % 8.5 % (1.7-9.3); Neutrophils # 13.1 K/mm3 (1.8-7.8); Neutrophils % 80.4 % (37.0-80.0); Platelet Count 68 K/mm3 (142-424); Red Blood Count 2.42 M/mm3 (4.20-5.40); Red Cell Distribution Width 15.4 % (11.5-17.5); White Blood Count 16.3 K/mm3 (4.8-10.8)
[2023-04-27 05:52] LABS: Mean Corpuscular Hemoglobin 41.1 pg (27.0-31.2)
[2023-04-27 05:53] LABS: MANUAL DIFFERENTIAL MANUAL DIFFERENTIAL (MANUAL DIFF)
[2023-04-27 05:59] LABS: Chloride 103 mmol/L (98-107); Potassium 3.4 mmoL/L (3.5-5.1); Sodium 139 mmol/L (136-145)
[2023-04-27 06:02] LABS: Alanine Aminotransferase 76 U/L (12-78); Albumin Level 2.5 g/dl (3.5-5.0); Albumin/Globulin Ratio 0.8 (1.1-1.8); Alkaline Phosphatase 252 U/L (38-126); Anion Gap 9.4 mEq/L (5-15); Aspartate Amino Transferase 226 U/L (14-36); Bilirubin,Total 11.3 mg/dl (0.2-1.3); Blood Urea Nitrogen 42 mg/dl (7-17); Calcium 7.5 mg/dl (8.4-10.2); Carbon Dioxide 30 mmol/L (22.0-30.0); Creatinine Clearance Estimated 77 mL/min (50-200); Estimated Glomerular Filt Rate 73 ml/min (>60); GFR (African American) 88 ML/MIN (>60); Glucose 109 mg/dl (74-100); Total Protein,Serum 5.5 g/dl (6.3-8.2)
[2023-04-27 06:03] LABS: Magnesium 1.4 mg/dl (1.6-2.3); Phosphorous 2.2 mg/dl (2.5-4.5)
[2023-04-27 07:23] LABS: Lymphocytes % 11 % (10-50); Monocytes % 9 % (2-9); Neutrophils % 80 % (42-76); Nucleated Red Blood Cells 3; Total Cells Counted 100
[2023-04-27 07:25] LABS: Giant Platelets 1+; Macrocytosis 3+
[2023-04-27 07:26] LABS: Platelet Estimate Slight Decrease
[2023-04-27 07:27] LABS: Stomatocytes 1+; Target Cells 1+
[2023-04-27 07:32] LABS: Poikilocytosis 1+
--- NOTE | 2023-04-27 08:52 | EXP.PULM.PN ---
Subjective *Date: 04/27/23 *Time: 09:45 Interval history: No acute respiratory events overnight. Questionable aspiration event. Pulmonology Exam Inpatient Vital signs and Labs for Last 24 Hours: Temp Pulse Resp BP Pulse Ox O2 Del Method O2 Flow Rate 98.9 F 84 18 93/50 L 95 Nasal Cannula 3 04/27/23 04:00 04/27/23 08:00 04/27/23 08:00 04/27/23 08:00 04/27/23 08:00 04/27/23 08:00 04/27/23 08:00 FiO2 40 04/26/23 06:30 Laboratory Results - last 24 hr 04/27/23 05:25: WBC 16.3 H, RBC 2.42 L, Hgb 10.0 L, Hct 31.7 L, MCV 130.7 H, MCH 41.1 H*, MCHC 31.5 L, RDW 15.4, Plt Count 68 L D, MPV 15.7 H, Neut % (Auto) 80.4 H, Lymph % (Auto) 9.6 L, [place] % (Auto) 8.5, Eos % (Auto) 0.9, Baso % (Auto) 0.5, Neut # (Auto) 13.1 H, Lymph # (Auto) 1.6, [place] # (Auto) 1.4 H, Eos # (Auto) 0.1, Baso # (Auto) 0.1, Total Counted 100, Neutrophils % (Manual) 80 H, Lymphocytes % (Manual) 11, Monocytes % (Manual) 9, Nucleated RBCs 3, Platelet Estimate Slight decrease, Giant Platelets 1+, Poikilocytosis 1+, Macrocytosis 3+, Target Cells 1+, Stomatocytes 1+, Sodium 139, Potassium 3.4 L, Chloride 103, Carbon Dioxide 30, Anion Gap 9.4, BUN 42 H, Creatinine 0.80 D, Estimated Creat Clear 77, Estimated GFR 73, Est GFR ( Amer) 88 D, Glucose 109 H, Calcium 7.5 L, Phosphorus 2.2 L, Magnesium 1.4 L, Total Bilirubin 11.3 H*, AST 226 H, ALT 76, Alkaline Phosphatase 252 H, Total Protein 5.5 L, Albumin 2.5 L, Globulin 3.0, Albumin/Globulin Ratio 0.8 L I & O for Labs for Last 24 Hours: Intake & Output 07/08/23 07/09/23 07/10/23 07/11/23 23:59 23:59 23:59 23:59 Intake Total 1898.652 / 3069.220 4360.915 / 3279.326 2815.528 / 3307.528 600 / 600 Output Total 525 / 565 495 / 495 1365 / 1365 350 / 350 Balance 1373.652 / 0848.317 8886.915 / 2681.492 1975.528 / 1942.528 250 / 250 Weight 173 lb 8 oz 175 lb 175 lb 3.539 oz 182 lb 9 oz Microbiology Reports for the Last 24 Hours: Microbiology 04/22/23 07:45 Blood Blood Culture - Final NO GROWTH AFTER 5 DAYS 04/22/23 07:50 Blood Blood Culture - Final NO GROWTH AFTER 5 DAYS Constitutional: Present moderate distress Head: Present normocephalic and atraumatic ENT: Present normal exam and normal oropharynx Neck: Present normal inspection Respiratory: Present respiratory distress, rhonchi, crackles and diminished air movement; Absent wheezes or able to speak in complete sentences Cardiac: Present S1/S2, Tachycardia and radial pulses present GI: Present soft and distention; Absent tenderness or guarding Rectal (female): Present deferred (female): Present deferred Skin: Present intact; Absent cyanosis or jaundice Neuro: Present awake; Absent alert or oriented x 3 Extremities: Present normal inspection; Absent clubbing or cyanosis Psychiatric: Present normal affect and cooperative Assessment and Plan *Assessment and plan (1) Altered mental state: Status: Acute Qualifiers: Altered mental status type: somnolence Qualified Code(s): R40.0 - Somnolence Category: Medical Code(s): R41.82 - Altered mental status, unspecified (2) Acute respiratory failure with hypoxia and hypercarbia: Status: Acute Category: Medical Code(s): J96.01 - Acute respiratory failure with hypoxia; J96.02 - Acute respiratory failure with hypercapnia (3) Shock: Status: Acute Category: Medical Code(s): R57.9 - Shock, unspecified Plan Ms. 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 intake. On presentation patient noted to irregular during this including hypokalemia, hypocalcemia hyperglycemia and ANDERS. Pulmonary function testing January 2023 no evidence of obstructive lung disease. Mild restriction noted. Severely reduced DLCO at
--- NOTE | 2023-04-27 09:30 | DIET.NUTRFU ---
Reviewed oral diet and TF regimen with nursing. [employer]IAN completed a eval and upgraded diet to MSOFT ground with thin liquids. Nursing noted yesterday patient had issues tolerating solids with increased coughing. Family also reported coughing with ice chips and vomiting last night. Continues on TF to help meet nutritional needs until oral diet tolerated. Was running at goal rate of 50ml/hr through night, decreased to 30ml/hr to help with oral diet tolerance. She is also on protonix. Patient continues on lactulose with BM noted daily. Her urine output increased yesterday to 1365ml with lasix IV provided. Labs reviewed, hydration WNL, liver enzymes continue to be elevated secondary to dx. Spoke to [employer]ICE LIBRARIAN and they well continue to work with patient on safe po diet.
--- NOTE | 2023-04-27 09:46 | PC.NURSE ---
Tube decreased to 30 ml/hr per Nutrition consultation. Annangi rounded at bedside. O2 decreased to 2L NC. Keep O2 no more than 95% Via NC.
--- NOTE | 2023-04-27 10:02 | PC.NURSE ---
Vasopressin titrated to 0.01 units/min. BP currently 104/63.
--- NOTE | 2023-04-27 11:01 | FL_ITS ---
FINAL REPORT CLINICAL HISTORY: FT 3:40 difficulty swallowing FINDINGS: MODIFIED BARIUM SWALLOW History: Dysphagia FINDINGS: Fluoroscopy was provided for the speech pathologist to evaluate the swallowing mechanism. The patient was given several different consistencies of barium while the swallow was visualized fluoroscopically. The report of the speech pathologist should be consulted prior to making dietary decisions. FLUOROSCOPY TIME: 3 minutes 40 seconds IMPRESSION: Modified barium swallow under fluoroscopic guidance. Please see the report of the speech pathologist for Dietary recommendations. Films reviewed , interpreted and dictated by Dr. Petersen Transcribed by Laz Song PA-C. Reviewed, Interpreted and Dictated by Kristian Petersen III, MD Transcribed by SHERRY Ward Authenticated and [facility]
--- NOTE | 2023-04-27 11:45 | PC.NURSE ---
Courtesy Round Patient awake and laying in bed with visitors at bedside. Trash and linens emptied .Call light within reach.
--- NOTE | 2023-04-27 14:46 | EXP.PN ---
Subjective *Date: 04/27/23 *Time: 17:48 Interval history: No acute events overnight. Denies chest pain and abdominal pain. She does complain of restless legs. Exam Data for Last 24 hours Vital signs and Labs for Last 24 Hours: Temp Pulse Resp BP Pulse Ox O2 Del Method O2 Flow Rate 98.8 F 87 18 96/63 L 91 L Nasal Cannula 2 04/27/23 11:05 04/27/23 14:00 04/27/23 14:00 04/27/23 14:00 04/27/23 14:00 04/27/23 14:00 04/27/23 14:00 FiO2 40 04/26/23 06:30 Laboratory Results - last 24 hr 04/27/23 05:25: WBC 16.3 H, RBC 2.42 L, Hgb 10.0 L, Hct 31.7 L, MCV 130.7 H, MCH 41.1 H*, MCHC 31.5 L, RDW 15.4, Plt Count 68 L D, MPV 15.7 H, Neut % (Auto) 80.4 H, Lymph % (Auto) 9.6 L, [place] % (Auto) 8.5, Eos % (Auto) 0.9, Baso % (Auto) 0.5, Neut # (Auto) 13.1 H, Lymph # (Auto) 1.6, [place] # (Auto) 1.4 H, Eos # (Auto) 0.1, Baso # (Auto) 0.1, Total Counted 100, Neutrophils % (Manual) 80 H, Lymphocytes % (Manual) 11, Monocytes % (Manual) 9, Nucleated RBCs 3, Platelet Estimate Slight decrease, Giant Platelets 1+, Poikilocytosis 1+, Macrocytosis 3+, Target Cells 1+, Stomatocytes 1+, Sodium 139, Potassium 3.4 L, Chloride 103, Carbon Dioxide 30, Anion Gap 9.4, BUN 42 H, Creatinine 0.80 D, Estimated Creat Clear 77, Estimated GFR 73, Est GFR ( Amer) 88 D, Glucose 109 H, Calcium 7.5 L, Phosphorus 2.2 L, Magnesium 1.4 L, Total Bilirubin 11.3 H*, AST 226 H, ALT 76, Alkaline Phosphatase 252 H, Total Protein 5.5 L, Albumin 2.5 L, Globulin 3.0, Albumin/Globulin Ratio 0.8 L I & O for Last 24 hours: Intake & Output 04/24/23 04/25/23 04/26/23 04/27/23 23:59 23:59 23:59 23:59 Intake Total 1898.652 / 9926.424 6255.915 / 9597.969 9010.528 / 3307.528 813 / 813 Output Total 525 / 565 495 / 495 1365 / 1365 600 / 600 Balance 1373.652 / 1004.318 2170.915 / 6929.310 6600.528 / 1942.528 213 / 213 Weight 78.698 kg 79.379 kg 79.479 kg 82.809 kg Microbiology Reports for the Last 24 Hours: Microbiology 04/19/23 10:52 Blood Blood Culture - Final Escherichia coli 04/22/23 07:45 Blood Blood Culture - Final NO GROWTH AFTER 5 DAYS 04/22/23 07:50 Blood Blood Culture - Final NO GROWTH AFTER 5 DAYS Constitutional Constitutional: no acute distress *Routine HEENT Exam Head: Present normocephalic Eye: Present EOMI and PERRL ENT: Present mucous membranes moist *Routine Neck Exam Neck: Present supple; Absent lymphadenopathy *Routine Respiratory Exam Respiratory: Present CTA bilaterally *Routine Cardiovascular Exam Cardiovascular: Present RRR *Routine Abdominal Exam Abdominal: Present soft and normoactive bowel sounds; Absent tenderness *Routine Extremities Exam Extremities: Absent cyanosis, clubbing or edema *Routine Skin Exam Skin: Present warm; Absent rash *Routine Neurological Exam Neurological: Present alert and oriented X3 Assessment and Plan *Assessment and plan (1) Acute respiratory failure with hypoxemia: Status: Acute Category: Medical Code(s): J96.01 - Acute respiratory failure with hypoxia (2) Pneumonia: Status: Acute Qualifiers: Pneumonia type: due to unspecified organism Category: Medical Code(s): J18.9 - Pneumonia, unspecified organism (3) C. difficile diarrhea: Status: Acute Category: Medical Code(s): A04.72 - Enterocolitis due to Clostridium difficile, not specified as recurrent (4) Hypophosphatemia: Status: Acute Category: Medical Code(s): E83.39 - Other disorders of phosphorus metabolism (5) Cirrhosis: Status: Acute Qualifiers: Hepatic cirrhosis type: alcoholic cirrhosis Ascites presence: with ascites Qualified Code(s): K70.31 - Alcoholic cirrhosis of liver with ascites Category: Medical Code(s): K74.60 - Unspecified cirrhosis of liver (6) Hyperbilirubinemia: Status: Acute Category: M
--- NOTE | 2023-04-27 15:05 | HMH.SLMBS2 ---
Speech & Language Evaluation Speech/Language Mod Barium Swallow Start: 04/27/23 11:01 Freq: ONCE Status: Complete Protocol: Document 04/27/23 14:27 BIRDIE (Rec: 04/27/23 15:02 BIRDIE [id number]) General Information General Current Food Consistency Mechanical Soft,Thin Liquids Dentition Edentulous Oxygen Status Nasal Cannula Facial Symmetry Symmetrical Patient Orientation Person Ability to Follow Directions Fair Communication Ability Moderate Impairment MBS Recommendations Diet Dietary Recommendations Pureed,Frazer Liquids Treatment/Strategies Strategy/Precaution Recommend Sitting Upright (90 deg),Small Bites and Sips,Alternate Liquids/Solids Mod Barium Swallow Impressions Summary and Impressions Oral Phase Impression Moderate Impairment Oral Phase Summary Moderate impairment of the oral phase of swallow. Mild anterior spillage noted on thin liquid trials with cup 2' reduced back of tongue control. Prolonged mastication during mech soft trial. Premature spillage to the pyriform sinuses noted on thin liquid trial with straw and cup. AP transit was not timely or effective 2' lack of tongue strength and control, so barium tablet was unable to be transited and had to be mechanically removed. Minimal oral residue noted on all trials. Pharyngeal Phase Impression Moderate Impairment Pharyngeal Phase Summary Moderate impairment of pharyngeal phase of swallow. No aspiration was noted on any trials. Penetration noted on thin liquid trials with cup and straw which contacted the vocal folds and dit not completely clear the airway upon completion of the pharyngeal swallow. Flash penetration noted with nectar and honey, and all penetrated material cleared the airway upon completion of the pharyngeal swallow. Pharyngeal
--- NOTE | 2023-04-27 16:33 | PC.NURSE ---
Vasopressin placed on standby. BP 98/59.
--- NOTE | 2023-04-27 19:00 | PC.NURSE ---
Vasopressin was restarted due to hypotension. Currently infusing at 0.01 units/min. Pt is tolerating PO intake and crushed medications in applesauce.
--- NOTE | 2023-04-27 20:16 | PC.NURSE ---
Vaso running at 0.01 at start of shift. Vaso put on standby at 2015 vaso restarted at 0.01 at 2045 due to BP 82/48
--- NOTE | 2023-04-27 23:20 | PC.NURSE ---
Pt doing well on RA with sats >90% until fell asleep and sat dropped to mid 80s. Pt placed back on 2 L nc at this time.
[2023-04-28] VITALS (41 sets, daily range): BP systolic 87–108; BP diastolic 42–72; PULSE 76–94; RESP 13–20; TEMP 36.3–37.2; O2SAT 84–98; BMI 26.1
--- NOTE | 2023-04-28 06:00 | XR_ITS ---
PROCEDURE INFORMATION: Exam: XR Chest Exam date and time: 04/28/2023 5:11 AM Age: 62 years old Clinical indication: Shortness of breath; Patient HX: Hypoxia TECHNIQUE: Imaging protocol: Radiologic exam of the chest. Views: 1 view. COMPARISON: CR XR CHEST PORTABLE 04/26/2023 8:01 AM FINDINGS: Tubes, catheters and devices: An enteric catheter is noted extending to the abdomen, tip not imaged. Lungs: There is right basilar atelectasis. There is opacity at the left lung base which may represent effusion and/or parenchymal disease. These findings are superimposed on diffusely increased interstitial markings. Pleural spaces: Unremarkable. No pleural effusion. No pneumothorax. Heart/Mediastinum: Unremarkable. No cardiomegaly. Bones/joints: The bones are osteopenic. The patient is post sternotomy with fracture of several sternal wires. IMPRESSION: Overall no significant change from the prior study.
[2023-04-28 06:01] LABS: Basophils # 0.1 K/mm3 (0-0.2); Basophils % 0.8 % (0.1-2.0); Eosinophils # 0.1 K/mm3 (0.0-0.4); Eosinophils % 0.7 % (0.1-12.0); Hematocrit 30.9 % (37.0-47.0); Hemoglobin 9.5 g/dL (12.2-16.2); Lymphocytes # 1.5 K/mm3 (0.7-4.5); Lymphocytes % 9.9 % (10-50); Mean Corpuscular HGB Conc 30.7 g/dL (31.8-35.4); Mean Corpuscular Hemoglobin 39.7 pg (27.0-31.2); Mean Corpuscular Volume 129.3 fl (81-99); Mean Platelet Volume 13.6 fl (7.4-10.4); Monocytes # 1.5 K/mm3 (0.1-1.0); Monocytes % 10.1 % (1.7-9.3); Neutrophils # 11.5 K/mm3 (1.8-7.8); Neutrophils % 78.3 % (37.0-80.0); Platelet Count 89 K/mm3 (142-424); Red Blood Count 2.39 M/mm3 (4.20-5.40); Red Cell Distribution Width 15.6 % (11.5-17.5); White Blood Count 14.7 K/mm3 (4.8-10.8)
[2023-04-28 06:09] LABS: Chloride 104 mmol/L (98-107); Potassium 3.7 mmoL/L (3.5-5.1); Sodium 139 mmol/L (136-145)
[2023-04-28 06:11] LABS: Alanine Aminotransferase 82 U/L (12-78); Alkaline Phosphatase 205 U/L (38-126); Anion Gap 8.7 mEq/L (5-15); Aspartate Amino Transferase 264 U/L (14-36); Bilirubin,Total 9.9 mg/dl (0.2-1.3); Blood Urea Nitrogen 37 mg/dl (7-17); Carbon Dioxide 30 mmol/L (22.0-30.0); Creatinine Clearance Estimated 77 mL/min (50-200); Estimated Glomerular Filt Rate 85 ml/min (>60); GFR (African American) 103 ML/MIN (>60)
[2023-04-28 06:12] LABS: Albumin Level 2.4 g/dl (3.5-5.0); Albumin/Globulin Ratio 0.8 (1.1-1.8); Calcium 7.6 mg/dl (8.4-10.2); Glucose 114 mg/dl (74-100); Total Protein,Serum 5.4 g/dl (6.3-8.2)
[2023-04-28 06:16] LABS: Magnesium 1.4 mg/dl (1.6-2.3)
--- NOTE | 2023-04-28 06:44 | PC.NURSE ---
Pt a/o x4. Pt has c/o BLE pain bi to neuropathy and leg movement. 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 Pt has been snacking t/o night and drinking well. Tolerating pureed diet with nectar thick liquids well. 1 large BM noted this shift. 515ml measured urine output and 1 unmeasured urination, urine is dark pey[place] in color. Family is at bedside, call light within reach.
--- NOTE | 2023-04-28 09:00 | DIET.NUTRFU ---
Addendum entered by Kala Singh RD, LD 04/28/23 13:58: NG tube was removed. Saw during lunch meal rounds, she consumed couple bites of green beans, mashed potatoes and chicken. Reviewed dinner choices and she requested banana pudding, notified kitchen. She would also like pepsi, notified EVENT MARKETING SPECIALIST and will trial her with nectar thick pepsi. Original Note: Spoke to patient this AM, she was able to recall her breakfast intake of pureed eggs and oatmeal and apple juice. EVENT MARKETING SPECIALIST completed a MBSS 04/27 and recommended pureed with nectar thick liquids. Nursing noted 50% consumed for both dinner last night and breakfast today. She is also taking her pills orally, crushed in applesauce. Continues to have NG in place, no TF running at this time. last dose of lasix 04/26, +2 edema still noted to R side. Urine output of 800ml, 712BM x2 noted today, continues on lactulose and ABT tx for C-diff. Reviewed labs, liver enzymes are increasing again secondary to cirrhosis.
[2023-04-28 09:08] LABS: Iron 143 ug/dL (37-170)
--- NOTE | 2023-04-28 09:08 | EXP.PULM.PN ---
Subjective *Date: 04/28/23 *Time: 09:52 Interval history: No acute respiratory vents overnight. Patient admits continued improvement in her respiratory status with complaints of cough and diffuse body aches. Pulmonology Exam Inpatient Vital signs and Labs for Last 24 Hours: Temp Pulse Resp BP Pulse Ox O2 Del Method O2 Flow Rate 97.9 F 80 16 98/42 L 90 L Room Air 3 04/28/23 07:41 04/28/23 08:00 04/28/23 07:00 04/28/23 07:00 04/28/23 07:00 04/28/23 07:00 04/28/23 06:05 FiO2 40 04/26/23 06:30 Laboratory Results - last 24 hr 04/28/23 05:50: WBC 14.7 H, RBC 2.39 L, Hgb 9.5 L, Hct 30.9 L, MCV 129.3 H, MCH 39.7 H, MCHC 30.7 L, RDW 15.6, Plt Count 89 L D, MPV 13.6 H, Neut % (Auto) 78.3, Lymph % (Auto) 9.9 L, [place] % (Auto) 10.1 H, Eos % (Auto) 0.7, Baso % (Auto) 0.8, Neut # (Auto) 11.5 H, Lymph # (Auto) 1.5, [place] # (Auto) 1.5 H, Eos # (Auto) 0.1, Baso # (Auto) 0.1, Sodium 139, Potassium 3.7, Chloride 104, Carbon Dioxide 30, Anion Gap 8.7, BUN 37 H, Creatinine 0.70, Estimated Creat Clear 77, Estimated GFR 85, Est GFR ( Amer) 103, Glucose 114 H, Calcium 7.6 L, Phosphorus 2.0 L, Magnesium 1.4 L, Total Bilirubin 9.9 H, AST 264 H, ALT 82 H, Alkaline Phosphatase 205 H, Total Protein 5.4 L, Albumin 2.4 L, Globulin 3.0, Albumin/Globulin Ratio 0.8 L I & O for Labs for Last 24 Hours: Intake & Output 04/25/23 04/26/23 04/27/23 04/28/23 23:59 23:59 23:59 23:59 Intake Total 1866.915 / 4220.009 8155.528 / 3307.528 1601.439 / 1601.439 766.15 / 766.15 Output Total 495 / 495 1365 / 1365 800 / 860 315 / 315 Balance 1371.915 / 3550.660 5455.528 / 1942.528 801.439 / 741.439 451.15 / 451.15 Weight 175 lb 175 lb 3.539 oz 182 lb 9 oz 182 lb 9.001 oz Microbiology Reports for the Last 24 Hours: Microbiology 04/19/23 10:52 Blood Blood Culture - Final Escherichia coli 04/22/23 07:45 Blood Blood Culture - Final NO GROWTH AFTER 5 DAYS 04/22/23 07:50 Blood Blood Culture - Final NO GROWTH AFTER 5 DAYS Constitutional: Present moderate distress Head: Present normocephalic and atraumatic ENT: Present normal exam and normal oropharynx Neck: Present normal inspection Respiratory: Present respiratory distress, rhonchi, crackles and diminished air movement; Absent wheezes or able to speak in complete sentences Cardiac: Present S1/S2, Tachycardia and radial pulses present GI: Present soft and distention; Absent tenderness or guarding Rectal (female): Present deferred (female): Present deferred Skin: Present intact; Absent cyanosis or jaundice Neuro: Present awake; Absent alert or oriented x 3 Extremities: Present normal inspection and edema; Absent clubbing or cyanosis Psychiatric: Present normal affect and cooperative Assessment and Plan *Assessment and plan (1) Altered mental state: Status: Acute Qualifiers: Altered mental status type: somnolence Qualified Code(s): R40.0 - Somnolence Category: Medical Code(s): R41.82 - Altered mental status, unspecified (2) Acute respiratory failure with hypoxia and hypercarbia: Status: Acute Category: Medical Code(s): J96.01 - Acute respiratory failure with hypoxia; J96.02 - Acute respiratory failure with hypercapnia (3) Shock: Status: Acute Category: Medical Code(s): R57.9 - Shock, unspecified Plan Ms. 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 intake. On presentation patient noted to irregular during this including hypokalemia, hypocalcemia hyperglycemia and ANDERS. Pulmonary function testing January 2023 no evidence of obstructive lung disease. Mild restriction noted. Severely reduced DLCO at 30% predicted. Patient electrolytes has been repleted
[2023-04-28 09:17] LABS: Total Iron Binding Capacity 210 ug/dL (265-497)
--- NOTE | 2023-04-28 09:36 | EXP.PN ---
Subjective *Date: 04/28/23 *Time: 16:25 Interval history: She is saturating 92% on RA. CBC is with 14K wbcs, decreaced from 16k CMP with cr 0.7, decreased from 0.8 Phosphoros is 2.0 mg is 1.4 calcium is 7.6 iron is 143, iron saturation is 68% t. bili is 9.8, decreased from 11.3, ast is 264, increased from 226. alt is 82 increased from 76. CXR - Overall no significant change from the prior study. Exam Data for Last 24 hours Vital signs and Labs for Last 24 Hours: Temp Pulse Resp BP Pulse Ox O2 Del Method O2 Flow Rate 97.9 F 80 16 98/42 L 92 L Room Air 2 04/28/23 07:41 04/28/23 08:00 04/28/23 07:00 04/28/23 07:00 04/28/23 07:45 04/28/23 09:00 04/28/23 07:45 FiO2 40 04/26/23 06:30 Laboratory Results - last 24 hr 04/28/23 05:50: WBC 14.7 H, RBC 2.39 L, Hgb 9.5 L, Hct 30.9 L, MCV 129.3 H, MCH 39.7 H, MCHC 30.7 L, RDW 15.6, Plt Count 89 L D, MPV 13.6 H, Neut % (Auto) 78.3, Lymph % (Auto) 9.9 L, [place] % (Auto) 10.1 H, Eos % (Auto) 0.7, Baso % (Auto) 0.8, Neut # (Auto) 11.5 H, Lymph # (Auto) 1.5, [place] # (Auto) 1.5 H, Eos # (Auto) 0.1, Baso # (Auto) 0.1, Sodium 139, Potassium 3.7, Chloride 104, Carbon Dioxide 30, Anion Gap 8.7, BUN 37 H, Creatinine 0.70, Estimated Creat Clear 77, Estimated GFR 85, Est GFR ( Amer) 103, Glucose 114 H, Calcium 7.6 L, Phosphorus 2.0 L, Magnesium 1.4 L, Iron 143, TIBC 210 L, Iron Saturation 68.12532 H, Total Bilirubin 9.9 H, AST 264 H, ALT 82 H, Alkaline Phosphatase 205 H, Total Protein 5.4 L, Albumin 2.4 L, Globulin 3.0, Albumin/Globulin Ratio 0.8 L I & O for Last 24 hours: Intake & Output 04/25/23 04/26/23 04/27/23 04/28/23 23:59 23:59 23:59 23:59 Intake Total 1866.915 / 2378.799 3961.528 / 3307.528 1601.439 / 1601.439 766.15 / 766.15 Output Total 495 / 495 1365 / 1365 800 / 860 315 / 315 Balance 1371.915 / 0437.042 2209.528 / 1942.528 801.439 / 741.439 451.15 / 451.15 Weight 79.379 kg 79.479 kg 82.809 kg 82.809 kg Microbiology Reports for the Last 24 Hours: Microbiology 04/19/23 10:52 Blood Blood Culture - Final Escherichia coli 04/22/23 07:45 Blood Blood Culture - Final NO GROWTH AFTER 5 DAYS 04/22/23 07:50 Blood Blood Culture - Final NO GROWTH AFTER 5 DAYS Constitutional Constitutional: no acute distress *Routine HEENT Exam Head: Present normocephalic Eye: Present EOMI and PERRL ENT: Present mucous membranes moist *Routine Neck Exam Neck: Present supple; Absent lymphadenopathy *Routine Respiratory Exam Respiratory: Present CTA bilaterally *Routine Cardiovascular Exam Cardiovascular: Present RRR *Routine Abdominal Exam Abdominal: Present soft and normoactive bowel sounds; Absent tenderness *Routine Extremities Exam Extremities: Absent cyanosis, clubbing or edema *Routine Skin Exam Skin: Present warm; Absent rash *Routine Neurological Exam Neurological: Present alert and oriented X3 Assessment and Plan *Assessment and plan (1) Acute respiratory failure with hypoxemia: Status: Acute Category: Medical Code(s): J96.01 - Acute respiratory failure with hypoxia (2) Pneumonia: Status: Acute Qualifiers: Pneumonia type: due to unspecified organism Category: Medical Code(s): J18.9 - Pneumonia, unspecified organism (3) C. difficile diarrhea: Status: Acute Category: Medical Code(s): A04.72 - Enterocolitis due to Clostridium difficile, not specified as recurrent (4) Hypophosphatemia: Status: Acute Category: Medical Code(s): E83.39 - Other disorders of phosphorus metabolism (5) Cirrhosis: Status: Acute Qualifiers: Ascites presence: with ascites Hepatic cirrhosis type: alcoholic cirrhosis Qualified Code(s): K70.31 - Alcoholic cirrhosis of liver with ascites Category: Medical Code(s): K74.60 - Unspecified cirrhosis of liver (6) Hyperbi
[2023-04-28 09:44] LABS: Ferritin 760 ng/ml (11.1-264)
--- NOTE | 2023-04-28 10:11 | PC.NURSE ---
[address] Batres face to face. notified him that pt received 0900 dose of gabapentin at 0600. pt still having pain in ble. ok per Dr Batres to give gabapentin 100mg as scheduled at this time.
--- NOTE | 2023-04-28 11:14 | PC.NURSE ---
At start of shift pt vasopressin was infusing 0.01 units/min 1030 vasopressing drip stopped r/t bp 95/58 (70)
--- NOTE | 2023-04-28 11:25 | PC.NURSE ---
1120 NG tube removed at this time per md orders. pt tolerating po intake well. pt tolerated removal well.
--- NOTE | 2023-04-28 14:33 | PC.NURSE ---
[address] Batres via phone that pt has remained stable off of vasopressin drip since approx. 1030. pt care downgraded to stepdown at this time.
[2023-04-29] VITALS (22 sets, daily range): BP systolic 87–126; BP diastolic 43–81; PULSE 74–91; RESP 14–20; TEMP 36.5–36.7; O2SAT 84–97; BMI 26.3
--- NOTE | 2023-04-29 05:48 | PC.NURSE ---
Pt has done well t/o shift. Vaso gtt remains off, BP MAP has remained >63. Pt has done well on RA with sats in mid 90s, only needing 2 L nc while in deep sleep. Pt has had 3 liquid BMs t/o shift. No c/o voiced to staff. Call light within reach.
[2023-04-29 07:02] LABS: Anion Gap 6.9 mEq/L (5-15); Blood Urea Nitrogen 27 mg/dl (7-17); Carbon Dioxide 30 mmol/L (22.0-30.0); Chloride 106 mmol/L (98-107); Potassium 3.9 mmoL/L (3.5-5.1); Sodium 139 mmol/L (136-145)
[2023-04-29 07:03] LABS: Aspartate Amino Transferase 264 U/L (14-36); Bilirubin,Total 8.7 mg/dl (0.2-1.3); Calcium 7.9 mg/dl (8.4-10.2); Creatinine Clearance Estimated 78 mL/min (50-200); Estimated Glomerular Filt Rate 85 ml/min (>60); GFR (African American) 103 ML/MIN (>60); Glucose 105 mg/dl (74-100)
[2023-04-29 07:04] LABS: Alanine Aminotransferase 84 U/L (12-78); Albumin Level 2.3 g/dl (3.5-5.0); Albumin/Globulin Ratio 0.7 (1.1-1.8); Alkaline Phosphatase 197 U/L (38-126); Globulin 3.2 g/dL (1.3-3.2); Total Protein,Serum 5.5 g/dl (6.3-8.2)
[2023-04-29 07:07] LABS: White Blood Count 13.4 K/mm3 (4.8-10.8)
[2023-04-29 07:08] LABS: Hematocrit 33.1 % (37.0-47.0); Hemoglobin 9.9 g/dL (12.2-16.2); Mean Corpuscular Hemoglobin 38.9 pg (27.0-31.2); Mean Corpuscular Volume 129.7 fl (81-99); Mean Platelet Volume 13.9 fl (7.4-10.4); Neutrophils % 76.7 % (37.0-80.0); Platelet Count 102 K/mm3 (142-424); Red Blood Count 2.55 M/mm3 (4.20-5.40); Red Cell Distribution Width 15.3 % (11.5-17.5)
[2023-04-29 07:09] LABS: Basophils % 0.5 % (0.1-2.0); Eosinophils % 0.6 % (0.1-12.0); Lymphocytes % 12.1 % (10-50); Monocytes % 10.1 % (1.7-9.3); Neutrophils # 10.3 K/mm3 (1.8-7.8)
[2023-04-29 07:10] LABS: Basophils # 0.1 K/mm3 (0-0.2); Eosinophils # 0.1 K/mm3 (0.0-0.4); Lymphocytes # 1.6 K/mm3 (0.7-4.5); Monocytes # 1.4 K/mm3 (0.1-1.0)
[2023-04-29 07:26] LABS: Magnesium 1.4 mg/dl (1.6-2.3); Phosphorous 2.1 mg/dl (2.5-4.5)
--- NOTE | 2023-04-29 09:09 | EXP.PULM.PN ---
Subjective *Date: 04/29/23 *Time: 09:43 Interval history: No acute respiratory vents overnight. Stable oxygen requirements. Pulmonology Exam Inpatient Vital signs and Labs for Last 24 Hours: Temp Pulse Resp BP Pulse Ox O2 Del Method O2 Flow Rate 97.7 F 84 14 92/58 L 91 L Room Air 2 04/29/23 07:38 04/29/23 06:00 04/29/23 06:00 04/29/23 06:00 04/29/23 06:00 04/29/23 06:41 04/29/23 04:00 FiO2 40 04/26/23 06:30 Laboratory Results - last 24 hr 04/28/23 05:50: Iron 143, TIBC 210 L, Iron Saturation 68.93027 H, Ferritin 760 H 04/29/23 05:28: WBC 13.4 H, RBC 2.55 L, Hgb 9.9 L, Hct 33.1 L, MCV 129.7 H, MCH 38.9 H, MCHC 30.0 L, RDW 15.3, Plt Count 102 L, MPV 13.9 H, Neut % (Auto) 76.7, Lymph % (Auto) 12.1, [place] % (Auto) 10.1 H, Eos % (Auto) 0.6, Baso % (Auto) 0.5, Neut # (Auto) 10.3 H, Lymph # (Auto) 1.6, [place] # (Auto) 1.4 H, Eos # (Auto) 0.1, Baso # (Auto) 0.1, Sodium 139, Potassium 3.9, Chloride 106, Carbon Dioxide 30, Anion Gap 6.9, BUN 27 H D, Creatinine 0.70, Estimated Creat Clear 78, Estimated GFR 85, Est GFR ( Amer) 103, Glucose 105 H, Calcium 7.9 L, Phosphorus 2.1 L, Magnesium 1.4 L, Total Bilirubin 8.7 H, AST 264 H, ALT 84 H, Alkaline Phosphatase 197 H, Total Protein 5.5 L, Albumin 2.3 L, Globulin 3.2, Albumin/Globulin Ratio 0.7 L I & O for Labs for Last 24 Hours: Intake & Output 04/26/23 04/27/23 04/28/23 04/29/23 23:59 23:59 23:59 23:59 Intake Total 3107.528 / 3307.528 1601.439 / 1999.280 2626.15 / 1722.15 180 / 180 Output Total 1365 / 1365 800 / 860 615 / 690 625 / 625 Balance 1742.528 / 1942.528 801.439 / 920.588 5741.15 / 1032.15 -445 / -445 Weight 175 lb 3.539 oz 182 lb 9 oz 182 lb 9.001 oz 184 lb Microbiology Reports for the Last 24 Hours: Microbiology 04/19/23 10:52 Blood Blood Culture - Final Escherichia coli 04/22/23 07:45 Blood Blood Culture - Final NO GROWTH AFTER 5 DAYS 04/22/23 07:50 Blood Blood Culture - Final NO GROWTH AFTER 5 DAYS Constitutional: Present moderate distress Head: Present normocephalic and atraumatic ENT: Present normal exam and normal oropharynx Neck: Present normal inspection Respiratory: Present respiratory distress, rhonchi, crackles and diminished air movement; Absent wheezes or able to speak in complete sentences Cardiac: Present S1/S2, Tachycardia and radial pulses present GI: Present soft and distention; Absent tenderness or guarding Rectal (female): Present deferred (female): Present deferred Skin: Present intact; Absent cyanosis or jaundice Neuro: Present alert and awake; Absent oriented x 3 Extremities: Present normal inspection and edema; Absent clubbing or cyanosis Psychiatric: Present normal affect and cooperative Assessment and Plan *Assessment and plan (1) Acute respiratory failure with hypoxia and hypercarbia: Status: Acute Category: Medical Code(s): J96.01 - Acute respiratory failure with hypoxia; J96.02 - Acute respiratory failure with hypercapnia (2) Pneumonia: Status: Acute Qualifiers: Pneumonia type: due to Escherichia coli Laterality: bilateral Lung location: unspecified part of lung Qualified Code(s): J15.5 - Pneumonia due to Escherichia coli Category: Medical Code(s): J18.9 - Pneumonia, unspecified organism Plan Ms. 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 intake. On presentation patient noted to irregular during this including hypokalemia, hypocalcemia hyperglycemia and ANDERS. Pulmonary function testing January 2023 no evidence of obstructive lung disease. Mild restriction noted. Severely reduced DLCO at 30% predicted. Patient electrolytes has been repleted along with initiation of CIWA protocol, thia
--- NOTE | 2023-04-29 09:28 | PC.NURSE ---
COURTESY TECH NOTE; ROUNDED ON PT 0820, PT DENIED NEED FOR DRINK. ASSISTED PRIMARY TECH TO CHANGE PT BRIEF, Q2H TURN PT, LEFT SIDE LYING, AND POSITION PT IN BED. CALL LIGHT WITHIN REACH, NO FURTHER REQUESTS AT THIS TIME Stefani ASNTIAGO, ROLF
--- NOTE | 2023-04-29 09:30 | PC.NURSE ---
0930 pt up to chair at this time, attempted to turn on lights and brighten up room. Pt family members requested lights be turned off and blinds closed as the light is hurting her (family members) eyes.
--- NOTE | 2023-04-29 10:08 | DIET.NUTRFU ---
Diet order continues to be pureed solids, nectar thick liquids. Pt is tolerating these textures and consistencies well.
--- NOTE | 2023-04-29 13:49 | EXP.PN ---
Subjective *Date: 04/29/23 *Time: 13:49 Interval history: No acute events overnight. She feels better overall Exam Data for Last 24 hours Vital signs and Labs for Last 24 Hours: Temp Pulse Resp BP Pulse Ox O2 Del Method O2 Flow Rate 98.1 F 88 18 91/43 L 96 Room Air 2 04/29/23 11:05 04/29/23 10:00 04/29/23 10:00 04/29/23 10:00 04/29/23 10:00 04/29/23 11:20 04/29/23 04:00 FiO2 40 04/26/23 06:30 Laboratory Results - last 24 hr 04/29/23 05:28: WBC 13.4 H, RBC 2.55 L, Hgb 9.9 L, Hct 33.1 L, MCV 129.7 H, MCH 38.9 H, MCHC 30.0 L, RDW 15.3, Plt Count 102 L, MPV 13.9 H, Neut % (Auto) 76.7, Lymph % (Auto) 12.1, [place] % (Auto) 10.1 H, Eos % (Auto) 0.6, Baso % (Auto) 0.5, Neut # (Auto) 10.3 H, Lymph # (Auto) 1.6, [place] # (Auto) 1.4 H, Eos # (Auto) 0.1, Baso # (Auto) 0.1, Sodium 139, Potassium 3.9, Chloride 106, Carbon Dioxide 30, Anion Gap 6.9, BUN 27 H D, Creatinine 0.70, Estimated Creat Clear 78, Estimated GFR 85, Est GFR ( Amer) 103, Glucose 105 H, Calcium 7.9 L, Phosphorus 2.1 L, Magnesium 1.4 L, Total Bilirubin 8.7 H, AST 264 H, ALT 84 H, Alkaline Phosphatase 197 H, Total Protein 5.5 L, Albumin 2.3 L, Globulin 3.2, Albumin/Globulin Ratio 0.7 L I & O for Last 24 hours: Intake & Output 04/26/23 04/27/23 04/28/23 04/29/23 23:59 23:59 23:59 23:59 Intake Total 3107.528 / 3307.528 1601.439 / 0964.033 7479.15 / 1722.15 340 / 340 Output Total 1365 / 1365 800 / 860 615 / 690 625 / 625 Balance 1742.528 / 1942.528 801.439 / 122.884 9160.15 / 1032.15 -285 / -285 Weight 79.479 kg 82.809 kg 82.809 kg 83.461 kg Constitutional Constitutional: no acute distress *Routine HEENT Exam Head: Present normocephalic Eye: Present EOMI and PERRL ENT: Present mucous membranes moist *Routine Neck Exam Neck: Present supple; Absent lymphadenopathy *Routine Respiratory Exam Respiratory: Present CTA bilaterally *Routine Cardiovascular Exam Cardiovascular: Present RRR *Routine Abdominal Exam Abdominal: Present soft and normoactive bowel sounds; Absent tenderness *Routine Extremities Exam Extremities: Present edema (bilateral lower extremities); Absent cyanosis or clubbing *Routine Skin Exam Skin: Present warm; Absent rash *Routine Neurological Exam Neurological: Present alert and oriented X3 Assessment and Plan *Assessment and plan (1) Acute respiratory failure with hypoxemia: Status: Acute Category: Medical Code(s): J96.01 - Acute respiratory failure with hypoxia (2) Pneumonia: Status: Acute Qualifiers: Pneumonia type: due to Escherichia coli Laterality: bilateral Lung location: unspecified part of lung Qualified Code(s): J15.5 - Pneumonia due to Escherichia coli Category: Medical Code(s): J18.9 - Pneumonia, unspecified organism (3) C. difficile diarrhea: Status: Acute Category: Medical Code(s): A04.72 - Enterocolitis due to Clostridium difficile, not specified as recurrent (4) Hypophosphatemia: Status: Acute Category: Medical Code(s): E83.39 - Other disorders of phosphorus metabolism (5) Cirrhosis: Status: Acute Qualifiers: Hepatic cirrhosis type: alcoholic cirrhosis Ascites presence: with ascites Qualified Code(s): K70.31 - Alcoholic cirrhosis of liver with ascites Category: Medical Code(s): K74.60 - Unspecified cirrhosis of liver (6) Hyperbilirubinemia: Status: Acute Category: Medical Code(s): E80.6 - Other disorders of bilirubin metabolism (7) Seizure disorder: Status: Acute Category: Medical Code(s): G40.909 - Epilepsy, unspecified, not intractable, without status epilepticus (8) Macrocytosis without anemia: Status: Acute Category: Medical Code(s): D75.89 - Other specified diseases of blood and blood-forming organs (9) Thrombocytopenia: Status: Acute Category: Medical Code(s): D69.6 - Thrombocytopeni
--- NOTE | 2023-04-29 15:33 | PC.NURSE ---
[address] Batres by phone that pt has not voided this shift. pt denies urge to void or pain. pt abdomen is not distended. [address] Batres by phone that pt has now voided approx 200 ml of urine.
--- NOTE | 2023-04-29 16:17 | PC.NURSE ---
pt was up to the chair from 9a to approx 1300. pt tolerated well. pt continues to have scattered rhonchi and wheezes with occasional crackles noted. bowel sounds are active in all quads. pt has known hernia that is soft. nad noted. pt is a/o x 4. pt was able to be transferred back to bed with assist x 2. family present at bedside at this time.
[2023-04-30] VITALS: BP 98/67; PULSE 80; PULSE 85; RESP 18; TEMP 36.4; O2SAT 94
[2023-04-30 04:00] VITALS: BP 98/63; PULSE 76; PULSE 80; RESP 18; TEMP 36.4; O2SAT 94; BMI 26.5
[2023-04-30 06:26] LABS: Basophils # 0.1 K/mm3 (0-0.2); Basophils % 0.4 % (0.1-2.0); Eosinophils # 0.1 K/mm3 (0.0-0.4); Eosinophils % 0.6 % (0.1-12.0); Hemoglobin 9.2 g/dL (12.2-16.2); Lymphocytes # 1.8 K/mm3 (0.7-4.5); Lymphocytes % 15.9 % (10-50); Mean Corpuscular HGB Conc 30.6 g/dL (31.8-35.4); Mean Corpuscular Volume 131.4 fl (81-99); Mean Platelet Volume 12.9 fl (7.4-10.4); Monocytes # 1.2 K/mm3 (0.1-1.0); Monocytes % 10.6 % (1.7-9.3); Neutrophils # 8.3 K/mm3 (1.8-7.8); Neutrophils % 72.4 % (37.0-80.0); Platelet Count 99 K/mm3 (142-424); Red Blood Count 2.28 M/mm3 (4.20-5.40); White Blood Count 11.5 K/mm3 (4.8-10.8)
[2023-04-30 06:27] LABS: Alanine Aminotransferase 80 U/L (12-78); Albumin Level 2.3 g/dl (3.5-5.0); Albumin/Globulin Ratio 0.7 (1.1-1.8); Alkaline Phosphatase 179 U/L (38-126); Anion Gap 8.8 mEq/L (5-15); Aspartate Amino Transferase 233 U/L (14-36); Bilirubin,Total 7.9 mg/dl (0.2-1.3); Blood Urea Nitrogen 21 mg/dl (7-17); Calcium 7.8 mg/dl (8.4-10.2); Carbon Dioxide 27 mmol/L (22.0-30.0); Chloride 105 mmol/L (98-107); Creatinine Clearance Estimated 78 mL/min (50-200); Estimated Glomerular Filt Rate 102 ml/min (>60); GFR (African American) 123 ML/MIN (>60); Globulin 3.1 g/dL (1.3-3.2); Glucose 90 mg/dl (74-100); Magnesium 1.7 mg/dl (1.6-2.3); Potassium 3.8 mmoL/L (3.5-5.1); Sodium 137 mmol/L (136-145); Total Protein,Serum 5.4 g/dl (6.3-8.2)
[2023-04-30 06:34] LABS: Mean Corpuscular Hemoglobin 40.3 pg (27.0-31.2)
[2023-04-30 08:00] VITALS: BP 112/54; PULSE 85; PULSE 90; RESP 17; TEMP 36.8; O2SAT 92
--- NOTE | 2023-04-30 09:02 | PC.NURSE ---
COURTESY TECH NOTE; ROUNDED ON PT 0825, PT DENIED NEED FOR DRINK, ASSISTANCE WITH RESTROOM, AND NEED TO REPOSITION IN BED. CALL LIGHT WITHIN REACH, NO FURTHER REQUESTS AT THIS TIME ROLF MACHADO
--- NOTE | 2023-04-30 09:19 | EXP.PULM.PN ---
Subjective *Date: 04/30/23 *Time: 10:18 Interval history: No acute respiratory vents overnight. Patient remained on room air. Admits continued improvement in her respiratory symptoms. Continued to have cough and productive phlegm. Pulmonology Exam Inpatient Vital signs and Labs for Last 24 Hours: Temp Pulse Resp BP Pulse Ox O2 Del Method O2 Flow Rate 98.3 F 85 17 112/54 L 92 L Room Air 2 04/30/23 08:00 04/30/23 08:00 04/30/23 08:00 04/30/23 08:00 04/30/23 08:00 04/30/23 08:00 04/29/23 04:00 FiO2 40 04/26/23 06:30 Laboratory Results - last 24 hr 04/30/23 05:25: WBC 11.5 H, RBC 2.28 L, Hgb 9.2 L, Hct 30.0 L, MCV 131.4 H, MCH 40.3 H*, MCHC 30.6 L, RDW 15.0, Plt Count 99 L, MPV 12.9 H, Neut % (Auto) 72.4, Lymph % (Auto) 15.9, [place] % (Auto) 10.6 H, Eos % (Auto) 0.6, Baso % (Auto) 0.4, Neut # (Auto) 8.3 H, Lymph # (Auto) 1.8, [place] # (Auto) 1.2 H, Eos # (Auto) 0.1, Baso # (Auto) 0.1, Sodium 137, Potassium 3.8, Chloride 105, Carbon Dioxide 27, Anion Gap 8.8, BUN 21 H, Creatinine 0.60, Estimated Creat Clear 78, Estimated GFR 102, Est GFR ( Amer) 123, Glucose 90, Calcium 7.8 L, Magnesium 1.7 D, Total Bilirubin 7.9 H, AST 233 H, ALT 80 H, Alkaline Phosphatase 179 H, Total Protein 5.4 L, Albumin 2.3 L, Globulin 3.1, Albumin/Globulin Ratio 0.7 L I & O for Labs for Last 24 Hours: Intake & Output 04/27/23 04/28/23 04/29/23 04/30/23 23:59 23:59 23:59 23:59 Intake Total 1601.439 / 2142.556 7169.15 / 1722.15 520 / 520 360 / 360 Output Total 800 / 860 615 / 690 825 / 825 200 / 200 Balance 801.439 / 817.007 1419.15 / 1032.15 -305 / -305 160 / 160 Weight 182 lb 9 oz 182 lb 9.001 oz 184 lb 185 lb 6 oz Microbiology Reports for the Last 24 Hours: Microbiology 04/19/23 10:52 Blood Blood Culture - Final Escherichia coli 04/22/23 07:45 Blood Blood Culture - Final NO GROWTH AFTER 5 DAYS 04/22/23 07:50 Blood Blood Culture - Final NO GROWTH AFTER 5 DAYS Constitutional: Present moderate distress Head: Present normocephalic and atraumatic ENT: Present normal exam and normal oropharynx Neck: Present normal inspection Respiratory: Present rhonchi and crackles; Absent respiratory distress, wheezes or able to speak in complete sentences Cardiac: Present S1/S2, Tachycardia and radial pulses present GI: Present soft and distention; Absent tenderness or guarding Rectal (female): Present deferred (female): Present deferred Skin: Present intact; Absent cyanosis or jaundice Neuro: Present alert, awake and oriented x 3 Extremities: Present normal inspection and edema; Absent clubbing or cyanosis Psychiatric: Present normal affect and cooperative Assessment and Plan *Assessment and plan (1) Acute respiratory failure with hypoxia and hypercarbia: Status: Acute Category: Medical Code(s): J96.01 - Acute respiratory failure with hypoxia; J96.02 - Acute respiratory failure with hypercapnia (2) Pneumonia: Status: Acute Qualifiers: Laterality: bilateral Lung location: unspecified part of lung Pneumonia type: due to Escherichia coli Qualified Code(s): J15.5 - Pneumonia due to Escherichia coli Category: Medical Code(s): J18.9 - Pneumonia, unspecified organism Plan Ms. 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 intake. On presentation patient noted to irregular during this including hypokalemia, hypocalcemia hyperglycemia and ANDERS. Pulmonary function testing January 2023 no evidence of obstructive lung disease. Mild restriction noted. Severely reduced DLCO at 30% predicted. Patient electrolytes has been repleted along with initiation of CIWA protocol, thiamine B12 and folate repletion. She has also been re
--- NOTE | 2023-04-30 10:18 | P.PN_ITS ---
Subjective *Date: 04/30/23 *Time: 10:18 Interval history: She saturated in the low-mid 90s overnight on room air. She will complete day 10 of oral vancomycin today Exam Data for Last 24 hours Vital signs and Labs for Last 24 Hours: Temp Pulse Resp BP Pulse Ox O2 Del Method O2 Flow Rate 98.3 F 85 17 112/54 L 92 L Room Air 2 04/30/23 08:00 04/30/23 08:00 04/30/23 08:00 04/30/23 08:00 04/30/23 08:00 04/30/23 09:00 04/29/23 04:00 FiO2 40 04/26/23 06:30 Laboratory Results - last 24 hr 04/30/23 05:25: WBC 11.5 H, RBC 2.28 L, Hgb 9.2 L, Hct 30.0 L, MCV 131.4 H, MCH 40.3 H*, MCHC 30.6 L, RDW 15.0, Plt Count 99 L, MPV 12.9 H, Neut % (Auto) 72.4, Lymph % (Auto) 15.9, [place] % (Auto) 10.6 H, Eos % (Auto) 0.6, Baso % (Auto) 0.4, Neut # (Auto) 8.3 H, Lymph # (Auto) 1.8, [place] # (Auto) 1.2 H, Eos # (Auto) 0.1, Baso # (Auto) 0.1, Sodium 137, Potassium 3.8, Chloride 105, Carbon Dioxide 27, Anion Gap 8.8, BUN 21 H, Creatinine 0.60, Estimated Creat Clear 78, Estimated GFR 102, Est GFR ( Amer) 123, Glucose 90, Calcium 7.8 L, Magnesium 1.7 D , Total Bilirubin 7.9 H, AST 233 H, ALT 80 H, Alkaline Phosphatase 179 H, Total Protein 5.4 L, Albumin 2.3 L, Globulin 3.1, Albumin/Globulin Ratio 0.7 L I & O for Last 24 hours: Intake & Output 04/27/23 04/28/23 04/29/23 04/30/23 23:59 23:59 23:59 23:59 Intake Total 1601.439 / 6573.039 0233.15 / 1722.15 520 / 520 360 / 360 Output Total 800 / 860 615 / 690 825 / 825 200 / 200 Balance 801.439 / 345.689 2264.15 / 1032.15 -305 / -305 160 / 160 Weight 82.809 kg 82.809 kg 83.461 kg 84.085 kg
--- NOTE | 2023-04-30 11:11 | EXP.DC.SUM ---
General Admission date:: 04/18/23 Discharge date: 04/30/23 HPI HPI HPI: 62yo female with history of coronary artery bypass surgery, cirrhosis, alcoholism, tobacco use disorder, COPD. She presented to the ER after 3 to 4 days of nausea, diarrhea, weakness. Poor p.o. intake. Family has been encouraging her to come to the hospital for several days but she refused to come until today. Feels weak, unable to ambulate independently. Denies any blood in vomit or stools. Numerous electrolyte and nutritional deficiencies identified on work-up in the ER. Patient has severe hypokalemia, hypocalcemia, hypoglycemia in the 30s on arrival. Additionally with ANDERS. Appears to have some worsening component of her cirrhosis. Given these abnormalities, ER consulted medicine for admission. Concern for nutritional deficiency secondary to her alcoholism worsened by gastroenteritis. After arrival to the floor, patient provides history along with the supplementation from family at bedside. She has history significant for CABG, cirrhosis diagnosed many years ago secondary to her alcoholism. Additionally has COPD and a seizure disorder. Has had withdrawal seizures from alcohol cessation in the past. Last drink 5 days ago. Used to drink heavily with at least a pint of vodka a day. Now drinks 2-4 Four Stacy's a day. Smokes 10-20 handrolled cigarettes daily. Received D50 in the ER for hypoglycemia. Additionally labs noted to have macrocytosis. Concerning for vitamin deficiency secondary to her alcoholism. Hospital Course Hospital Course Hospital Course: Ms. 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 She presented to the ER on 04/18 with nausea, diarrhea and weakness and was admitted with multiple electrolyte disturbances. She developed septic shock and sources of infection include c diff colitis and e coli bacteremia. #septic shock #e coli bacteremia #c diff colitis #acute hypoxic respiratory failure #acute encephalopathy #anders, resolved #hypokalemia #hypocalcemia #hypomagnesemia #hypophosphatemia #cirrhosis #thrombocytopenia The patient received a 10 day course of vancomycin for her cdiff infection. She completed a 10 day course of levofloxacin after repeat blood cultures were negative for her e coli bacteremia. Her hypotension resolved with midodrine; vasopressin was weaned off a few days before day of discharge. Hypotension is chronic and related to her history of cirrhosis. She will need to establish care with GI for management of cirrhosis. Her electrolytes were repleted. She was prescribed five more days of magnesium. She was started on Requip for restless leg syndrome after iron deficiency was ruled out. She will need to follow up with her PCP. She should follow up with Neurology for her questionable history of siezures. She should follow up with Pulmonology for evaluation for JAN. Exam Data for Last 24 hours Vital signs and Labs for Last 24 Hours: Temp Pulse Resp BP Pulse Ox O2 Del Method O2 Flow Rate 98.3 F 85 17 112/54 L 92 L Room Air 2 04/30/23 08:00 04/30/23 08:00 04/30/23 08:00 04/30/23 08:00 04/30/23 08:00 04/30/23 09:00 04/29/23 04:00 FiO2 40 04/26/23 06:30 Laboratory Results - last 24 hr 04/30/23 05:25: WBC 11.5 H, RBC 2.28 L, Hgb 9.2 L, Hct 30.0 L, MCV 131.4 H, MCH 40.3 H*, MCHC 30.6 L, RDW 15.0, Plt Count 99 L, MPV 12.9 H, Neut % (Auto) 72.4, Lymph % (Auto) 15.9, [place] % (Auto) 10.6 H, Eos % (Auto) 0.6, Baso % (Auto) 0.4, Neut # (Auto) 8.3 H, Lymph # (Auto) 1.8, [place] # (Auto) 1.2 H, Eos # (Auto) 0.1, Baso # (Auto) 0.1, Sodium 137, Potassium 3.8, Chloride 105, Carbon Dioxide 27, Anion Gap 8.8, BUN 21 H, Creatinine 0.60, Estimated Creat Clear 78, Estimated GFR 102, Est GFR ( Amer) 123, Glucose 90, Calcium 7.8 L, Magnesium 1.7 D, Total Bilirubin 7.9 H, A
[2023-04-30 11:31] VITALS: BP 82/71; PULSE 86; RESP 18; TEMP 36.5; O2SAT 95
[2023-04-30 12:00] VITALS: PULSE 80
--- NOTE | 2023-04-30 13:07 | PC.NURSE ---
report called to Rasheeda MEJIA at [facility] in [place], called for ambulance for transport and is on the way
--- NOTE | 2023-04-30 13:08 | PC.NURSE ---
removing midline and iv both in upper left arm
--- NOTE | 2023-04-30 13:28 | PC.NURSE ---
pt had bm, cleaned pt up and changed brief, pt's family iban marryn for her to wear so removed hospital gown and placed new gown on pt
== END 2023-04-30 13:45 | disposition home or self-care (01) | DRG 871 ==
LOC: ER 17:13 → 2ND 17:46
PROVIDERS: Internal Medicine; Internal Medicine Pulmonary Disease; Nurse Practitioner Family; Admitting Provider Internal Medicine Adolescent Medicine; Emergency Provider Emergency Medicine; PCP Family Medicine; Visit Provider Internal Medicine Adolescent Medicine
DX: A41.9 Sepsis, unspecified organism (principal); J18.9 Pneumonia, unspecified organism; J96.91 Respiratory failure, unspecified with hypoxia; J96.02 Acute respiratory failure with hypercapnia; R65.21 Severe sepsis with septic shock; E46 Unspecified protein-calorie malnutrition; F10.239 Alcohol dependence with withdrawal, unspecified; J44.0 Chronic obstructive pulmonary disease with (acute) lower respiratory infection; A04.72 Enterocolitis due to Clostridium difficile, not specified as recurrent; I74.5 Embolism and thrombosis of iliac artery; N17.9 Acute kidney failure, unspecified; E16.2 Hypoglycemia, unspecified; E86.0 Dehydration; Z95.1 Presence of aortocoronary bypass graft; F10.20 Alcohol dependence, uncomplicated; J44.9 Chronic obstructive pulmonary disease, unspecified; G40.909 Epilepsy, unspecified, not intractable, without status epilepticus; K70.31 Alcoholic cirrhosis of liver with ascites; E83.51 Hypocalcemia; D69.6 Thrombocytopenia, unspecified; E87.6 Hypokalemia; R19.7 Diarrhea, unspecified; E83.42 Hypomagnesemia; G47.33 Obstructive sleep apnea (adult) (pediatric)
CPT/HCPCS: 36410; 36415; 70371; 71045; 71275; 74177; 76705; 80048; 80053; 80329; 82140; 82607; 82728; 82746; 82803; 82962; 83540; 83550; 83735; 84100; 84425; 85007; 85025; 85610; 85730; 87040; 87077; 87186; 87507; 87636; 92526; 92610; 92611; 93005; 94640; 94660; 94667; 94761; 97110; 97162; 97166; 97530; 99285; C9803; J0696; J1953; J1956; J2543; J3475; Q9967; U0003; U0005